=== PATIENT | female | born 1975 | race Caucasian/White ===

== ENCOUNTER 2020-03-03 06:04 | Outpatient (REF) | payer OTHER, SELFPAY ==
[2020-03-03 06:49] LABS: MANUAL DIFF FLAG NO
[2020-03-03 07:00] LABS: Basophils Percent Auto 0.7 % (0-2); Eosinophils Absolute Auto 0.2 X10*3/uL (0.0-0.4); Eosinophils Percent Auto 2.8 % (0-4); Hematocrit 37.9 % (37-47); Hemoglobin 12.3 g/dl (12.0-16.0); Imm Gran Abs Auto 0.01 X10*3/uL (0.00-0.03); Imm Gran Pct Auto 0.2 % (0.0-0.4); Lymphocytes Absolute Auto 2.4 X10*3/uL (1.2-4.9); Lymphocytes Percent Auto 44.4 % (20-40); Mean Corpuscular HGB Conc 32.5 g/dl (31.0-35.0); Mean Corpuscular Hemoglobin 29.9 pg (27.0-33.0); Mean Platelet Volume 11.1 fL (9.4-12.3); Monocytes Absolute Auto 0.3 X10*3/uL (0.1-1.2); Monocytes Percent Auto 5.2 % (2-11); Neutrophils Absolute Auto 2.5 X10*3/uL (2.0-8.3); Neutrophils Percent Auto 46.7 % (45-73); Platelet Count 180 X10*3/uL (160-400); Red Blood Count 4.12 X10*6/uL (4.20-5.50); Red Cell Distribution Width 13.1 % (11.0-16.0); White Blood Count 5.4 X10*3/uL (4.8-10.8)
[2020-03-03 07:14] LABS: Alanine Aminotransferase 23 U/L (0-31); Albumin Level 4.6 g/dL (3.5-5.0); Alkaline Phosphatase 68 U/L (39-117); Anion Gap 10 (12-20); Aspartate Amino Transferase 28 U/L (5-31); Bilirubin Total 0.4 mg/dL (0.0-1.0); Blood Urea Nitrogen 16 mg/dL (9-16); Calcium 9.7 mg/dL (8.4-10.2); Carbon Dioxide 31 mmol/L (22-29); Chloride 103 mmol/L (96-108); Cholesterol 199 mg/dL; Estimated Glomerular Filt Rate > 60; Glucose Fasting 100 mg/dL (60-99); HDL Cholesterol 59 mg/dL; LDL Cholesterol Calculated 124 mg/dl; Potassium 4.3 mmol/l (3.3-5.1); Sodium 140 mmol/L (135-145); Total Protein 7.3 g/dL (6.5-8.0); Triglycerides 84 mg/dL
[2020-03-03 07:49] LABS: Glucose Urine UA NEG (NEG); Leukocyte Esterase Urine NEG (NEG); Nitrite Urine NEG (NEG); Specific Gravity - Urine 1.025 (1.005-1.025); Urine Blood NEG (NEG); Urine Ketones NEG (NEG); Urine Protein NEG (NEG-TRACE)
[2020-03-03 07:52] LABS: Appearance Urine CLEAR; Color Urine YELLOW
[2020-03-03 08:09] LABS: RBC Urine 0 /HPF (0)
[2020-03-03 08:10] LABS: Bacteria Urine TRACE /LPF; Squamous Epithelial Cell Urine 1+ /LPF
== END 2020-03-03 06:05 | disposition home or self-care (01) ==
LOC: HO.LAB 06:04
PROVIDERS: Visit Provider Internal Medicine
DX: E78.00 Pure hypercholesterolemia, unspecified (principal); N39.0 Urinary tract infection, site not specified; F17.200 Nicotine dependence, unspecified, uncomplicated
CPT/HCPCS: 36415; 80053; 80061; 81001; 85025

== ENCOUNTER 2021-01-26 14:40 | Outpatient (REF) | payer OTHER, SELFPAY ==
[2021-01-26 17:57] LABS: Appearance Urine HAZY; Color Urine DK YELLOW; Glucose Urine UA 100 MG/DL (NEG); Leukocyte Esterase Urine TRACE (NEG); Nitrite Urine POS (NEG); UACC Culture Trigger YES; Urine Blood NEG (NEG); Urine Ketones 15 MG/DL (NEG); Urine Protein 2+ MG/DL (NEG-TRACE)
[2021-01-26 18:11] LABS: Bacteria Urine 2+ /LPF; RBC Urine 0-2 /HPF (0); Squamous Epithelial Cell Urine TRACE /LPF
== END 2021-01-26 14:41 | disposition home or self-care (01) ==
LOC: HO.LAB 14:40
PROVIDERS: PCP Internal Medicine; Visit Provider Internal Medicine
DX: R30.0 Dysuria (principal)
CPT/HCPCS: 81001; 87086; 87088; 87186

== ENCOUNTER 2021-03-31 14:15 | Outpatient (REF) | payer OTHER, SELFPAY ==
[2021-03-31 15:02] LABS: Appearance Urine CLEAR; Color Urine YELLOW; Glucose Urine UA NEG (NEG); Leukocyte Esterase Urine NEG (NEG); Nitrite Urine POS (NEG); PH 6.5 (5.0-8.0); Specific Gravity - Urine 1.015 (1.005-1.025); UACC Culture Trigger YES; Urine Blood NEG (NEG); Urine Ketones NEG (NEG); Urine Protein TRACE MG/DL (NEG-TRACE)
[2021-03-31 15:22] LABS: Bacteria Urine 1+ /LPF; RBC Urine 0 /HPF (0); Squamous Epithelial Cell Urine 1+ /LPF; WBC Urine 0 /HPF (0-4)
== END 2021-03-31 14:16 | disposition home or self-care (01) ==
LOC: HO.LAB 14:15
PROVIDERS: PCP Internal Medicine; Visit Provider Internal Medicine
DX: R30.0 Dysuria (principal)
CPT/HCPCS: 81001; 81003; 87086; 87088; 87186

== ENCOUNTER 2021-04-20 05:55 | Outpatient (REF) | payer BC, SELFPAY ==
[2021-04-20 06:08] LABS: MANUAL DIFF FLAG NO
[2021-04-20 07:36] LABS: Basophils Percent Auto 0.8 % (0-2); Eosinophils Absolute Auto 0.2 X10*3/uL (0.0-0.4); Eosinophils Percent Auto 3.1 % (0-4); Hematocrit 38.6 % (37.0-47.0); Hemoglobin 12.5 g/dl (12.0-16.0); Imm Gran Abs Auto 0.01 X10*3/uL (0.00-0.03); Imm Gran Pct Auto 0.2 % (0.0-0.4); Lymphocytes Absolute Auto 2.3 X10*3/uL (1.2-4.9); Lymphocytes Percent Auto 47.2 % (20-40); Mean Corpuscular HGB Conc 32.4 g/dl (31.0-35.0); Mean Corpuscular Hemoglobin 29.7 pg (27.0-33.0); Mean Corpuscular Volume 91.7 fL (80.0-98.0); Mean Platelet Volume 11.4 fL (9.4-12.3); Monocytes Absolute Auto 0.3 X10*3/uL (0.1-1.2); Monocytes Percent Auto 6.2 % (2-11); Neutrophils Percent Auto 42.5 % (45-73); Platelet Count 192 X10*3/uL (160-400); Red Blood Count 4.21 X10*6/uL (4.20-5.50); Red Cell Distribution Width 13.4 % (11.0-16.0); White Blood Count 4.8 X10*3/uL (4.8-10.8)
[2021-04-20 08:12] LABS: Alanine Aminotransferase 20 U/L (0-31); Albumin Level 4.5 g/dL (3.5-5.0); Alkaline Phosphatase 76 U/L (39-117); Anion Gap 12 (12-20); Aspartate Amino Transferase 25 U/L (5-31); Bilirubin Total < 0.2 mg/dL (0.0-1.0); Blood Urea Nitrogen 11 mg/dL (9-16); Carbon Dioxide 29 mmol/L (22-29); Chloride 104 mmol/L (96-108); Cholesterol 184 mg/dL; Estimated Glomerular Filt Rate > 60; Glucose Fasting 89 mg/dL (60-99); HDL Cholesterol 53 mg/dL; LDL Cholesterol Calculated 113 mg/dl; Potassium 4.3 mmol/L (3.3-5.1); Sodium 141 mmol/L (135-145); Total Protein 7.4 g/dL (6.5-8.0); Triglycerides 94 mg/dL
[2021-04-20 09:06] LABS: Appearance Urine CLEAR; Color Urine YELLOW; Glucose Urine UA NEG (NEG); Leukocyte Esterase Urine NEG (NEG); Nitrite Urine NEG (NEG); Specific Gravity - Urine 1.025 (1.005-1.025); Urine Blood NEG (NEG); Urine Ketones NEG (NEG); Urine Protein NEG (NEG-TRACE)
== END 2021-04-20 05:56 | disposition home or self-care (01) ==
LOC: HO.LAB 05:55
PROVIDERS: PCP Internal Medicine; Visit Provider Internal Medicine
DX: E78.00 Pure hypercholesterolemia, unspecified (principal); F11.11 Opioid abuse, in remission; R30.0 Dysuria; F17.200 Nicotine dependence, unspecified, uncomplicated
CPT/HCPCS: 36415; 80053; 80061; 81003; 85025

== ENCOUNTER 2021-08-05 20:58 | Emergency (ER) | payer OTHER, BC, SELFPAY ==
--- NOTE | ~2021-08-05 | XR_ITS ---
EXAMINATION: 1. LEFT SHOULDER. 2. LEFT HUMERUS. 3. LEFT ELBOW. CLINICAL INFORMATION: Fall. Pain. COMPARISON: None TECHNIQUE: 1. Left shoulder. 4 views 2. Left humerus. 2 views 3. Left elbow. 3 views. FINDINGS: 1. Left shoulder. No fracture or dislocation of shoulder. Glenohumeral and acromioclavicular joints are normal. 2. Left humerus. No fracture of the humerus. 2 small soft tissue calcifications in left axilla. 3. Left elbow. Normal left elbow. No fracture or dislocation. 2 small ossification at the medial malleolus of the humerus is chronic finding. There is no joint effusion. XR/XR humerus LT IMPRESSION: 1. Left shoulder. Normal left shoulder. 2. Left humerus. Normal left humerus. 3. Left elbow. Normal left elbow.
--- NOTE | ~2021-08-05 | XR_ITS ---
EXAMINATION: 1. LEFT SHOULDER. 2. LEFT HUMERUS. 3. LEFT ELBOW. CLINICAL INFORMATION: Fall. Pain. COMPARISON: None TECHNIQUE: 1. Left shoulder. 4 views 2. Left humerus. 2 views 3. Left elbow. 3 views. FINDINGS: 1. Left shoulder. No fracture or dislocation of shoulder. Glenohumeral and acromioclavicular joints are normal. 2. Left humerus. No fracture of the humerus. 2 small soft tissue calcifications in left axilla. 3. Left elbow. Normal left elbow. No fracture or dislocation. 2 small ossification at the medial malleolus of the humerus is chronic finding. There is no joint effusion. XR/XR shoulder LT min 2V IMPRESSION: 1. Left shoulder. Normal left shoulder. 2. Left humerus. Normal left humerus. 3. Left elbow. Normal left elbow.
--- NOTE | ~2021-08-05 | XR_ITS ---
EXAMINATION: 1. LEFT SHOULDER. 2. LEFT HUMERUS. 3. LEFT ELBOW. CLINICAL INFORMATION: Fall. Pain. COMPARISON: None TECHNIQUE: 1. Left shoulder. 4 views 2. Left humerus. 2 views 3. Left elbow. 3 views. FINDINGS: 1. Left shoulder. No fracture or dislocation of shoulder. Glenohumeral and acromioclavicular joints are normal. 2. Left humerus. No fracture of the humerus. 2 small soft tissue calcifications in left axilla. 3. Left elbow. Normal left elbow. No fracture or dislocation. 2 small ossification at the medial malleolus of the humerus is chronic finding. There is no joint effusion. XR/XR elbow LT min 3V IMPRESSION: 1. Left shoulder. Normal left shoulder. 2. Left humerus. Normal left humerus. 3. Left elbow. Normal left elbow.
[2021-08-05 21:09] VITALS: BP 152/107; PULSE 78; RESP 18; TEMP 36.3; O2SAT 99; BMI 21.9
--- NOTE | 2021-08-05 21:54 | ED.EXTPRO ---
HPI - Extremity Problem General Chief complaint: Extremity Injury, Upper Stated complaint: Fall at work/arm pain Time Seen by Provider: 08/05/21 21:46 Source: patient Mode of arrival: ambulatory Limitations: no limitations History of Present Illness HPI Narrative: Patient comes to the emergency room complaining of left-sided shoulder, upper arm, elbow pain. Patient states she tripped, fell on the left side of her body. Patient has history of a previous injury leading to an elbow dislocation. Patient states it feels about the same. Related Data Home Medications Medication Instructions Recorded Confirmed buprenorphine 8 mg-naloxone 2 mg 10 mg SUBLINGUAL DAILY 03/06/20 04/20/21 sublingual film ibuprofen 800 mg tablet 800 mg PO Q8H PRN 03/06/20 04/20/21 chlorhexidine gluconate 4 % 1 appl TOPICAL TID ml 06/28/20 04/20/21 topical liquid (Hibiclens) mupirocin 2 % topical ointment 1 appl TOPICAL TID 06/28/20 04/20/21 Previous Rx's Medication Instructions Recorded pravastatin 80 mg tablet 80 mg PO DAILY 90 Days #90 tab 04/20/21 Allergies Allergy/AdvReac Type Severity Reaction Status Date / Time penicillin V AdvReac Unknown Vomiting, Verified 04/20/21 14:43 diarrhea, Vommiting, diarrhea Penicillins [PENICILLINS] AdvReac Unknown VOMITING, Verified 04/20/21 14:43 DIARRHEA, SWEATING Review of Systems Review of Systems: Constitutional : No Weight loss, No Fever, No Chills, No Night Sweats, No Fatigue, No Malaise ENT/Mouth : No Hearing loss, No Ear Pain, No Nasal Congestion, No Sinus Pain, No Hoarseness, No sore throat, No Rhinorrhea, No Swallowing Difficulty Eyes: No Eye Pain, No Swelling, No Redness, No Foreign Body, No Discharge, No Vision Changes Cardiovascular : No Chest Pain, No SOB, No Dyspnea on Exertion, No Orthopnea, No Edema, No Palpitations Respiratory : No Cough, No Sputum, No Wheezing, No Smoke Exposure, No Dyspnea Gastrointestinal : No Nausea, No Vomiting, No Diarrhea, No Constipation, No abdominal Pain, No Hematochezia, No Melena Genitourinary : no irregular bleeding, No Dysuria, No Urinary Frequency, No Hematuria, No Urinary Incontinence, No Urgency, No Flank Pain, No Urinary Flow Changes, No Hesitancy Musculoskeletal : Complaining of left shoulder/upper arm/elbow pain Skin : No Skin Lesions, No rash Neuro : No Weakness, No Numbness, No Paresthesias, No Loss of Consciousness, No Dizziness, No Headache Psych : No Anxiety/Panic, No Depression, No SI/HI/AH/VH, No Social Issues, Heme/Lymph: No Bruising, No Bleeding,No Lymphadenopathy Endocrine : No Polyuria, No Polydipsia, No Temperature Intolerance [facility] Past Medical History Medical History History of opioid abuse Primary insomnia Pure hypercholesterolemia Smoker Surgical History History of cardiac catheterization History of microdiscectomy History of removal of cyst History of shoulder surgery S/P YU-BSO (total abdominal hysterectomy and bilateral salpingo-oophorectomy) Family History Family History Father Vascular disease Myocardial infarction Mother COPD (chronic obstructive pulmonary disease) Lung cancer Brother Myocardial infarction Sister Stroke Paternal Grandmother Stroke Other Substance abuse Social History Social History Housing: Apartment Alcohol intake: former Patient Tobacco Use Status: Current everyday Tobacco user Cigarettes Per Day: 10 Second Hand Smoke Exposure: Yes Advance Directives: No service: No Current occupational status: employed Physical Exam Vital Signs: Vital Signs: Last Vital Signs Temp 97.3 F 08/05/21 21:09 Pulse 73 08/05/21 22:18 Resp 16 08/05/21 22:18 BP 139/82 08/05/21 22:18 Pulse Ox 97 08/05/21 22:18 BMI result Body Mass Index 21.9 Const: Other: Appearance: Alert. Oriented X3. No acute distress. Eyes: Pupils equal, round and reactive to light. ENT: Pharynx normal. Neck: Normal inspection. Neck supple. No lymph nodes noted. No crepitus CVS: Normal heart rate and rhythm. Pulses normal. Normal S1 and S2 Respiratory: No respiratory distress. Breath sounds normal. No Wheezing. No rales Abdomen: Soft and nontender. No rigidity. No distention. Skin: Skin warm and dry. Normal skin color. Normal skin turgor. Extremities: No lower extremity edema. Patient holding her left arm with elbow flexed, towards her abdomen. Patient refusing to move the arm due to pain. No pain to palpation over the clavicle or the shoulder joint, pain to palpation over the upper humeral side lateral, no pain to flexion and extension of the left elbow. Neuro: Oriented X 3. No motor deficit. No sensory deficit. Moving all extremities. No slurred speech. CN 2 through 12 grossly intact Psych: calm, cooperative, normal affect Course Course Course Narrative: Discussed the x-rays with the patient, no acute findings. Likely having a contusion Versus sprain. I discussed with the patient that if the pain does not improve with anti-inflammatories in the next 3 days, she needs to follow-up with the primary care physician, more advanced imaging such as MRI may be needed. Discharge Plan Discharge Clinical Impression: Fall, Contusion Patient Disposition: Home, Self-Care Instructions: Contusion in Adults (ED) Additional Instructions: Please follow-up with your primary care physician tomorrow. If you have any worsening or new symptoms, please return to the emergency room or call 911 Prescriptions: No Action buprenorphine-naloxone 8-2 mg film 10 mg sublingual DAILY 0RF ibuprofen 800 mg tablet 800 mg PO Q8H PRN0RF mupirocin 2 % ointment 1 appl topical TID 0RF chlorhexidine gluconate [Hibiclens] 4 % liquid 1 appl topical TID 0RF pravastatin 80 mg tablet 80 mg PO DAILY 90 Days Qty: 90 3RF Referrals: Saba Stephenson PA-C [Physician Small Business Director] - 3 days
[2021-08-05] MEDS: Acetaminophen 325 MG TABLET 975 MG PO (22:17)
[2021-08-05 22:18] VITALS: BP 139/82; PULSE 73; RESP 16; O2SAT 97
== END 2021-08-05 23:14 | disposition home or self-care (01) ==
PROVIDERS: Emergency Provider Emergency Medicine; PCP Internal Medicine
DX: S40.012A Contusion of left shoulder, initial encounter (principal); M25.522 Pain in left elbow; W01.0XXA Fall on same level from slipping, tripping and stumbling without subsequent striking against object, initial encounter; Y93.9 Activity, unspecified; Y92.9 Unspecified place or not applicable; Y99.9 Unspecified external cause status; Z79.899 Other long term (current) drug therapy; Z87.891 Personal history of nicotine dependence
CPT/HCPCS: 73030; 73060; 73080; 99283; 99284

== ENCOUNTER 2021-08-17 06:16 | Outpatient (REF) | payer BC, SELFPAY ==
[2021-08-17 08:18] LABS: TSH reflex Free T4 3.18 uIU/mL (0.32-4.0); Vitamin D 25-OH Total 50.2 ng/mL (>30)
[2021-08-17 08:28] LABS: Alanine Aminotransferase 31 U/L (0-31); Albumin Level 4.4 g/dL (3.5-5.0); Alkaline Phosphatase 76 U/L (39-117); Anion Gap 12 (12-20); Aspartate Amino Transferase 36 U/L (5-31); Bilirubin Total 0.6 mg/dL (0.0-1.0); Blood Urea Nitrogen 14 mg/dL (9-16); Carbon Dioxide 28 mmol/L (22-29); Chloride 105 mmol/L (96-108); Cholesterol 225 mg/dL; Estimated Glomerular Filt Rate > 60; Glucose Fasting 87 mg/dL (60-99); HDL Cholesterol 54 mg/dL; LDL Cholesterol Calculated 146 mg/dl; Potassium 4.2 mmol/L (3.3-5.1); Sodium 141 mmol/L (135-145); Total Protein 7.5 g/dL (6.5-8.0); Triglycerides 125 mg/dL
== END 2021-08-17 06:17 | disposition home or self-care (01) ==
LOC: HO.LAB 06:16
PROVIDERS: PCP Internal Medicine; Visit Provider Internal Medicine
DX: E78.00 Pure hypercholesterolemia, unspecified (principal); E55.9 Vitamin D deficiency, unspecified
CPT/HCPCS: 36415; 80053; 80061; 82306; 84443

== ENCOUNTER 2021-10-05 08:46 | Outpatient (REF) | payer BC, SELFPAY ==
--- NOTE | ~2021-10-05 | MM_ITS ---
EXAMINATION: MM SCREENING DIGITAL BREAST TOMOSYNTHESIS, BILATERAL CLINICAL INFORMATION: Screening. Asymptomatic. The lifetime risk of breast cancer based on the Tyrer-Cuzick Model is 4%. COMPARISON: Mammography: 11/02/2017 TECHNIQUE: Digital breast tomosynthesis is performed in both the craniocaudal and mediolateral oblique views along with computer-aided detection (CAD). Synthesized 2D images are generated from the tomosynthesis. FINDINGS: There are scattered areas of fibroglandular density (ACR BI-RADS breast composition Category b). There are no significant masses, abnormal calcifications, or other abnormalities. No developing density or architectural abnormality. Low right axillary tail node stable. No significant changes. MM/MM tomosynthesis screening BI IMPRESSION: No mammographic evidence of malignancy. ASSESSMENT: BI-RADS 2: Benign RECOMMENDATION: Routine annual mammography screening. This patient's information was entered into a reminder system with a target due date for their next mammogram.
--- NOTE | ~2021-10-05 | MM_ITS ---
EXAMINATION: BONE DENSITOMETRY CLINICAL INDICATION: Asymptomatic postprocedural ovarian failure. COMPARISON: Baseline BD dated 01/22/2016. TECHNIQUE: Using a Next 1 Interactive DXA System (software version: 13.1) manufactured by [employer], dual-energy x-ray absorptiometry was performed of the lumbar spine and left hip. The images are of good technical quality. Summary results are attached. FINDINGS: AP SPINE L1-L3 (excluding L4): The data of L1-L4 has been changed to exclude the L4 vertebral body, because degenerative changes at this level may cause overestimation of lumbar spine density. Current: BMD 0.917 g/cm2, Z-score -1.8, T-score -2.1, osteopenia, 4.3% decrease from baseline (<5% change is not significant). Baseline: BMD 0.958 g/cm2. LEFT FEMUR, NECK: Current: BMD 0.798 g/cm2, Z-score -1.0, T-score -1.7, osteopenia. Baseline: BMD 0.918 g/cm2. LEFT FEMUR, TOTAL: Current: BMD 0.776 g/cm2, Z-score -1.4, T-score -1.8, osteopenia, 5.5% decrease from baseline (<5% change is not significant). Baseline: BMD 0.821 g/cm2. IDENTIFIED RISK FACTORS: Early menopause, secondary osteoporosis, tobacco use (current smoker), hysterectomy, bilateral oophorectomy. HISTORY OF FRACTURE: None listed. MEDICATIONS: Calcium or multivitamin. MM/XR DEXA axial skeleton IMPRESSION: 1. DIAGNOSIS: Osteopenia based on the lowest T-score value of -2.1 in the lumbar spine applying World Health Organization criteria. 2. 10-YEAR FRACTURE RISK PREDICTION, FRAX: Major osteoporotic fracture (clinical spine, forearm, hip or shoulder) 3.6%. Hip fracture 0.7%. 3. Treatment Recommendations: NOF guidelines recommend consideration for treatment in postmenopausal women and men age 50 and older presenting with the following: -A hip or vertebral (clinical or morphometric) fracture. -T-score less than or equal to -2.5 at the femoral neck or spine after appropriate evaluation to exclude secondary causes. -Low bone mass at the hip or spine and a 10-year fracture probability by FRAX of greater than or equal to 3% for hip fracture or greater than or equal to 20% for major osteoporotic fracture based on the [place] adapted WHO algorithm. 4. Other Recommendations: All treatment decisions require clinical judgment and consideration of individual patient factors, including patient preferences, comorbidities, previous drug use, risk factors not captured in the FRAX model (e.g. frailty, falls, vitamin D deficiency, increased bone turnover, interval significant decline in bone density) and possible under or overestimation of fracture risk by FRAX. Additional medical evaluation for secondary cause of low bone mineral density may be appropriate. FUTURE SCAN RECOMMENDATION: People with diagnosed cases of osteoporosis or at high risk for fracture should have regular bone mineral density tests. For patients eligible for Medicare, routine testing is allowed once every 2 years. The testing frequency can be increased to one year for patients who have rapidly progressing disease, those who are receiving or discontinuing medical therapy to restore bone mass, or have additional risk factors.
== END 2021-10-05 08:47 | disposition home or self-care (01) ==
LOC: HO.MAMMO 08:46
PROVIDERS: Visit Provider Internal Medicine
DX: Z12.31 Encounter for screening mammogram for malignant neoplasm of breast (principal); Z13.820 Encounter for screening for osteoporosis; E89.40 Asymptomatic postprocedural ovarian failure; M85.80 Other specified disorders of bone density and structure, unspecified site; Z78.0 Asymptomatic menopausal state
CPT/HCPCS: 77063; 77067; 77080

== ENCOUNTER 2021-12-22 06:36 | Outpatient (REF) | payer BC, SELFPAY ==
[2021-12-22 06:44] LABS: MANUAL DIFF FLAG NO
[2021-12-22 07:32] LABS: Basophils Absolute Auto 0.1 X10*3/uL (0.0-0.2); Basophils Percent Auto 0.7 % (0-2); Eosinophils Absolute Auto 0.1 X10*3/uL (0.0-0.4); Eosinophils Percent Auto 1.9 % (0-4); Hematocrit 40.2 % (37.0-47.0); Hemoglobin 13.2 g/dl (12.0-16.0); Imm Gran Abs Auto 0.02 X10*3/uL (0.00-0.03); Imm Gran Pct Auto 0.3 % (0.0-0.4); Lymphocytes Absolute Auto 2.7 X10*3/uL (1.2-4.9); Lymphocytes Percent Auto 36.8 % (20-40); Mean Corpuscular HGB Conc 32.8 g/dl (31.0-35.0); Mean Corpuscular Hemoglobin 29.7 pg (27.0-33.0); Mean Corpuscular Volume 90.5 fL (80.0-98.0); Mean Platelet Volume 11.4 fL (9.4-12.3); Monocytes Absolute Auto 0.4 X10*3/uL (0.1-1.2); Neutrophils Percent Auto 54.3 % (45-73); Platelet Count 197 X10*3/uL (160-400); Red Blood Count 4.44 X10*6/uL (4.20-5.50); Red Cell Distribution Width 13.8 % (11.0-16.0); White Blood Count 7.3 X10*3/uL (4.8-10.8)
[2021-12-22 08:03] LABS: Alanine Aminotransferase 14 U/L (0-31); Albumin Level 4.6 g/dL (3.5-5.0); Alkaline Phosphatase 71 U/L (39-117); Anion Gap 15 (12-20); Aspartate Amino Transferase 22 U/L (5-31); Blood Urea Nitrogen 18 mg/dL (9-16); Calcium 9.7 mg/dL (8.4-10.2); Carbon Dioxide 26 mmol/L (22-29); Chloride 104 mmol/L (96-108); Cholesterol 215 mg/dL; Estimated Glomerular Filt Rate > 60; Glucose Fasting 97 mg/dL (60-99); HDL Cholesterol 58 mg/dL; LDL Cholesterol Calculated 142 mg/dl; Potassium 4.5 mmol/L (3.3-5.1); Sodium 140 mmol/L (135-145); Total Protein 7.5 g/dL (6.5-8.0); Triglycerides 79 mg/dL
[2021-12-22 08:04] LABS: Appearance Urine Clear; Color Urine Yellow; Glucose Urine UA Negative (Negative); Leukocyte Esterase Urine Small (1+) (Negative); Nitrite Urine Negative (Negative); PH 5.5 (5.0-9.0); Urine Blood Negative (Negative); Urine Ketones Negative (Negative); Urine Protein Negative (Neg-Trace)
[2021-12-22 08:13] LABS: Bilirubin Total 0.2 mg/dL (0.0-1.0)
[2021-12-22 08:19] LABS: Bacteria Urine None Seen (None Seen); Hyaline Casts Urine 0-2 /LPF (0-2); RBC Urine 0-2 /HPF (0-2); UACC Culture Trigger YES; WBC Urine 0-5 /HPF (0-5)
[2021-12-22 08:21] LABS: TSH reflex Free T4 2.71 uIU/mL (0.32-4.0); Vitamin D 25-OH Total 63.5 ng/mL (>30)
== END 2021-12-22 06:37 | disposition home or self-care (01) ==
LOC: HO.LAB 06:36
PROVIDERS: PCP Internal Medicine; Visit Provider Internal Medicine
DX: I10 Essential (primary) hypertension (principal); E55.9 Vitamin D deficiency, unspecified; E78.00 Pure hypercholesterolemia, unspecified
CPT/HCPCS: 36415; 80053; 80061; 81001; 81003; 82306; 84443; 85025; 87086

== ENCOUNTER 2022-05-07 08:35 | Outpatient (REF) | payer BC, SELFPAY ==
[2022-05-07 09:50] LABS: Alanine Aminotransferase 25 U/L (0-31); Albumin Level 4.3 g/dL (3.5-5.0); Alkaline Phosphatase 85 U/L (39-117); Anion Gap 12 (12-20); Aspartate Amino Transferase 28 U/L (5-31); Bilirubin Total 0.4 mg/dL (0.0-1.0); Blood Urea Nitrogen 12 mg/dL (9-16); Calcium 9.8 mg/dL (8.4-10.2); Carbon Dioxide 29 mmol/L (22-29); Chloride 105 mmol/L (96-108); Cholesterol 149 mg/dL; Estimated Glomerular Filt Rate > 60; Glucose Fasting 79 mg/dL (60-99); HDL Cholesterol 41 mg/dL; LDL Cholesterol Calculated 91 mg/dl; Potassium 4.3 mmol/L (3.3-5.1); Sodium 142 mmol/L (135-145); Total Protein 6.8 g/dL (6.5-8.0); Triglycerides 87 mg/dL
== END 2022-05-07 08:36 | disposition home or self-care (01) ==
LOC: HO.LAB 08:35
PROVIDERS: PCP Internal Medicine; Visit Provider Internal Medicine
DX: E78.00 Pure hypercholesterolemia, unspecified (principal)
CPT/HCPCS: 36415; 80053; 80061

== ENCOUNTER 2022-05-10 09:49 | Outpatient (AMB) | payer BC, SELFPAY ==
--- NOTE | 2022-05-10 09:51 | A.OFFPC_ITS ---
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: No Accompanied by: Self / Same As Patient Allergies penicillin V Adverse Reaction (Unknown, Verified 11/29/22 11:11) Vomiting, diarrhea, Vommiting, diarrhea Penicillins [PENICILLINS] Adverse Reaction (Unknown, Verified 11/29/22 11:11) VOMITING, DIARRHEA, SWEATING Medication List - Last Reconciled 05/10/22 by David Frost MD atorvastatin 80 mg PO BEDTIME 90 days buprenorphine-naloxone 8-2 mg 10 mg sublingual DAILY polyethylene glycol 3350 (Miralax) 17 grams PO DAILY 30 days Tobacco use date assessed: 05/10/22 HPI 4 Month Follow Up HPI Details Patient comes in today for her follow up visit States that she tested positive for COVID a couple of weeks ago on 04/23/22 Recalls that she felt sick for the most part of this month - symptoms were mostly increased sinus/nasal congestion Relates that she also lost her sense of taste and smell recently but these are slowly coming back States that she still sounds nasal , with (+) sinus congestion but she denies SOB Still has some occasional coughing but thinks that these are mostly from her smoking Recalls that she was vaccinated for COVID before but has not yet gotten the latest booster shot States that she has been back to work for about 1 week now but still feels fatigued often and easily She denies any headaches, dizziness or fever Denies any chest pains No nausea/vomiting, no abdominal pain and no change in bowel habits noted Needs her Atorvastatin Rx refilled Has her follow up labs done a few days ago - to discuss her results Would also like to get a flu shot today [facility] Medical History History of opioid abuse Primary insomnia Pure hypercholesterolemia Smoker Surgical History History of cardiac catheterization History of microdiscectomy History of removal of cyst History of shoulder surgery S/P YU-BSO (total abdominal hysterectomy and bilateral salpingo-oophorectomy) (~2002) Family History Father Vascular disease Myocardial infarction Mother COPD (chronic obstructive pulmonary disease) Lung cancer Brother Myocardial infarction Sister Stroke Paternal Grandmother Stroke Other Substance abuse Social History Housing: Apartment Alcohol intake: former Patient Tobacco Use Status: Current everyday Tobacco user Cigarettes Per Day: 10 e-Cigarette/Vaping Use: Never Used Second Hand Smoke Exposure: Yes service: No Current occupational status: employed Cognitive needs: No Hearing needs: Yes (Left ear hearing loss per pt) Vision needs: Yes Questionnaire PHQ-9 Over the last 2 weeks, how often have you been bothered by any of the following problems? 1. Little interest or pleasure in doing things: not at all 2. Feeling down, depressed, or hopeless: not at all 3. Trouble falling or staying asleep, or sleeping too much: not at all 4. Feeling tired or having little energy: not at all 5. Poor appetite or overeating: not at all 6. Feeling bad about yourself - or that you are a failure or have let yourself or your family down: not at all 7. Trouble concentrating on things, such as reading the newspaper or watching television: not at all 8. Moving or speaking so slowly that other people could have noticed. Or the opposite - being so fidgety or restless that you have been moving around a lot more than usual: not at all 9. Thoughts that you would be better off or of hurting yourself in some way: not at all Total score: 0 Depression Screening Interpretation: Negative 27925 - PHQ-9 Billing: Yes Source: Developed by Drs. Jared Lyn, Darby Echeverria, Adam Casiano and colleagues, with an educational tania from [employer]. Thrive Questionnaire Declines Thrive assessment: No Date Thrive assessed: 05/10/22 I am a: Patient What is your living situation today?: I have a steady place to live Within the past 12 months, did the food you bought not last and you didn't have the money to get more?: Never true Within the past 12 months, did you worry whether your food would run out before you got money to buy more?: Never true Do you have trouble paying for medicines?: No Do you have trouble getting transportation to medical appointments?: No Do you have trouble paying your heating and electricity bill?: No Do you have trouble taking care of your child, family member or friend?: No Do you have trouble with day-to-day activities such as bathing, preparing meals, shopping, managing finances, etc.?: No Are you currently unemployed and looking for a job?: No Are you interested in more education?: No Currently or been in a relationship where the following occur: no concerns reported AUDIT C Alcohol Use Questionnaire (AUDIT-C) 1. How often do you have a drink containing alcohol?: Never 3. How often do you have six or more drinks on one occasion?: Never Total Score: 0 Score Reviewed/Action Taken: Yes ALEN-7 AMB Questionnaire ALEN-7 Date ALEN - 7 assessed: 05/10/22 Feeling nervous, anxious, or on edge: 3 = Nearly every day Not being able to stop or control worryin = Not at all Worrying too much about different things: 0 = Not at all Trouble relaxin = More than half the days Being so restless that it is hard to sit still: 3 = Nearly every day Becoming easily annoyed or irritable: 0 = Not at all Feeling afraid as if something awful might happen: 0 = Not at all Total ALEN-7 score (0-4 normal; 5-9 mild; 10-14 moderate; 15-21 severe): 8 Source: Developed by Drs. Jared Lyn, Darby Echeverria, Adam Casiano and colleagues, with an educational tania from [employer]. ALEN-7 Assessment Billing ALEN-7 Assessment Tool: AELN-7 Assessment 96405 Review of Systems Const Denies chills, Reports fatigue, Denies fever(s) and Denies headache(s) ENT Denies dysphagia, Denies dizziness, Denies otalgia, Denies headache(s), Reports nasal congestion (mild, improving), Denies odynophagia, Denies sinus pain and Denies sore throat Card Denies chest pain, Denies palpitations and Denies dyspnea Resp Denies chest congestion, Reports cough (occasional, non-productive) and Denies dyspnea GI Denies abdominal pain, Denies constipation, Denies dysphagia, Denies heartburn, Denies diarrhea, Denies nausea, Denies odynophagia and Denies vomiting Denies difficulty voiding, Denies nocturia and Denies dysuria Neuro Denies dizziness and Denies headache(s) Endo Reports fatigue and Denies palpitations Physical exam (Primary Care) Vital Signs: Last Vital Signs Temp 96.6 F L 05/10/22 09:52 Pulse 70 05/10/22 09:52 BP 96/68 05/10/22 09:52 Pulse Ox 98 05/10/22 09:52 Oxygen Delivery Method Room Air 05/10/22 09:52 BMI result Body Mass Index 21.1 Tobacco/Smoking Status: Tobacco use Status Tobacco use date assessed 05/10/22 05/10/22 09:53 Patient Tobacco Use Status Current everyday Tobacco 05/10/22 09:53 e-Cigarette/Vaping Use Never Used 05/10/22 09:53 PHQ-9: PHQ-9 Score PHQ-9: Total score 0 05/10/22 10:42 Depression Screening Interpretation: Negative Thrive Assessment: Date of Thrive Assessment Date Thrive assessed 05/10/22 05/10/22 10:03 Currently or been in a relationship where the following occur: no concerns reported Const General: no acute distress and alert HENMT Ears: TM's normal bilaterally and EAC's normal Throat: Yes posterior oropharynx normal and Yes tonsils normal (no TP congestion) Neck Neck: Yes no lymphadenopathy and Yes supple Resp Auscultation: no rales, rhonchi (occasional) lower bilaterally and no wheezes Cardio Rate: regular rate Rhythm: regular rhythm Heart sounds: no murmurs GI Palpation (GI): Soft to palpation and nontender Auscultation: normal bowel sounds Extrem General: Yes no clubbing, cyanosis or edema Office Procedures Flu Questionnaire Does the patient have a severe egg allergy?: No Does the patient have severe life threatening allergies?: Yes Does the patient have a fever or illness today?: No Has the patient ever had Guillain-Breckenridge Syndrome?: No Has the patient ever had any past reaction to a flu shot?: No Immunizations flu vacc [id number] 6mos up(PF) Performing Provider: David Frost MD Administered by: HELIO Arana on 05/10/22 10:41 Dose Route Admin Location Lot Number Expiration Date 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 mL IM Left Deltoid [id number] 10/14/22 [id number] [employer] VIS Given Date VIS Provided VIS Publication Date 05/10/22 Single Vaccine 20 Eligibility Eligibility Date Funding Source Not VF Eligible 05/10/22 Private Results Reviewed Results Reviewed: Laboratory Tests 12/22/21 05/07/22 06:43 08:53 Sodium 142 Potassium 4.3 Creatinine 0.74 Estimated GFR > 60 Fasting Glucose 79 Calcium 9.8 AST 28 ALT 25 Triglycerides 87 Cholesterol 215 149 LDL Cholesterol, Calc 142 91 HDL Cholesterol 58 41 25-OH Vitamin D Total 63.5 TSH 2.71 Assessment and Plan Assessment & Plan (1) Pure hypercholesterolemia: Code(s): E78.00 - Pure hypercholesterolemia, unspecified Plan: Results of her labs done a few days ago reviewed and discussed with patient - lipids have improved significantly from previous Reinforced low cholesterol diet Continue Atorvastatin 80 mg QD - Rx refilled Will recheck labs in 4 months for follow up (2) Osteopenia: Comment: S/P YU-BSO at 27 y/o Code(s): M85.80 - Other specified disorders of bone density and structure, unspecified site Qualifiers: Osteopenia location: unspecified Qualified Code(s): M85.80 - Other specified disorders of bone density and structure, unspecified site Plan: BMD done in September 2021 revealed (+) osteopenia Continue daily calcium and Vitamin D supplements and low-impact exercises daily to help slow down the decline of her bone density Will continue to monitor BMD regularly and repeat it in 2 years; if her BMD continues to decline, will need to start on Rx (3) COVID-19: Code(s): U07.1 - COVID-19 Plan: Resolving but still has some residual symptoms; tested positive on 04/23/2022 May continue OTC cough/cold meds PRN for symptomatic relief (4) History of opioid abuse: Code(s): F11.11 - Opioid abuse, in remission Plan: Continue Suboxone 8-2 mg 10 mg? sublingually once a day Follow-up with the Suboxone clinic as scheduled (5) Constipation: Code(s): K59.00 - Constipation, unspecified Qualifiers: Constipation type: drug induced constipation Qualified Code(s): K59.03 - Drug induced constipation Plan: Most likely due to her Suboxone Encouraged to increase her oral fluids and dietary fiber Continue OTC Senna PRN and Miralax 17 gm QD (6) Primary insomnia: Code(s): F51.01 - Primary insomnia Plan: Sleep hygiene reinforced (7) Smoker: Code(s): F17.200 - Nicotine dependence, unspecified, uncomplicated Plan: Counseled again on smoking cessation Plan Flu vaccine given today Follow up in 4 months Orders: Orders Comprehensive [place]. Panel Fast 4 Months E78.00 - Pure hypercholesterolemia, unspecified Lipid Panel 4 Months E78.00 - Pure hypercholesterolemia, unspecified TSH reflex Free T4 4 Months E78.00 - Pure hypercholesterolemia, unspecified Vitamin D 25-OH Total 4 Months E55.9 - Vitamin D deficiency, unspecified Complete Blood Count Auto Diff 4 Months R53.83 - Other fatigue UA CC w/rflx Micro + Cult 4 Months R30.0 - Dysuria Influenza 5434-2021 Immunization 05/10/22 Z23 - Encounter for immunization Medications: Refilled atorvastatin 80 mg PO BEDTIME 90 tabs 1RF 90 days Coding Level of Care Code Est Pt Level 4 (74116) Diagnoses Pure hypercholesterolemia E78.00 Osteopenia M85.80 Osteopenia location: unspecified COVID-19 U07.1 History of opioid abuse F11.11 Constipation K59.03 Constipation type: drug induced constipation Primary insomnia F51.01 Smoker F17.200 Additional Codes ALEN-7 Assessment Billing - ALEN-7 Assessment Tool: ALEN-7 Assessment 16418 ([id number])
[2022-05-10 09:52] VITALS: BP 96/68; PULSE 70; TEMP 35.9; O2SAT 98; BMI 21.1
== END 2022-05-10 10:44 | disposition home or self-care (01) ==
LOC: HO.HMGH 09:49
PROVIDERS: PCP Internal Medicine; Visit Provider Internal Medicine
DX: Z23 Encounter for immunization
CPT/HCPCS: 90471; 90686; 99214

== ENCOUNTER 2022-11-08 09:44 | Outpatient (REF) | payer BC, SELFPAY ==
--- NOTE | ~2022-11-08 | MM_ITS ---
EXAMINATION: MM SCREENING DIGITAL BREAST TOMOSYNTHESIS, BILATERAL CLINICAL INFORMATION: Screening. Asymptomatic. The lifetime risk of breast cancer based on the Tyrer-Cuzick Model is 3.4%. COMPARISON: Mammography: This study is compared with prior exams dating back to 2018. TECHNIQUE: Digital breast tomosynthesis is performed in both the craniocaudal and mediolateral oblique views along with computer-aided detection (CAD). Synthesized 2D images are generated from the tomosynthesis. FINDINGS: There are scattered areas of fibroglandular density (ACR BI-RADS breast composition Category b). There are no significant masses, abnormal calcifications, or other abnormalities. MM/MM tomosynthesis screening BI IMPRESSION: No mammographic evidence of malignancy. ASSESSMENT: BI-RADS BI-RADS 1 - Negative RECOMMENDATION: Routine annual mammography screening. 1 year F/U This examination should not preclude the clinical evaluation of a suspicious palpable abnormality. This patient's information was entered into a reminder system with a target due date for their next mammogram.
== END 2022-11-08 09:45 | disposition home or self-care (01) ==
LOC: HO.MAMMO 09:44
PROVIDERS: PCP Internal Medicine; Visit Provider Internal Medicine
DX: Z12.31 Encounter for screening mammogram for malignant neoplasm of breast (principal)
CPT/HCPCS: 77063; 77067

== ENCOUNTER → 2022-11-08 10:00 | Outpatient (BNV) | payer BC, SELFPAY | PROVIDERS: PCP Internal Medicine; Visit Provider Radiology Diagnostic Radiology | DX: Z12.31 Encounter for screening mammogram for malignant neoplasm of breast (principal) | CPT/HCPCS: 77063; 77067 ==

== ENCOUNTER 2022-11-18 07:07 | Outpatient (REF) | payer BC, SELFPAY ==
[2022-11-18 07:18] LABS: MANUAL DIFF FLAG NO
[2022-11-18 08:06] LABS: Basophils Absolute Auto 0.1 X10*3/uL (0.0-0.2); Basophils Percent Auto 0.9 % (0-2); Eosinophils Absolute Auto 0.1 X10*3/uL (0.0-0.4); Eosinophils Percent Auto 1.9 % (0-4); Hematocrit 38.6 % (37.0-47.0); Hemoglobin 12.8 g/dl (12.0-16.0); Imm Gran Abs Auto 0.01 X10*3/uL (0.00-0.03); Imm Gran Pct Auto 0.1 % (0.0-0.4); Lymphocytes Absolute Auto 3.1 X10*3/uL (1.2-4.9); Lymphocytes Percent Auto 44.3 % (20-40); Mean Corpuscular HGB Conc 33.2 g/dl (31.0-35.0); Mean Corpuscular Hemoglobin 30.6 pg (27.0-33.0); Mean Corpuscular Volume 92.3 fL (80.0-98.0); Mean Platelet Volume 11.9 fL (9.4-12.3); Monocytes Absolute Auto 0.4 X10*3/uL (0.1-1.2); Monocytes Percent Auto 5.5 % (2-11); Neutrophils Absolute Auto 3.3 x10*3/uL (2.0-8.3); Neutrophils Percent Auto 47.3 % (45-73); Platelet Count 191 X10*3/uL (160-400); Red Blood Count 4.18 X10*6/uL (4.20-5.50); Red Cell Distribution Width 14.1 % (11.0-16.0); White Blood Count 6.9 X10*3/uL (4.8-10.8)
[2022-11-18 09:00] LABS: Alanine Aminotransferase 21 U/L (0-31); Albumin Level 4.3 g/dL (3.5-5.0); Alkaline Phosphatase 66 U/L (39-117); Anion Gap 14 (12-20); Aspartate Amino Transferase 25 U/L (5-31); Bilirubin Total 0.3 mg/dL (0.0-1.0); Blood Urea Nitrogen 11 mg/dL (9-16); Calcium 10.1 mg/dL (8.4-10.2); Carbon Dioxide 24 mmol/L (22-29); Chloride 107 mmol/L (96-108); Cholesterol 162 mg/dL; Estimated Glomerular Filt Rate > 60; Glucose Fasting 87 mg/dL (60-99); HDL Cholesterol 57 mg/dL; LDL Cholesterol Calculated 87 mg/dl; Sodium 141 mmol/L (135-145); Total Protein 7.2 g/dL (6.5-8.0); Triglycerides 94 mg/dL
[2022-11-18 09:16] LABS: TSH reflex Free T4 4.02 uIU/mL (0.32-4.0); Vitamin D 25-OH Total 63.3 ng/mL (>30)
[2022-11-18 09:51] LABS: Appearance Urine Clear; Color Urine Yellow; Glucose Urine UA Negative (Negative); Leukocyte Esterase Urine Small (1+) (Negative); Nitrite Urine Negative (Negative); Specific Gravity - Urine 1.015 (1.005-1.025); UMIC TRIGGER UACC YES; Urine Blood Negative (Negative); Urine Ketones Negative (Negative); Urine Protein Negative (Neg-Trace)
[2022-11-18 09:54] LABS: Free T4 (Free Thyroxine) 1.01 ng/dL (0.71-1.85)
[2022-11-18 09:57] LABS: Bacteria Urine 1+ (None Seen); Hyaline Casts Urine 0-2 /LPF (0-2); RBC Urine 0-2 /HPF (0-2); UACC Culture Trigger YES
== END 2022-11-18 07:08 | disposition home or self-care (01) ==
LOC: HO.LAB 07:07
PROVIDERS: PCP Internal Medicine; Visit Provider Internal Medicine
DX: R53.83 Other fatigue (principal); E55.9 Vitamin D deficiency, unspecified; E78.00 Pure hypercholesterolemia, unspecified
CPT/HCPCS: 36415; 80053; 80061; 81001; 82306; 84439; 84443; 85025; 87086

== ENCOUNTER 2022-11-29 10:23 | Outpatient (AMB) | payer BC, SELFPAY ==
--- NOTE | 2022-11-29 10:31 | A.OFFPC_ITS ---
Vital Signs 11/29/22 10:32 Height 5 ft 5 in Weight 116 lb 6 oz BMI 19.4 BP 100/68 Blood Pressure Location Lt brachial Position Sitting Pulse 77 Pulse Source Pulse Oximeter Pulse Oximetry (%) 96 Oxygen Delivery Method Room Air Intake Visit Reasons: PE - due for colonoscopy Lock Plater Required: No Accompanied by: Self / Same As Patient Allergies penicillin V Adverse Reaction (Unknown, Verified 11/29/22 11:11) Vomiting, diarrhea, Vommiting, diarrhea Penicillins [PENICILLINS] Adverse Reaction (Unknown, Verified 11/29/22 11:11) VOMITING, DIARRHEA, SWEATING Medication List - Last Reconciled 11/29/22 by David Frost MD atorvastatin 80 mg PO BEDTIME 90 days buprenorphine-naloxone 8-2 mg 10 mg sublingual DAILY hydroxyzine HCl Take 1 tablet 20 to 30 minutes before boarding flight/plane. Can take 1 additional dose after 15 to 20 minutes if needed; for anxiety with flying 7 days polyethylene glycol 3350 (Miralax) 17 grams PO DAILY 30 days sennosides (senna) 8.6 mg PO BEDTIME Tobacco use date assessed: 11/29/22 Dental Screening Dental Screen Date: 11/29/22 Did you have a dental visit in the last 12 months?: No Did you have a dental problem in the last 6 months where you did not have access to dental care?: No Was dental information given to patient?: No HPI PE - due for colonoscopy HPI Details Patient comes in today for her annual physical examination States that she currently feels okay She denies any headaches or dizziness Denies any SOB but states that she still has occasional brief chest pains similar to the one she's had years ago - states that these tend to occur independent of activity or exertion, are often mild and not associated with any other symptoms and would last for just a few minutes Recalls getting a stress test done a few years ago that came out normal Patient thinks that these are mostly due to her anxiety and are not cardiac in origin No nausea/vomiting, no abdominal pain No change in bowel habits noted - still has chronic constipation due to her Suboxone Rx but states that her current meds help keep her bowel movements regulated fairly well Denies any acute urinary symptoms Needs her Atorvastatin Rx refilled Had her follow up labs done a couple of weeks ago - to discuss her results She has never had a screening colonoscopy done before Had her annual mammogram done at [facility] about 3 weeks ago Has not had a pap smear done in years - states that she had a total/complete hysterectomy done back in 2002 and was advised back then that she does not need to go for yearly pap smears any longer [facility] Medical History History of opioid abuse Primary insomnia Pure hypercholesterolemia Smoker Surgical History History of cardiac catheterization History of microdiscectomy History of removal of cyst History of shoulder surgery S/P YU-BSO (total abdominal hysterectomy and bilateral salpingo-oophorectomy) (~2002) Family History Father Vascular disease Myocardial infarction Mother COPD (chronic obstructive pulmonary disease) Lung cancer Brother Myocardial infarction Sister Stroke Paternal Grandmother Stroke Other Substance abuse Social History Housing: Apartment Alcohol intake: former Patient Tobacco Use Status: Current everyday Tobacco user Cigarettes Per Day: 10 e-Cigarette/Vaping Use: Never Used Second Hand Smoke Exposure: Yes service: No Current occupational status: employed Cognitive needs: No Hearing needs: Yes (Left ear hearing loss per pt) Vision needs: Yes Questionnaire PHQ-9 Over the last 2 weeks, how often have you been bothered by any of the following problems? 1. Little interest or pleasure in doing things: not at all 2. Feeling down, depressed, or hopeless: not at all 3. Trouble falling or staying asleep, or sleeping too much: not at all 4. Feeling tired or having little energy: not at all 5. Poor appetite or overeating: not at all 6. Feeling bad about yourself - or that you are a failure or have let yourself or your family down: not at all 7. Trouble concentrating on things, such as reading the newspaper or watching television: not at all 8. Moving or speaking so slowly that other people could have noticed. Or the opposite - being so fidgety or restless that you have been moving around a lot more than usual: not at all 9. Thoughts that you would be better off or of hurting yourself in some way: not at all Total score: 0 Depression Screening Interpretation: Negative 70806 - PHQ-9 Billing: Yes Source: Developed by Drs. Jared Lyn, Darby Echeverria, Adam Casiano and colleagues, with an educational tania from [employer]. Thrive Questionnaire Date Thrive assessed: 11/29/22 I am a: Patient What is your living situation today?: I have a steady place to live Within the past 12 months, did the food you bought not last and you didn't have the money to get more?: Never true Within the past 12 months, did you worry whether your food would run out before you got money to buy more?: Never true Do you have trouble paying for medicines?: No Do you have trouble getting transportation to medical appointments?: No Do you have trouble paying your heating and electricity bill?: No Do you have trouble taking care of your child, family member or friend?: No Do you have trouble with day-to-day activities such as bathing, preparing meals, shopping, managing finances, etc.?: No Are you currently unemployed and looking for a job?: No Are you interested in more education?: No Please select the resources that you would like help with: None Currently or been in a relationship where the following occur: no concerns reported AUDIT C Alcohol Use Questionnaire (AUDIT-C) 1. How often do you have a drink containing alcohol?: Never 3. How often do you have six or more drinks on one occasion?: Never Total Score: 0 Score Reviewed/Action Taken: Yes ALEN-7 AMB Questionnaire ALEN-7 Date ALEN - 7 assessed: 11/29/22 Feeling nervous, anxious, or on edge: 3 = Nearly every day Not being able to stop or control worryin = Not at all Worrying too much about different things: 0 = Not at all Trouble relaxin = More than half the days Being so restless that it is hard to sit still: 3 = Nearly every day Becoming easily annoyed or irritable: 0 = Not at all Feeling afraid as if something awful might happen: 0 = Not at all Total ALEN-7 score (0-4 normal; 5-9 mild; 10-14 moderate; 15-21 severe): 8 Source: Developed by Darby Bennett Kurt Kroenke and colleagues, with an educational tania from [employer]. ALEN-7 Assessment Billing ALEN-7 Assessment Tool: ALEN-7 Assessment 97063 Review of Systems Const Denies chills, Denies fatigue, Denies fever(s), Denies headache(s) and Denies malaise Eyes Denies blurry vision, Denies change in vision, Denies irritation and Denies itchy eyes ENT Denies dysphagia, Denies dizziness, Denies otalgia, Denies headache(s), Denies nasal congestion, Denies neck pain, Denies odynophagia and Denies sore throat Card Reports chest pain (occasional, mild and brief - see HPI), Denies rapid heart rate, Denies irregular heart rhythm, Denies palpitations and Denies dyspnea Resp Denies chest congestion, Denies cough, Denies dyspnea and Denies wheezing GI Denies abdominal pain, Denies bloating, Denies constipation, Denies dysphagia, Denies heartburn, Denies diarrhea, Denies nausea, Denies odynophagia and Denies vomiting Denies hematuria, Denies urinary frequency, Denies dysuria, Denies urinary incontinence and Denies urinary urgency Musc Denies back pain, Denies arthralgias, Denies joint swelling, Denies muscle weakness and Denies neck pain Skin/Breast Denies breast pain, Denies breast mass, Denies change in pigmentation, Denies lesions, Denies rash and Denies unusual bruising Neuro Denies dizziness, Denies headache(s) and Denies paresthesias Psych Reports anxiety and Denies depression Endo Denies fatigue and Denies palpitations Joseluis/Lymph Denies easy bruising Aller/Immun Denies itchy eyes and Denies wheezing Physical exam (Primary Care) Vital Signs: Last Vital Signs Pulse 77 11/29/22 10:32 BP 100/68 11/29/22 10:32 Pulse Ox 96 11/29/22 10:32 Oxygen Delivery Method Room Air 11/29/22 10:32 BMI result Body Mass Index 19.4 Tobacco/Smoking Status: Tobacco use Status Tobacco use date assessed 11/29/22 11/29/22 10:42 Patient Tobacco Use Status Current everyday Tobacco 11/29/22 10:42 e-Cigarette/Vaping Use Never Used 11/29/22 10:42 PHQ-9: PHQ-9 Score PHQ-9: Total score 0 11/29/22 11:13 Depression Screening Interpretation: Negative Thrive Assessment: Date of Thrive Assessment Date Thrive assessed 11/29/22 11/29/22 10:42 Currently or been in a relationship where the following occur: no concerns reported Const General: no acute distress, alert and awake Orientation/consciousness: patient oriented x3 [facility] Head: Yes normocephalic and Yes atraumatic Ears: external ears normal, TM's normal bilaterally and EAC's normal General nose exam: No nasal discharge present Face and sinus: Yes normal facial exam and Yes sinuses nontender Teeth and gingiva: dentition normal Throat: Yes posterior oropharynx normal and Yes tonsils normal (no TP congestion) Eyes Eyelids: Yes eyelids normal Conjunctivae: conjunctivae normal Pupils: Equal, round and reactive pupils present EOM: EOMs intact bilaterally Neck Neck: Yes no lymphadenopathy and Yes supple Thyroid: Thyroid normal Resp Auscultation: clear to auscultation bilaterally, no rales and no wheezes Cardio Rate: regular rate Rhythm: regular rhythm Heart sounds: no murmurs GI Palpation (GI): Soft to palpation, nontender and No hepatosplenomegaly present Auscultation: normal bowel sounds General: Yes no CVA tenderness Back/Spine/Pelvis Back: no CVA tenderness Thoracic/Lumbar Spine: thoracic and lumbar spine normal to inspection Skin Lesions: no lesions Rashes: no rashes Neuro General: patient oriented x3, moves all extremities, no focal motor deficits and CN's II-XI intact bilaterally Cranial nerves: Yes Equal, round and reactive pupils present Cognition (Neuro): normal cognition Gait exam (Neuro): Normal gait present Extrem General: Yes no clubbing, cyanosis or edema Results Reviewed Results Reviewed: Laboratory Tests 11/18/22 11/18/22 11/18/22 07:12 07:16 07:16 WBC 6.9 Hgb 12.8 Hct 38.6 Plt Count 191 Sodium 141 Potassium 4.0 Creatinine 0.67 Estimated GFR > 60 Fasting Glucose 87 Calcium 10.1 AST 25 ALT 21 Triglycerides 94 Cholesterol 162 LDL Cholesterol, Calc 87 HDL Cholesterol 57 25-OH Vitamin D Total 63.3 TSH 4.02 H Free T4 1.01 Ur Specific [place] 1.015 Urine Protein Negative Urine Glucose (UA) Negative Urine Blood Negative Assessment and Plan Assessment & Plan (1) Annual physical exam: Code(s): Z00.00 - Encounter for general adult medical examination without abnormal findings Plan: Results of her labs done a couple of weeks ago reviewed and discussed with patient She is up-to-date with her annual mammogram; 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 as she is S/P YU-BSO in 2002 (2) Pure hypercholesterolemia: Code(s): E78.00 - Pure hypercholesterolemia, unspecified Plan: Reinforced low cholesterol diet - her fasting lipids are at goal on her recent labs Continue Atorvastatin 80 mg QD Will recheck her labs in 4 months for follow up (3) Osteopenia: Comment: S/P YU-BSO at 27 y/o Code(s): M85.80 - Other specified disorders of bone density and structure, unspecified site Qualifiers: Osteopenia location: unspecified Qualified Code(s): M85.80 - Other specified disorders of bone density and structure, unspecified site Plan: BMD done in September 2021 revealed (+) osteopenia Continue daily calcium and Vitamin D supplements and low-impact exercises daily to help slow down the decline of her bone density Will continue to monitor BMD regularly and repeat it in 2 years; if her BMD continues to decline, will need to consider starting on Rx (4) History of opioid abuse: Code(s): F11.11 - Opioid abuse, in remission Plan: Continue Suboxone 8-2 mg 10 mg? sublingually once a day Follow-up with the Suboxone clinic as scheduled (5) Constipation: Code(s): K59.00 - Constipation, unspecified Qualifiers: Constipation type: drug induced constipation Qualified Code(s): K59.03 - Drug induced constipation Plan: Most likely related to her Suboxone Tx Is again encouraged to increase her oral fluids and dietary fiber Continue OTC Senna PRN and Miralax 17 gm QD (6) Primary insomnia: Code(s): F51.01 - Primary insomnia Plan: Sleep hygiene reinforced (7) Smoker: Code(s): F17.200 - Nicotine dependence, unspecified, uncomplicated Plan: Counseled again on smoking cessation (8) Colon cancer screening: Code(s): Z12.11 - Encounter for screening for malignant neoplasm of colon Plan: Will refer patient to GI for her initial screening colonoscopy Plan Follow up in 4 months Orders: Orders Comprehensive [place]. Panel Fast 4 Months E78.00 - Pure hypercholesterolemia, unspecified Lipid Panel 4 Months E78.00 - Pure hypercholesterolemia, unspecified Complete Blood Count Auto Diff 4 Months I10 - Essential (primary) hypertension UA CC w/rflx Micro + Cult 4 Months R30.0 - Dysuria Referrals Gastroenterology Referral Z12.11 - Encounter for screening for malignant neoplasm of colon Medications: Refilled atorvastatin 80 mg PO BEDTIME 90 days 90 tabs 1RF Coding Level of Care Code Est Pt Prev Care 40-64y(27555) Diagnoses Annual physical exam Z00.00 Pure hypercholesterolemia E78.00 Osteopenia M85.80 Osteopenia location: unspecified History of opioid abuse F11.11 Constipation K59.03 Constipation type: drug induced constipation Primary insomnia F51.01 Smoker F17.200 Colon cancer screening Z12.11 Additional Codes ALEN-7 Assessment Billing - ALEN-7 Assessment Tool: ALEN-7 Assessment [id number] ([id number])
[2022-11-29 10:32] VITALS: BP 100/68; PULSE 77; O2SAT 96; BMI 19.4
== END 2022-11-29 11:17 | disposition home or self-care (01) ==
PROVIDERS: PCP Internal Medicine; Visit Provider Internal Medicine
DX: Z00.00 Encounter for general adult medical examination without abnormal findings (principal); E78.00 Pure hypercholesterolemia, unspecified; F11.11 Opioid abuse, in remission; F17.210 Nicotine dependence, cigarettes, uncomplicated; M85.80 Other specified disorders of bone density and structure, unspecified site; K59.03 Drug induced constipation; F51.01 Primary insomnia
CPT/HCPCS: 99396

== ENCOUNTER 2023-04-01 07:05 | Outpatient (REF) | payer BC, SELFPAY ==
[2023-04-01 07:32] LABS: MANUAL DIFF FLAG NO
[2023-04-01 08:11] LABS: Basophils Absolute Auto 0.1 X10*3/uL (0.0-0.2); Basophils Percent Auto 1.1 % (0-2); Eosinophils Absolute Auto 0.2 X10*3/uL (0.0-0.4); Eosinophils Percent Auto 2.9 % (0-4); Hematocrit 36.5 % (37.0-47.0); Hemoglobin 12.4 g/dl (12.0-16.0); Imm Gran Abs Auto 0.01 X10*3/uL (0.00-0.03); Imm Gran Pct Auto 0.2 % (0.0-0.4); Lymphocytes Absolute Auto 2.5 X10*3/uL (1.2-4.9); Lymphocytes Percent Auto 40.1 % (20-40); Mean Corpuscular Hemoglobin 31.2 pg (27.0-33.0); Mean Corpuscular Volume 91.9 fL (80.0-98.0); Mean Platelet Volume 11.9 fL (9.4-12.3); Monocytes Absolute Auto 0.3 X10*3/uL (0.1-1.2); Monocytes Percent Auto 5.2 % (2-11); Neutrophils Absolute Auto 3.1 x10*3/uL (2.0-8.3); Neutrophils Percent Auto 50.5 % (45-73); Platelet Count 151 X10*3/uL (160-400); Red Blood Count 3.97 X10*6/uL (4.20-5.50); White Blood Count 6.2 X10*3/uL (4.8-10.8)
[2023-04-01 08:27] LABS: Alanine Aminotransferase 27 U/L (0-31); Albumin Level 4.4 g/dL (3.5-5.0); Alkaline Phosphatase 64 U/L (39-117); Anion Gap 13 (12-20); Aspartate Amino Transferase 32 U/L (5-31); Bilirubin Total 0.3 mg/dL (0.0-1.0); Blood Urea Nitrogen 16 mg/dL (9-16); Calcium 9.9 mg/dL (8.4-10.2); Carbon Dioxide 26 mmol/L (22-29); Chloride 106 mmol/L (96-108); Cholesterol 162 mg/dL (<200); Estimated Glomerular Filt Rate > 60; Glucose Fasting 97 mg/dL (60-99); HDL Cholesterol 55 mg/dL (>40); LDL Cholesterol Calculated 94 mg/dL (<100); Potassium 4.4 mmol/L (3.3-5.1); Sodium 141 mmol/L (135-145); Total Protein 7.3 g/dL (6.5-8.0); Triglycerides 66 mg/dL (<150)
[2023-04-01 08:59] LABS: Appearance Urine Clear; Color Urine Yellow; Glucose Urine UA Negative (Negative); Leukocyte Esterase Urine Small (1+) (Negative); Nitrite Urine Negative (Negative); UMIC TRIGGER UACC YES; Urine Blood Negative (Negative); Urine Ketones Negative (Negative); Urine Protein Negative (Neg-Trace)
[2023-04-01 09:04] LABS: Bacteria Urine Trace (None Seen); Hyaline Casts Urine 0-2 /LPF (0-2); RBC Urine 0-2 /HPF (0-2); UACC Culture Trigger YES
== END 2023-04-01 07:06 | disposition home or self-care (01) ==
LOC: HO.LAB 07:05
PROVIDERS: PCP Internal Medicine; Visit Provider Internal Medicine
DX: E78.00 Pure hypercholesterolemia, unspecified (principal); I10 Essential (primary) hypertension; R30.0 Dysuria
CPT/HCPCS: 36415; 80053; 80061; 81001; 81003; 85025; 87086

== ENCOUNTER 2023-04-05 09:46 | Outpatient (AMB) | payer BC, SELFPAY ==
[2023-04-05 09:48] VITALS: BP 102/68; PULSE 78; O2SAT 96; BMI 19.4
--- NOTE | 2023-04-05 09:48 | MHC.PC.OV ---
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 Can take 1 additional dose after 15 to 20 minutes if needed; for anxiety with flying 7 days polyethylene glycol 3350 (Miralax) 17 grams PO DAILY 30 days sennosides (senna) 8.6 mg PO BEDTIME Tobacco use date assessed: 04/05/23 Dental Screening Dental Screen Date: 04/05/23 Did you have a dental visit in the last 12 months?: No Did you have a dental problem in the last 6 months where you did not have access to dental care?: No Was dental information given to patient?: No HPI hyperlipidemia HPI Details Patient comes in today for her follow up visit States that she feels okay She denies any headaches or dizziness Denies any chest pains, no SOB No nausea/vomiting, no abdominal pain No change in bowel habits noted Needs a couple of her Rx refilled Had her follow up labs done a few days ago - to discuss her results [facility] Medical History Smoker Primary insomnia History of opioid abuse Pure hypercholesterolemia Surgical History History of cardiac catheterization History of shoulder surgery History of removal of cyst History of microdiscectomy S/P YU-BSO (total abdominal hysterectomy and bilateral salpingo-oophorectomy) (~2002) Family History Father Vascular disease Myocardial infarction Mother COPD (chronic obstructive pulmonary disease) Lung cancer Brother Myocardial infarction Sister Stroke Paternal Grandmother Stroke Other Substance abuse Social History Housing: Apartment Alcohol intake: former Patient Tobacco Use Status: Current everyday Tobacco user Cigarettes Per Day: 10 e-Cigarette/Vaping Use: Never Used Second Hand Smoke Exposure: Yes service: No Current occupational status: employed Cognitive needs: No Hearing needs: Yes (Left ear hearing loss per pt) Vision needs: Yes Questionnaire PHQ-9 Over the last 2 weeks, how often have you been bothered by any of the following problems? 1. Little interest or pleasure in doing things: not at all 2. Feeling down, depressed, or hopeless: not at all 3. Trouble falling or staying asleep, or sleeping too much: not at all 4. Feeling tired or having little energy: not at all 5. Poor appetite or overeating: not at all 6. Feeling bad about yourself - or that you are a failure or have let yourself or your family down: not at all 7. Trouble concentrating on things, such as reading the newspaper or watching television: not at all 8. Moving or speaking so slowly that other people could have noticed. Or the opposite - being so fidgety or restless that you have been moving around a lot more than usual: not at all 9. Thoughts that you would be better off or of hurting yourself in some way: not at all Total score: 0 Depression Screening Interpretation: Negative Depression Screening Done: Yes 77428 - PHQ-9 Billing: Yes Source: Developed by Drs. Jared Lyn, Darby Echeverria, Adam Casiano and colleagues, with an educational tania from [employer]. Thrive Questionnaire Date Thrive assessed: 04/05/23 I am a: Patient What is your living situation today?: I have a steady place to live Within the past 12 months, did the food you bought not last and you didn't have the money to get more?: Never true Within the past 12 months, did you worry whether your food would run out before you got money to buy more?: Never true Do you have trouble paying for medicines?: No Do you have trouble getting transportation to medical appointments?: No Do you have trouble paying your heating and electricity bill?: No Do you have trouble taking care of your child, family member or friend?: No Do you have trouble with day-to-day activities such as bathing, preparing meals, shopping, managing finances, etc.?: No Are you currently unemployed and looking for a job?: No Are you interested in more education?: No Please select the resources that you would like help with: None Currently or been in a relationship where the following occur: no concerns reported AUDIT C Alcohol Use Questionnaire (AUDIT-C) 1. How often do you have a drink containing alcohol?: Never 3. How often do you have six or more drinks on one occasion?: Never Total Score: 0 Score Reviewed/Action Taken: Yes ALEN-7 AMB Questionnaire ALEN-7 Date ALEN - 7 assessed: 04/05/23 Feeling nervous, anxious, or on edge: 3 = Nearly every day Not being able to stop or control worryin = Not at all Worrying too much about different things: 0 = Not at all Trouble relaxin = More than half the days Being so restless that it is hard to sit still: 3 = Nearly every day Becoming easily annoyed or irritable: 0 = Not at all Feeling afraid as if something awful might happen: 0 = Not at all Total ALEN-7 score (0-4 normal; 5-9 mild; 10-14 moderate; 15-21 severe): 8 Source: Developed by Drs. Jared Lyn, Darby Echeverria, Adam Casiano and colleagues, with an educational tania from [employer]. ALEN-7 Assessment Billing ALEN-7 Assessment Tool: ALEN-7 Assessment 57510 Review of Systems Const Denies chills, Reports fatigue, Denies fever(s) and Denies headache(s) ENT Denies dysphagia, Denies dizziness, Denies otalgia, Denies headache(s), Denies odynophagia, Denies sinus pain and Denies sore throat Card Denies chest pain, Denies palpitations and Denies dyspnea Resp Denies chest congestion, Denies cough and Denies dyspnea GI Denies abdominal pain, Denies constipation, Denies dysphagia, Denies heartburn, Denies diarrhea, Denies nausea, Denies odynophagia and Denies vomiting Denies difficulty voiding, Denies nocturia, Denies dysuria and Denies urinary urgency Musc Denies back pain and Denies arthralgias Skin/Breast Denies rash Neuro Denies dizziness and Denies headache(s) Endo Reports fatigue and Denies palpitations Physical exam (Primary Care) Vital Signs: Last Vital Signs Pulse 78 04/05/23 09:48 BP 102/68 04/05/23 09:48 Pulse Ox 96 04/05/23 09:48 Oxygen Delivery Method Room Air 04/05/23 09:48 BMI result Body Mass Index 19.4 Tobacco/Smoking Status: Tobacco use Status Tobacco use date assessed 04/05/23 04/05/23 09:54 Patient Tobacco Use Status Current everyday Tobacco 04/05/23 09:54 e-Cigarette/Vaping Use Never Used 04/05/23 09:54 PHQ-9: PHQ-9 Score PHQ-9: Total score 0 04/05/23 09:54 Depression Screening Interpretation: Negative Thrive Assessment: Date of Thrive Assessment Date Thrive assessed 04/05/23 04/05/23 09:54 Currently or been in a relationship where the following occur: no concerns reported Const General: no acute distress and alert HENMT Ears: TM's normal bilaterally and EAC's normal Throat: Yes posterior oropharynx normal and Yes tonsils normal (no TP congestion) Neck Neck: Yes no lymphadenopathy and Yes supple Thyroid: Thyroid normal Resp Auscultation: clear to auscultation bilaterally, no rales and no wheezes Cardio Rate: regular rate Rhythm: regular rhythm Heart sounds: no murmurs GI Palpation (GI): Soft to palpation and nontender Auscultation: normal bowel sounds Extrem General: Yes no clubbing, cyanosis or edema Results Reviewed Results Reviewed: Laboratory Tests 04/01/23 04/01/23 07:20 07:32 WBC 6.2 Hgb 12.4 Hct 36.5 L Plt Count 151 L Sodium 141 Potassium 4.4 Creatinine 0.72 Estimated GFR > 60 Fasting Glucose 97 Calcium 9.9 AST 32 H ALT 27 Triglycerides 66 Cholesterol 162 LDL Cholesterol, Calc 94 HDL Cholesterol 55 Ur Specific [place] 1.020 Urine Protein Negative Urine Glucose (UA) Negative Urine Blood Negative Assessment and Plan Assessment & Plan (1) Pure hypercholesterolemia: Code(s): E78.00 - Pure hypercholesterolemia, unspecified Plan: Results of her labs done a few days ago reviewed and discussed with patient - her fasting lipids remain at goal on her labs Reinforced low cholesterol diet Continue Atorvastatin 80 mg QD - Rx refilled Will recheck her labs and fasting lipids in 4 months for follow up (2) Osteopenia: Comment: S/P YU-BSO at 27 y/o Code(s): M85.80 - Other specified disorders of bone density and structure, unspecified site Qualifiers: Osteopenia location: unspecified Qualified Code(s): M85.80 - Other specified disorders of bone density and structure, unspecified site Plan: BMD done in September 2021 revealed (+) osteopenia Continue daily Calcium and Vitamin D supplements (Rx sent) and low-impact exercises daily to help slow down her BMD decline Will continue to monitor BMD regularly and repeat it in 2 years (September 2023) - discussed again that if her BMD continues to decline, will need to consider starting her on Rx - options include oral bisphosphonates (Alendronate) (3) History of opioid abuse: Code(s): F11.11 - Opioid abuse, in remission Plan: Continue Suboxone 8-2 mg 10 mg? sublingually once a day Follow-up with the Suboxone clinic as scheduled (4) Constipation: Code(s): K59.00 - Constipation, unspecified Qualifiers: Constipation type: drug induced constipation Qualified Code(s): K59.03 - Drug induced constipation Plan: Is most likely related to her Suboxone Tx Is again encouraged to increase her oral fluids and dietary fiber Continue OTC Senna PRN and Miralax 17 gm QD (5) Primary insomnia: Code(s): F51.01 - Primary insomnia Plan: Sleep hygiene reinforced (6) Smoker: Code(s): F17.200 - Nicotine dependence, unspecified, uncomplicated Plan: Counseled again on smoking cessation Plan Follow up in 4 months Orders: Orders TSH reflex Free T4 4 Months E78.00 - Pure hypercholesterolemia, unspecified Vitamin D 25-OH Total 4 Months E55.9 - Vitamin D deficiency, unspecified Comprehensive [place]. Panel Fast 4 Months E78.00 - Pure hypercholesterolemia, unspecified Lipid Panel 4 Months E78.00 - Pure hypercholesterolemia, unspecified Complete Blood Count Auto Diff 4 Months K59.00 - Constipation, unspecified Medications: New calcium carbonate-vitamin D3 600 mg-5 mcg (200 unit) (Liquid Calcium with Vitamin D) 2 caps PO .QD 180 caps 3RF 90 days Refilled atorvastatin 80 mg PO BEDTIME 90 tabs 1RF 90 days Coding Level of Care Code Est Pt Level 4 (17117) Diagnoses Pure hypercholesterolemia E78.00 Osteopenia, unspecified location M85.80 Osteopenia location: unspecified History of opioid abuse F11.11 Drug-induced constipation K59.03 Constipation type: drug induced constipation Primary insomnia F51.01 Smoker F17.200 Additional Codes ALEN-7 Assessment Billing - ALEN-7 Assessment Tool: ALEN-7 Assessment 95593 ([id number])
== END 2023-04-05 10:31 | disposition home or self-care (01) ==
PROVIDERS: PCP Internal Medicine; Visit Provider Internal Medicine
DX: E78.00 Pure hypercholesterolemia, unspecified (principal); M85.80 Other specified disorders of bone density and structure, unspecified site; F11.11 Opioid abuse, in remission; K59.03 Drug induced constipation; F51.01 Primary insomnia; F17.200 Nicotine dependence, unspecified, uncomplicated
CPT/HCPCS: 99214

== ENCOUNTER 2023-04-19 08:21 | Outpatient (AMB) | payer BC, SELFPAY ==
[2023-04-19 09:09] VITALS: BP 108/70; PULSE 70; TEMP 36.7; O2SAT 97; BMI 19.3
--- NOTE | 2023-04-19 09:09 | MHC.OFFWIV ---
Intake Vital Signs 04/19/23 09:09 Height 5 ft 5 in Weight 116 lb BMI 19.3 BP 108/70 Blood Pressure Location Rt brachial Position Sitting Pulse 70 Pulse Source Pulse Oximeter Temp 98.1 F Temp Source Oral Pulse Oximetry (%) 97 Oxygen Delivery Method Room Air Intake Visit Reasons: EP RT side face neck pain Intake Note: pt is here today for rt side face and neck started Patient Tobacco Use Status: Current everyday Tobacco user Allergies penicillin V Adverse Reaction (Unknown, Verified 04/19/23 09:10) Vomiting, diarrhea, Vommiting, diarrhea Penicillins [PENICILLINS] Adverse Reaction (Unknown, Verified 04/19/23 09:10) VOMITING, DIARRHEA, SWEATING Do you need a note to return to daycare/school/sports/work: Yes HPI EP RT side face neck pain HPI Details This is a 47 year old female patient who presents today with right sided jaw pain. She states this has been present on and off over the last few months, however has been persistent the last 3 days. She reports pain with chewing and soreness over right lower jaw. Denies any pain inside the mouth. Denies any fever or chills. Has been using Tylenol/Motrin with some minor relief. Reports that right side of jaw was somewhat swollen yesterday, however this has gone down. [facility] Medical History Smoker Primary insomnia History of opioid abuse Pure hypercholesterolemia Surgical History History of cardiac catheterization History of shoulder surgery History of removal of cyst History of microdiscectomy S/P YU-BSO (total abdominal hysterectomy and bilateral salpingo-oophorectomy) (~2002) Family History Father Vascular disease Myocardial infarction Mother COPD (chronic obstructive pulmonary disease) Lung cancer Brother Myocardial infarction Sister Stroke Paternal Grandmother Stroke Other Substance abuse Social History Housing: Apartment Alcohol intake: former Patient Tobacco Use Status: Current everyday Tobacco user Cigarettes Per Day: 10 e-Cigarette/Vaping Use: Never Used Second Hand Smoke Exposure: Yes service: No Current occupational status: employed Cognitive needs: No Hearing needs: Yes (Left ear hearing loss per pt) Vision needs: Yes Review of Systems Const All systems reviewed & are unremarkable except as noted in HPI and below Physical Exam Vital Signs: Last Vital Signs Temp 98.1 F 04/19/23 09:09 Pulse 70 04/19/23 09:09 BP 108/70 04/19/23 09:09 Pulse Ox 97 04/19/23 09:09 Oxygen Delivery Method Room Air 04/19/23 09:09 BMI result Body Mass Index 19.3 Const General: cooperative and no acute distress Nutritional Appearance: average body habitus HEENT Head: Yes normal to inspection Ears: hearing grossly normal bilaterally, external ears normal and TM's normal bilaterally General nose exam: Normal external nose present and Normal nasal mucous membranes and turbinates present Face and sinus: Yes face symmetric and Yes Facial tenderness on exam of face and sinuses (ttp right parotid area) Mouth: Normal oral and palatal mucosa present and moist mucous membranes Throat: Yes posterior oropharynx normal Neck Neck: Yes no lymphadenopathy Resp Effort & Inspection: normal respiratory effort Auscultation: clear to auscultation bilaterally Cardio Palpation: normal PMI Rate: regular rate Rhythm: regular rhythm Skin General skin exam: no rashes or lesions noted Extrem General: Yes capillary refill normal and Yes no clubbing, cyanosis or edema Psych Appearance: grossly normal Mental Status: mental status grossly normal Speech and movement: Normal speech and movement present Assessment & Plan Assessment & Plan (1) Acute parotitis: Code(s): K11.21 - Acute sialoadenitis Plan: Will treat empirically for parotitis. PCN/Amox allergy. No visible or palpable abscess on exam, however patient has tenderness and reported swelling over right parotid area. Advised warm compresses, and may continue to take Tylenol/Motrin prn pain. If she does not improve with treatment she should return to the clinic or dentist for further evaluation. She agrees to plan. Medications: New clindamycin HCl 300 mg PO Q8H 21 caps 0RF 7 days K11.21 - Acute sialoadenitis Coding Level of Care Code Est Pt Level 3 (93832) Diagnoses Acute parotitis K11.21
== END 2023-04-19 09:59 | disposition home or self-care (01) ==
PROVIDERS: PCP Internal Medicine; Visit Provider Nurse Practitioner Family
DX: K11.21 Acute sialoadenitis (principal)
CPT/HCPCS: 99213

== ENCOUNTER 2023-07-28 07:47 | Outpatient (REF) | payer BC, SELFPAY ==
[2023-07-28 07:58] LABS: MANUAL DIFF FLAG NO
[2023-07-28 08:23] LABS: Basophils Absolute Auto 0.1 X10*3/uL (0.0-0.2); Basophils Percent Auto 0.9 % (0-2); Eosinophils Absolute Auto 0.2 X10*3/uL (0.0-0.4); Eosinophils Percent Auto 2.3 % (0-4); Hematocrit 36.6 % (37.0-47.0); Hemoglobin 12.2 g/dl (12.0-16.0); Imm Gran Abs Auto 0.01 X10*3/uL (0.00-0.03); Imm Gran Pct Auto 0.2 % (0.0-0.4); Lymphocytes Absolute Auto 3.3 X10*3/uL (1.2-4.9); Lymphocytes Percent Auto 51.1 % (20-40); Mean Corpuscular HGB Conc 33.3 g/dl (31.0-35.0); Mean Corpuscular Hemoglobin 30.6 pg (27.0-33.0); Mean Corpuscular Volume 91.7 fL (80.0-98.0); Mean Platelet Volume 10.5 fL (9.4-12.3); Monocytes Absolute Auto 0.3 X10*3/uL (0.1-1.2); Monocytes Percent Auto 5.2 % (2-11); Neutrophils Absolute Auto 2.6 x10*3/uL (2.0-8.3); Neutrophils Percent Auto 40.3 % (45-73); Platelet Count 205 X10*3/uL (160-400); Red Blood Count 3.99 X10*6/uL (4.20-5.50); Red Cell Distribution Width 14.2 % (11.0-16.0); White Blood Count 6.5 X10*3/uL (4.8-10.8)
[2023-07-28 09:34] LABS: Alanine Aminotransferase 20 U/L (0-31); Alkaline Phosphatase 55 U/L (39-117); Anion Gap 12 (12-20); Aspartate Amino Transferase 23 U/L (5-31); Bilirubin Total 0.3 mg/dL (0.0-1.0); Blood Urea Nitrogen 14 mg/dL (9-16); Calcium 9.7 mg/dL (8.4-10.2); Carbon Dioxide 26 mmol/L (22-29); Chloride 108 mmol/L (96-108); Cholesterol 158 mg/dL (<200); Estimated Glomerular Filt Rate > 60; Glucose Fasting 84 mg/dL (60-99); HDL Cholesterol 52 mg/dL (>40); LDL Cholesterol Calculated 87 mg/dL (<100); Potassium 4.6 mmol/L (3.3-5.1); Sodium 141 mmol/L (135-145); Total Protein 6.9 g/dL (6.5-8.0); Triglycerides 97 mg/dL (<150)
[2023-07-28 09:45] LABS: Appearance Urine Clear; Color Urine Yellow; Glucose Urine UA Negative (Negative); Leukocyte Esterase Urine Trace (Negative); Nitrite Urine Negative (Negative); Specific Gravity - Urine 1.015 (1.005-1.025); UMIC TRIGGER UACC YES; Urine Blood Negative (Negative); Urine Ketones Negative (Negative); Urine Protein Negative (Neg-Trace)
[2023-07-28 09:47] LABS: Bacteria Urine None Seen (None Seen); Hyaline Casts Urine 0-2 /LPF (0-2); RBC Urine 0-2 /HPF (0-2); Squamous Epithelial Cell Urine 0-2 /HPF (0-2); UACC Culture Trigger YES
[2023-07-28 10:11] LABS: TSH reflex Free T4 3.59 uIU/mL (0.32-4.0); Vitamin D 25-OH Total 50.4 ng/mL (>30)
== END 2023-07-28 07:48 | disposition home or self-care (01) ==
LOC: HO.LAB 07:47
PROVIDERS: PCP Internal Medicine; Visit Provider Internal Medicine
DX: E78.00 Pure hypercholesterolemia, unspecified (principal); E55.9 Vitamin D deficiency, unspecified; K59.00 Constipation, unspecified; R30.0 Dysuria
CPT/HCPCS: 36415; 80053; 80061; 81001; 82306; 84443; 85025; 87086

== ENCOUNTER 2023-08-08 14:50 | Outpatient (AMB) | payer BC, SELFPAY ==
[2023-08-08 14:53] VITALS: BP 98/60; PULSE 77; O2SAT 98; BMI 18.8
--- NOTE | 2023-08-08 14:53 | MHC.PC.OV ---
Vital Signs 08/08/23 14:53 Height 5 ft 5 in Weight 113 lb BMI 18.8 BP 98/60 Blood Pressure Location Lt brachial Position Sitting Pulse 77 Pulse Source Pulse Oximeter Pulse Oximetry (%) 98 Oxygen Delivery Method Room Air Intake Visit Reasons: hyperlipidemia Radio Program Checker Required: No Welt Edge Rounder: Not Required per policy Accompanied by: Self / Same As Patient Allergies Penicillins [PENICILLINS] Adverse Reaction (Intermediate, Verified 05/29/24 11:02) vomiting/diarrhea/diaphoresis Medication List - Last Reconciled 08/08/23 by David Frost MD atorvastatin 80 mg PO BEDTIME 90 days buprenorphine-naloxone 8-2 mg 10 mg sublingual DAILY calcium carbonate-vitamin D3 600 mg-5 mcg (200 unit) (Liquid Calcium with Vitamin D) 2 caps PO .QD 90 days clindamycin HCl 300 mg PO Q8H 7 days hydroxyzine HCl Take 1 tablet 20 to 30 minutes before boarding flight/plane. Can take 1 additional dose after 15 to 20 minutes if needed; for anxiety with flying 7 days lorazepam 1 mg PO ONCE polyethylene glycol 3350 (Miralax) 17 grams PO DAILY 30 days sennosides (senna) 8.6 mg PO BEDTIME Tobacco use date assessed: 08/08/23 Dental Screening Dental Screen Date: 08/08/23 Did you have a dental visit in the last 12 months?: Yes Did you have a dental problem in the last 6 months where you did not have access to dental care?: No Was dental information given to patient?: Patient has dentist HPI hyperlipidemia HPI Details Patient comes in today for her follow up visit States that shee feels okay She denies any headaches or dizziness Denies any chest pains, no increased SOB No nausea/vomiting, no abdominal pain No change in bowel habits noted She would like to get some Rx for Ibuprofen that she can take for pain as needed - she was getting these OTC before She had her follow up labs done a couple of weeks ago - to discuss her results [facility] Medical History (Updated 05/29/24 @ 11:05 by David Frost MD) Hx of nephrolithotomy with removal of calculi Seizure Smoker Primary insomnia History of opioid abuse Pure hypercholesterolemia Surgical History H/O adenoidectomy History of cardiac catheterization History of shoulder surgery History of removal of cyst History of microdiscectomy S/P YU-BSO (total abdominal hysterectomy and bilateral salpingo-oophorectomy) (~2002) Family History Father Vascular disease Myocardial infarction Mother COPD (chronic obstructive pulmonary disease) Lung cancer Brother Myocardial infarction Sister Stroke Paternal Grandmother Stroke Other Substance abuse Social History Housing: Apartment Alcohol intake: former Patient Tobacco Use Status: Current everyday Tobacco user Tobacco use type: Cigarette Cigarette Packs Per Day: 0.5 Cigarettes Per Day: 10.0 e-Cigarette/Vaping Use: Never Used Second Hand Smoke Exposure: Yes service: No Current occupational status: employed Cognitive needs: No Hearing needs: Yes (Left ear hearing loss per pt) Vision needs: Yes Questionnaire PHQ-9 Over the last 2 weeks, how often have you been bothered by any of the following problems? 1. Little interest or pleasure in doing things: not at all 2. Feeling down, depressed, or hopeless: not at all 3. Trouble falling or staying asleep, or sleeping too much: not at all 4. Feeling tired or having little energy: not at all 5. Poor appetite or overeating: not at all 6. Feeling bad about yourself - or that you are a failure or have let yourself or your family down: not at all 7. Trouble concentrating on things, such as reading the newspaper or watching television: not at all 8. Moving or speaking so slowly that other people could have noticed. Or the opposite - being so fidgety or restless that you have been moving around a lot more than usual: not at all 9. Thoughts that you would be better off or of hurting yourself in some way: not at all Total score: 0 Depression Screening Interpretation: Negative Depression Screening Done: Yes 16503 - PHQ-9 Billing: Yes Source: Developed by Drs. Jared Lyn, Darby Echeverria, Adam Casiano and colleagues, with an educational tania from [employer]. Thrive Questionnaire Date Thrive assessed: 08/08/23 I am a: Patient What is your living situation today?: I have a steady place to live Within the past 12 months, did the food you bought not last and you didn't have the money to get more?: Never true Within the past 12 months, did you worry whether your food would run out before you got money to buy more?: Never true Do you have trouble paying for medicines?: No Do you have trouble getting transportation to medical appointments?: No Do you have trouble paying your heating and electricity bill?: No Do you have trouble taking care of your child, family member or friend?: No Do you have trouble with day-to-day activities such as bathing, preparing meals, shopping, managing finances, etc.?: No Are you currently unemployed and looking for a job?: No Are you interested in more education?: No Please select the resources that you would like help with: None Currently or been in a relationship where the following occur: no concerns reported THRIVE Score: 0 AUDIT C Alcohol Use Questionnaire (AUDIT-C) 1. How often do you have a drink containing alcohol?: Never 3. How often do you have six or more drinks on one occasion?: Never Total Score: 0 Score Reviewed/Action Taken: Yes ALEN-7 AMB Questionnaire ALEN-7 Date ALEN - 7 assessed: 08/08/23 Feeling nervous, anxious, or on edge: 0 = Not at all Not being able to stop or control worryin = Not at all Worrying too much about different things: 0 = Not at all Trouble relaxin = Not at all Being so restless that it is hard to sit still: 0 = Not at all Becoming easily annoyed or irritable: 0 = Not at all Feeling afraid as if something awful might happen: 0 = Not at all Total ALEN-7 score (0-4 normal; 5-9 mild; 10-14 moderate; 15-21 severe): 0 Source: Developed by Drs. Jared Lyn, Darby Echeverria, Adam Casiano and colleagues, with an educational tania from [employer]. Review of Systems Const Denies chills, Denies fatigue, Denies fever(s) and Denies headache(s) ENT Denies dysphagia, Denies dizziness, Denies otalgia, Denies headache(s), Denies neck pain, Denies odynophagia and Denies sore throat Card Denies chest pain, Denies irregular heart rhythm, Denies palpitations and Denies dyspnea Resp Denies chest congestion, Denies cough and Denies dyspnea GI Denies abdominal pain, Denies constipation, Denies dysphagia, Denies heartburn, Denies diarrhea, Denies nausea, Denies odynophagia and Denies vomiting Denies urinary frequency, Denies dysuria and Denies urinary urgency Musc Denies back pain, Denies arthralgias and Denies neck pain Skin/Breast Denies rash Neuro Denies dizziness, Denies headache(s) and Denies paresthesias Psych Denies anxiety and Denies depression Endo Denies fatigue and Denies palpitations Joseluis/Lymph Denies easy bruising Physical exam (Primary Care) Vital Signs: Last Vital Signs Pulse 77 08/08/23 14:53 BP 98/60 08/08/23 14:53 Pulse Ox 98 08/08/23 14:53 Oxygen Delivery Method Room Air 08/08/23 14:53 BMI result Body Mass Index 18.8 Tobacco/Smoking Status: Tobacco use Status Tobacco use date assessed 08/08/23 08/08/23 14:54 Patient Tobacco Use Status Current everyday Tobacco 08/08/23 14:54 e-Cigarette/Vaping Use Never Used 08/08/23 14:54 PHQ-9: PHQ-9 Score PHQ-9: Total score 0 08/08/23 15:13 Depression Screening Interpretation: Negative Thrive Assessment: Date of Thrive Assessment Date Thrive assessed 08/08/23 08/08/23 14:54 Currently or been in a relationship where the following occur: no concerns reported Const General: no acute distress and alert HENMT Ears: TM's normal bilaterally and EAC's normal Throat: Yes posterior oropharynx normal and Yes tonsils normal (no TP congestion) Neck Neck: Yes supple and No lymphadenopathy Thyroid: Thyroid normal Resp Auscultation: clear to auscultation bilaterally, no rales and no wheezes Cardio Rate: regular rate Rhythm: regular rhythm Heart sounds: no murmurs GI Palpation (GI): Soft to palpation and nontender Auscultation: normal bowel sounds General: Yes no CVA tenderness Back/Spine/Pelvis Back: no CVA tenderness Thoracic/Lumbar Spine: thoracic and lumbar spine normal to inspection Skin Rashes: no rashes Extrem General: Yes no clubbing, cyanosis or edema Results Reviewed Results Reviewed: Laboratory Tests 07/28/23 07/28/23 07:52 07:55 WBC 6.5 Hgb 12.2 Hct 36.6 L Plt Count 205 D Sodium 141 Potassium 4.6 Creatinine 0.71 Estimated GFR > 60 Fasting Glucose 84 Calcium 9.7 AST 23 ALT 20 Triglycerides 97 Cholesterol 158 LDL Cholesterol, Calc 87 HDL Cholesterol 52 25-OH Vitamin D Total 50.4 TSH 3.59 Ur Specific [place] 1.015 Urine Protein Negative Urine Glucose (UA) Negative Urine Blood Negative Urine Nitrite Negative Ur Leukocyte Esterase Trace H Coding Level of Care Code Est Pt Level 4 (98471) Diagnoses Pure hypercholesterolemia E78.00 Osteopenia, unspecified location M85.80 Osteopenia location: unspecified History of opioid abuse F11.11 Drug-induced constipation K59.03 Constipation type: drug induced constipation Primary insomnia F51.01 Smoker F17.200
== END 2023-08-08 15:26 | disposition home or self-care (01) ==
PROVIDERS: PCP Internal Medicine; Visit Provider Internal Medicine
DX: E78.00 Pure hypercholesterolemia, unspecified (principal); M85.80 Other specified disorders of bone density and structure, unspecified site; F11.11 Opioid abuse, in remission; K59.03 Drug induced constipation; F51.01 Primary insomnia; F17.200 Nicotine dependence, unspecified, uncomplicated
CPT/HCPCS: 99214

== ENCOUNTER 2023-10-09 12:35 | Emergency (ER) | payer BC, SELFPAY ==
[2023-10-09 13:36] VITALS: BP 110/54; PULSE 64; RESP 18; TEMP 36.3; O2SAT 98; BMI 18.2
--- NOTE | 2023-10-09 13:42 | ECG_ITS ---
Test Reason : EPIGASTRIC PAIN Blood Pressure : / mmHG Vent. Rate : 052 BPM Atrial Rate : 052 BPM P-R Int : 164 ms QRS Dur : 086 ms QT Int : 448 ms P-R-T Axes : 071 060 045 degrees QTc Int : 416 ms Sinus bradycardia with sinus arrhythmia Otherwise normal ECG When compared with ECG of 07-AUG-2017 11:35, Nonspecific T wave abnormality now evident in Anterior leads Referred By: Generic ED Physician Electronically Signed By:NIDA GOFF MD
[2023-10-09 14:31] LABS: MANUAL DIFF FLAG NO
[2023-10-09 14:32] LABS: Basophils Absolute Auto 0.1 X10*3/uL (0.0-0.2); Basophils Percent Auto 0.6 % (0-2); Eosinophils Absolute Auto 0.1 X10*3/uL (0.0-0.4); Eosinophils Percent Auto 1.2 % (0-4); Hematocrit 34.2 % (37.0-47.0); Hemoglobin 11.7 g/dl (12.0-16.0); Imm Gran Abs Auto 0.02 X10*3/uL (0.00-0.03); Imm Gran Pct Auto 0.2 % (0.0-0.4); Lymphocytes Percent Auto 22.2 % (20-40); Mean Corpuscular HGB Conc 34.2 g/dl (31.0-35.0); Mean Corpuscular Hemoglobin 30.9 pg (27.0-33.0); Mean Corpuscular Volume 90.2 fL (80.0-98.0); Mean Platelet Volume 10.7 fL (9.4-12.3); Monocytes Absolute Auto 0.4 X10*3/uL (0.1-1.2); Monocytes Percent Auto 4.9 % (2-11); Neutrophils Absolute Auto 6.3 x10*3/uL (2.0-8.3); Neutrophils Percent Auto 70.9 % (45-73); Platelet Count 153 X10*3/uL (160-400); Red Blood Count 3.79 X10*6/uL (4.20-5.50); Red Cell Distribution Width 13.5 % (11.0-16.0); White Blood Count 8.9 X10*3/uL (4.8-10.8)
[2023-10-09 14:37] LABS: Appearance Urine Clear; Color Urine Yellow; Glucose Urine UA Negative (Negative); Leukocyte Esterase Urine Moderate (2+) (Negative); Nitrite Urine Negative (Negative); Specific Gravity - Urine <= 1.005 (1.005-1.025); UMIC TRIGGER UACC YES; Urine Blood Negative (Negative); Urine Ketones Negative (Negative); Urine Protein Negative (Neg-Trace)
[2023-10-09 14:42] LABS: Bacteria Urine None Seen (None Seen); Hyaline Casts Urine 0-2 /LPF (0-2); RBC Urine 0-2 /HPF (0-2); Squamous Epithelial Cell Urine 0-2 /HPF (0-2); UACC Culture Trigger YES
[2023-10-09 14:56] LABS: Troponin-I High Sensitivity < 2.7 ng/L (<3.5-17.0)
[2023-10-09 15:01] LABS: Alanine Aminotransferase 20 U/L (0-31); Albumin Level 4.4 g/dL (3.5-5.0); Alkaline Phosphatase 59 U/L (39-117); Anion Gap 13 (12-20); Aspartate Amino Transferase 29 U/L (5-31); Bilirubin Direct 0.1 mg/dL (0.0-0.5); Blood Urea Nitrogen 10 mg/dL (9-16); Carbon Dioxide 27 mmol/L (22-29); Chloride 104 mmol/L (96-108); Creatinine Clr Calc Pharmacy 84.2; Estimated Glomerular Filt Rate > 60; Glucose Random 90 mg/dL (60-115); Lipase 113 U/L (8-78); Potassium 3.6 mmol/L (3.3-5.1); Sodium 140 mmol/L (135-145); Total Protein 7.1 g/dL (6.5-8.0)
[2023-10-09 15:12] LABS: Bilirubin Total 0.3 mg/dL (0.0-1.0)
[2023-10-09 18:51] VITALS: BP 112/56; PULSE 68; RESP 18; TEMP 36.1; O2SAT 97
--- NOTE | 2023-10-09 18:51 | ED_ITS ---
HPI - Abdominal Pain General Chief Complaint: Abdominal Pain Stated Complaint: Trouble/pain swallowing/Vomiting Time Seen by Provider: 10/09/23 21:10 Source: patient Mode of arrival: ambulatory Limitations: no limitations History of Present Illness ED Provider: Dr. Silva HPI narrative: patient presents with epigastric pain N/V since this morning MD elicited complaint: abdominal pain Onset (ago): hour(s) Pain Consistency: now resolved Location: epigastric Related Data Home Medications ?Medication ?Instructions ?Recorded ?Confirmed buprenorphine 8 mg-naloxone 2 mg 10 mg sublingual DAILY 03/06/20 08/08/23 sublingual film sennosides 8.6 mg capsule (senna) 8.6 mg PO BEDTIME 11/29/22 08/08/23 Previous Rx's ?Medication ?Instructions ?Recorded polyethylene glycol 3350 17 17 g PO DAILY 30 days #510 grams 12/23/21 gram/dose oral powder (Miralax) hydroxyzine HCl 25 mg tablet See Rx Instructions .Route 08/10/22 .COMPLEX anxiety 7 days #10 tabs atorvastatin 80 mg tablet 80 mg PO BEDTIME 90 days #90 tabs 04/05/23 calcium carbonate 600 mg-vitamin 2 cap PO .QD 90 days #180 caps 04/05/23 D3 5 mcg (200 unit) capsule (Liquid Calcium with Vitamin D) clindamycin HCl 300 mg capsule 300 mg PO Q8H 7 days #21 caps 04/19/23 lorazepam 1 mg tablet 1 mg PO ONCE anxiety #1 tab 04/28/23 ibuprofen 800 mg tablet 800 mg PO Q8H PRN pain #90 tabs 08/08/23 cephalexin 500 mg capsule 500 mg PO QID #20 caps 10/09/23 ondansetron 4 mg disintegrating 4 mg PO Q8H 4 days #12 tabs 10/09/23 tablet pantoprazole 40 mg tablet,delayed 40 mg PO DAILY #20 tabs 10/09/23 release (Protonix) Allergies Allergy/AdvReac Type Severity Reaction Status Date / Time penicillin V AdvReac Unknown Vomiting, Verified 10/09/23 13:39 diarrhea, Vommiting, diarrhea Penicillins [PENICILLINS] AdvReac Unknown VOMITING, Verified 10/09/23 13:39 DIARRHEA, SWEATING Review of Systems Review of Systems Yes all other systems are reviewed and are negative Denies Sensory deficit (Neuro) PMFSH Past Medical History Medical History Smoker Primary insomnia History of opioid abuse Pure hypercholesterolemia Surgical History History of cardiac catheterization History of shoulder surgery History of removal of cyst History of microdiscectomy S/P YU-BSO (total abdominal hysterectomy and bilateral salpingo-oophorectomy) (~2002) Family History Family History Father Vascular disease Myocardial infarction Mother COPD (chronic obstructive pulmonary disease) Lung cancer Brother Myocardial infarction Sister Stroke Paternal Grandmother Stroke Other Substance abuse Social History Social History Housing: Apartment Alcohol intake: former Patient Tobacco Use Status: Current everyday Tobacco user Cigarettes Per Day: 10 Smoked in Last 30 Days: Yes e-Cigarette/Vaping Use: Never Used Second Hand Smoke Exposure: Yes Use of substances other than those prescribed or required for medical reasons: No Advance Directives: No Advance Directives Information Provided: No Do you have a plan to hurt others: No Plan service: No Current occupational status: employed Cognitive needs: No Hearing needs: Yes (Left ear hearing loss per pt) Vision needs: Yes Physical Exam ED Vital Signs: Vital Signs - 24 hr 10/09/23 13:36 10/09/23 18:51 10/09/23 21:31 Temperature 97.3 F 97.0 F 97.6 F Pulse Rate 64 68 57 Respiratory Rate 18 18 16 Blood Pressure 110/54 L 112/56 L 105/60 Pulse Oximetry 98 97 97 Oxygen Delivery Method Room Air Room Air Room Air BMI result Body Mass Index 18.2 Const Other: Thin female looking older than stated age General: healthy appearing Nutritional Appearance: thin Orientation/consciousness: oriented to person and patient oriented x3 Limitations: no limitations HENMT Head: Yes normal to inspection Ears: external ears normal General nose exam: Normal external nose present Mouth: Normal oral and palatal mucosa present and oropharynx normal Throat: Yes posterior oropharynx normal Eyes General: appearance normal, both eyes and all related structures Neck Neck: Yes normal visual inspection Chest Chest palpation & inspection: normal inspection of the chest Resp Auscultation: clear to auscultation bilaterally Cardio Jugular venous distension: no JVD Rate: regular rate Rhythm: regular rhythm Heart sounds: S1 normal heart sound present and S2 normal heart sound present GI Other: no epigastric pain on palpation Inspection: Yes normal to inspection Palpation (GI): Soft to palpation, nontender and No hepatosplenomegaly present Auscultation: normal bowel sounds General: Yes no CVA tenderness Back/Spine/Pelvis Back: no CVA tenderness Skin General skin exam: no rashes or lesions noted Neuro General: oriented to person and patient oriented x3 Cranial nerves: Yes CN's II-XII intact bilaterally Motor exam (neuro): 5/5 motor strength present throughout Sensory Exam: No Sensory deficit (Neuro) Extrem General: Yes normal to inspection Psych Appearance: grossly normal Course Course Course Narrative: This is a Rapid Medical Exam performed in triage by Marcelle Phillips PA-C. Full HPI, ROS and PE to be performed by primary ED provider. 48 year-old F w/ PMHx HLD, opiate abuse presenting to the ED c/o epigastric abdominal pain since waking this morning w/nausea & vomiting. Denies ETOH use PE: Abdomen soft with epigastric tenderness, no rebound or guarding Plan: Labs notable for elevated lipase and + UTI. CT AP ordered Reevaluation(s) Reevaluation #1: Patient with likely gastritis and UTI will dc Abd CT as patient essentially nontender and lipase is only barely elevated with normal LFTs Time: 21:22 Medical Decision Making Differential Diagnosis Differential Diagnoses: The differential diagnosis associated with the presentation includes (gastritis, hepatitis, pancreatitis, ulcer disease) Admission/Observation Consideration of admission/observation: Escalation of care including admission/observation considered (upon arrival patient considered for admission) Lab Data MDM Lab Attestation statement: I reviewed the patient's lab results. (lipase barely elevated with normal LFTs) 10/09/23 14:26 10/09/23 14:26 Labs: Lab Results 10/09/23 Range/Units 14:26 WBC 8.9 (4.8-10.8) X10*3/uL RBC 3.79 L (4.20-5.50) X10*6/uL Hgb 11.7 L (12.0-16.0) g/dl Hct 34.2 L (37.0-47.0) % MCV 90.2 (80.0-98.0) fL MCH 30.9 (27.0-33.0) pg MCHC 34.2 (31.0-35.0) g/dl RDW 13.5 (11.0-16.0) % Plt Count 153 L D (160-400) X10*3/uL MPV 10.7 (9.4-12.3) fL Immature Gran % (Auto) 0.2 (0.0-0.4) % Neut % (Auto) 70.9 (45-73) % Lymph % (Auto) 22.2 (20-40) % [place] % (Auto) 4.9 (2-11) % Eos % (Auto) 1.2 (0-4) % Baso % (Auto) 0.6 (0-2) % Lymph # (Auto) 2.0 (1.2-4.9) X10*3/uL [place] # (Auto) 0.4 (0.1-1.2) X10*3/uL Eos # (Auto) 0.1 (0.0-0.4) X10*3/uL Baso # (Auto) 0.1 (0.0-0.2) X10*3/uL Abs Immat Gran (auto) 0.02 (0.00-0.03) X10*3/uL Absolute Neuts (auto) 6.3 (2.0-8.3) x10*3/uL Absolute Nucleated RBC 0.000 (0.0-0.012) X10*3/uL Nucleated RBC % (auto) 0.0 (0.0-0.2) /100WBC Sodium 140 (135-145) mmol/L Potassium 3.6 D (3.3-5.1) mmol/L Chloride 104 (96-108) mmol/L Carbon Dioxide 27 (22-29) mmol/L Anion Gap 13 (12-20) BUN 10 (9-16) mg/dL Creatinine 0.68 (0.5-1.4) mg/dL Estim Creat Clear Calc 84.2 Estimated GFR > 60 Random Glucose 90 (60-115) mg/dL Calcium 10.0 (8.4-10.2) mg/dL Magnesium 1.9 (1.6-2.6) mg/dL Total Bilirubin 0.3 (0.0-1.0) mg/dL Direct Bilirubin 0.1 (0.0-0.5) mg/dL AST 29 (5-31) U/L ALT 20 (0-31) U/L Alkaline Phosphatase 59 (39-117) U/L Troponin I High Sens < 2.7 (<3.5-17.0) ng/L Total Protein 7.1 (6.5-8.0) g/dL Albumin 4.4 (3.5-5.0) g/dL Lipase 113 H (8-78) U/L Urine Color Yellow Urine Appearance Clear Urine pH 6.0 (5.0-9.0) Ur Specific [place] <= 1.005 (1.005-1.025) Urine Protein Negative (Neg-Trace) mg/dL Urine Glucose (UA) Negative (Negative) mg/dL Urine Ketones Negative (Negative) mg/dL Urine Blood Negative (Negative) Urine Nitrite Negative (Negative) Ur Leukocyte Esterase Moderate (2+) H (Negative) Urine RBC 0-2 (0-2) /HPF Urine WBC 6-10 H (0-5) /HPF Ur Squamous Epith Cells 0-2 (0-2) /HPF Urine Bacteria None Seen (None Seen) Hyaline Casts 0-2 (0-2) /LPF Independent Interpretation I performed an independent interpretation of an: EKG (sinus [address] or twave changes) Tests considered The following testing was considered but not selected: CT of abd was ordered but patient with no focal findings and normal LFTS so CT cancelled Prescription Management I considered prescription management with: Pain Medication (nontender abdomen will not give narcotics) Social Determinants Patient?s care significantly limited by Social Determinants of Health including: Alcoholism and drug addiction in family Medications Administered Discontinued Medications Generic Name Dose Route Start Last Admin Trade Name Freq PRN Reason Stop Dose Admin Cephalexin HCl 500 mg 10/09/23 21:18 10/09/23 21:34 Cephalexin 500 Mg Capsule PO 10/09/23 21:19 500 mg ONCE ONE Administration Famotidine 20 mg 10/09/23 21:18 10/09/23 21:34 Famotidine 20 Mg Tablet PO 10/09/23 21:19 20 mg ONCE ONE Administration Discharge Plan Discharge Clinical Impression: Gastritis, UTI (urinary tract infection) Patient Disposition: Home, Self-Care Instructions: Urinary Tract Infection in Women (ED) Prescriptions: New pantoprazole [Protonix] 40 mg tablet,delayed release (DR/EC) 40 mg PO DAILY Qty: 20 0RF cephalexin 500 mg capsule 500 mg PO QID Qty: 20 0RF ondansetron 4 mg tablet,disintegrating 4 mg PO Q8H 4 Days Qty: 12 0RF No Action hydroxyzine HCl 25 mg tablet See Rx Instructions .ROUTE .COMPLEX 7 Days Qty: 10 0RF Rx Instructions: Take 1 tablet 20 to 30 minutes before boarding flight/plane. Can take 1 additional dose after 15 to 20 minutes if needed; for anxiety with flying lorazepam 1 mg tablet 1 mg PO ONCE Qty: 1 0RF Rx Instructions: To be taken 30 minutes before upcoming dental procedure/visit, for anxiety buprenorphine-naloxone 8-2 mg film 10 mg sublingual DAILY polyethylene glycol 3350 [Miralax] 17 gram/dose powder 17 g PO DAILY 30 Days Qty: 510 5RF Liquid Calcium with Vitamin D 600 mg-5 mcg (200 unit) capsule 2 cap PO .QD 90 Days Qty: 180 3RF atorvastatin 80 mg tablet 80 mg PO BEDTIME 90 Days Qty: 90 1RF clindamycin HCl 300 mg capsule 300 mg PO Q8H 7 Days Qty: 21 0RF senna 8.6 mg capsule 8.6 mg PO BEDTIME ibuprofen 800 mg tablet 800 mg PO Q8H PRN (Reason: pain) Qty: 90 3RF Print Language: Grenadian
[2023-10-09 19:38] LABS: Magnesium 1.9 mg/dL (1.6-2.6)
[2023-10-09 21:31] VITALS: BP 105/60; PULSE 57; RESP 16; TEMP 36.4; O2SAT 97
[2023-10-09] MEDS: cephALEXin 500 MG CAPSULE PO (21:34)
[2023-10-09] MEDS: Famotidine 20 MG TABLET PO (21:34)
[2023-10-09 21:39] VITALS: BP 105/60; PULSE 57; RESP 16; TEMP 36.4; O2SAT 97
== END 2023-10-09 21:40 | disposition home or self-care (01) ==
PROVIDERS: Physician Assistant; Emergency Provider Emergency Medicine; PCP Internal Medicine
DX: K29.70 Gastritis, unspecified, without bleeding (principal); N39.0 Urinary tract infection, site not specified; R13.10 Dysphagia, unspecified; R00.1 Bradycardia, unspecified; R11.10 Vomiting, unspecified; R11.2 Nausea with vomiting, unspecified; R10.13 Epigastric pain; F17.210 Nicotine dependence, cigarettes, uncomplicated; Z79.899 Other long term (current) drug therapy
CPT/HCPCS: 36415; 80048; 80076; 81001; 83690; 83735; 84484; 85025; 87086; 93005; 99283; 99284

== ENCOUNTER → 2023-10-09 13:42 | Outpatient (BNV) | payer BC, SELFPAY | PROVIDERS: Emergency Provider Emergency Medicine; PCP Internal Medicine; Visit Provider Internal Medicine Cardiovascular Disease | DX: R00.1 Bradycardia, unspecified (principal) | CPT/HCPCS: 93010 ==

== ENCOUNTER 2023-10-27 14:54 | Outpatient (AMB) | payer BC, SELFPAY ==
--- NOTE | 2023-10-27 14:55 | A.OFFPC_ITS ---
Vital Signs 10/27/23 14:56 Height 5 ft 7 in Weight 115 lb 4 oz BMI 18.0 BP 100/66 Blood Pressure Location Lt brachial Position Sitting Pulse 68 Pulse Source Pulse Oximeter Pulse Oximetry (%) 98 Oxygen Delivery Method Room Air Intake Visit Reasons: ER FOLLOW UP Intake Note: Patient is here to follow-up after [place] [facility] [place] Fork Operator Required: No Ophthalmic Pathologist: Not Required per policy Accompanied by: Self / Same As Patient Allergies penicillin V Adverse Reaction (Unknown, Verified 10/27/23 14:56) Vomiting, diarrhea, Vommiting, diarrhea Penicillins [PENICILLINS] Adverse Reaction (Unknown, Verified 10/27/23 14:56) VOMITING, DIARRHEA, SWEATING Tobacco use date assessed: 10/27/23 Dental Screening Dental Screen Date: 08/08/23 HPI HPI Comments History of Present Illness Details 48 y/o female patient who presents to [facility] today for ED Follow. Pt was admitted @ [facility] [place] - ED for Abdominal Pain and vomiting. DOS: 10/09/23 and DOD: Same. Pt today reports feeling well, denies Abd pain, nausea or vomiting. [facility] Medical History Smoker Primary insomnia History of opioid abuse Pure hypercholesterolemia Surgical History History of cardiac catheterization History of shoulder surgery History of removal of cyst History of microdiscectomy S/P YU-BSO (total abdominal hysterectomy and bilateral salpingo-oophorectomy) (~2002) Family History Father Vascular disease Myocardial infarction Mother COPD (chronic obstructive pulmonary disease) Lung cancer Brother Myocardial infarction Sister Stroke Paternal Grandmother Stroke Other Substance abuse Social History Housing: Apartment Alcohol intake: former Patient Tobacco Use Status: Current everyday Tobacco user Tobacco use type: Cigarette Cigarette Packs Per Day: 1 Cigarettes Per Day: 20 e-Cigarette/Vaping Use: Never Used Second Hand Smoke Exposure: Yes service: No Current occupational status: employed Cognitive needs: No Hearing needs: Yes (Left ear hearing loss per pt) Vision needs: Yes Questionnaire Thrive Questionnaire Date Thrive assessed: 08/08/23 ALEN-7 AMB Questionnaire ALEN-7 Date ALEN - 7 assessed: 08/08/23 Source: Developed by Drs. Jared Lyn, Darby Echeverria, Adam Casiano and colleagues, with an educational tania from [employer]. Review of Systems Const All systems reviewed & are unremarkable except as noted in HPI and below Physical exam (Primary Care) Vital Signs: Last Vital Signs Pulse 68 10/27/23 14:56 BP 100/66 10/27/23 14:56 Pulse Ox 98 10/27/23 14:56 Oxygen Delivery Method Room Air 10/27/23 14:56 BMI result Body Mass Index 18.0 Tobacco/Smoking Status: Tobacco use Status Tobacco use date assessed 10/27/23 10/27/23 15:01 Patient Tobacco Use Status Current everyday Tobacco 10/27/23 15:01 Tobacco use type Cigarette 10/27/23 15:01 e-Cigarette/Vaping Use Never Used 10/27/23 15:01 Thrive Assessment: Date of Thrive Assessment Date Thrive assessed 08/08/23 10/27/23 15:01 Const General: comfortable and no acute distress Nutritional Appearance: underweight Orientation/consciousness: patient oriented x3 Resp Effort & Inspection: normal respiratory effort and able to speak in complete sentences Auscultation: clear to auscultation bilaterally, no crackles, no rales, no rhonchi and no wheezes Cardio Heart sounds: S1 normal heart sound present and S2 normal heart sound present GI Inspection: Yes normal to inspection Palpation (GI): Soft to palpation, not firm, nontender, no guarding, not rigid and No hepatosplenomegaly present Neuro General: patient oriented x3, gait normal and moves all extremities Psych Speech and movement: Normal speech and movement present Vital Signs: Last Vital Signs Pulse 68 10/27/23 14:56 BP 100/66 10/27/23 14:56 Pulse Ox 98 10/27/23 14:56 Oxygen Delivery Method Room Air 10/27/23 14:56 BMI result Body Mass Index 18.0 Const General: comfortable and no acute distress Nutritional Appearance: underweight Orientation/consciousness: patient oriented x3 Resp Effort & Inspection: normal respiratory effort and able to speak in complete sentences Auscultation: clear to auscultation bilaterally, no crackles, no rales, no rhonchi and no wheezes Cardio Heart sounds: S1 normal heart sound present and S2 normal heart sound present GI Inspection: Yes normal to inspection Palpation (GI): Soft to palpation, not firm, nontender, no guarding, not rigid and No hepatosplenomegaly present Neuro General: patient oriented x3, gait normal and moves all extremities Psych Speech and movement: Normal speech and movement present Assessment and Plan Assessment & Plan (1) UTI (urinary tract infection): Code(s): N39.0 - Urinary tract infection, site not specified Qualifiers: Urinary tract infection type: acute cystitis Hematuria presence: without hematuria Plan: Completed Oral Abx Denies any Urinary Symptoms today No concerns (2) Gastritis: Code(s): K29.70 - Gastritis, unspecified, without bleeding Qualifiers: Gastritis type: unspecified gastritis Chronicity: acute Gastritis bleeding: without bleeding Plan: Continue on Protonix as directed Denies Nausea or vomiting. Coding Level of Care Code Est Pt Level 4 (86465) Diagnoses UTI (urinary tract infection) N39.0 Urinary tract infection type: acute cystitis Hematuria presence: without hematuria Gastritis K29.70 Gastritis type: unspecified gastritis Chronicity: acute Gastritis bleeding: without bleeding Comment Spent 20 minutes reviewing Hospital notes and Labs.
[2023-10-27 14:56] VITALS: BP 100/66; PULSE 68; O2SAT 98; BMI 18.0
== END 2023-10-27 15:31 | disposition home or self-care (01) ==
PROVIDERS: PCP Internal Medicine; Visit Provider Nurse Practitioner Family
DX: N39.0 Urinary tract infection, site not specified (principal); K29.70 Gastritis, unspecified, without bleeding
CPT/HCPCS: 99214

== ENCOUNTER 2023-11-21 11:55 | Outpatient (REF) | payer BC, SELFPAY | END 2023-11-21 11:56 | disposition home or self-care (01) | LOC: HO.MAMMO 11:55 | PROVIDERS: PCP Internal Medicine; Visit Provider Internal Medicine | DX: Z12.31 Encounter for screening mammogram for malignant neoplasm of breast (principal) | CPT/HCPCS: 77063; 77067 ==

== ENCOUNTER → 2023-11-21 12:00 | Outpatient (BNV) | payer BC, SELFPAY | PROVIDERS: PCP Internal Medicine; Visit Provider Radiology Diagnostic Radiology | DX: Z12.31 Encounter for screening mammogram for malignant neoplasm of breast (principal) | CPT/HCPCS: 77063; 77067 ==

== ENCOUNTER 2023-12-29 08:48 | Outpatient (REF) | payer BC, SELFPAY ==
--- NOTE | ~2023-12-29 | MM_ITS ---
EXAMINATION: BONE DENSITOMETRY CLINICAL INDICATION: Asymptomatic menopausal state. COMPARISON: Previous BD dated 10/05/2021 and baseline BD dated 01/22/2016. TECHNIQUE: Using a [employer] DXA System (software version: 13.1) manufactured by [employer], dual-energy x-ray absorptiometry was performed of the lumbar spine and left hip. The images are of good technical quality. Summary results are attached. FINDINGS: LEFT FEMUR, NECK: Current: BMD 0.791 g/cm2, Z-score -0.9, T-score -1.8, osteopenia. Prior: BMD 0.798 g/cm2. Baseline: BMD 0.918 g/cm2. LEFT FEMUR, TOTAL: Current: BMD 0.713 g/cm2, Z-score -1.7, T-score -2.3, osteopenia, 8.1% decrease from previous, 13.2% decrease from baseline (<5% change is not significant). Prior: BMD 0.776 g/cm2. Baseline: BMD 0.821 g/cm2. AP SPINE L1-L3 (excluding L4): The data of L1-L4 has been changed to exclude the L4 vertebral body, because degenerative sclerosis at this level may cause overestimation of lumbar spine density. Current: BMD 0.851 g/cm2, Z-score -2.1, T-score -2.7, osteoporosis, 7.2% decrease from previous, 11.2% decrease from baseline (<5% change is not significant). Prior: BMD 0.917 g/cm2. Baseline: BMD 0.958 g/cm2. IDENTIFIED RISK FACTORS: Low calcium intake, current smoker. Early menopause, secondary osteoporosis, hysterectomy, bilateral oophorectomy. HISTORY OF FRACTURE: None listed. MEDICATIONS: Calcium/multivitamin. MM/XR DEXA axial skeleton IMPRESSION: 1. DIAGNOSIS: Osteoporosis based on the lowest T-score value of -2.7 in the lumbar spine applying World Health Organization criteria. 2. 10-YEAR FRACTURE RISK PREDICTION, FRAX: According to the guidelines, FRAX calculation should only be performed on patients in the osteopenia bone density category. Therefore, FRAX was not performed on this patient. 3. Treatment Recommendations: NOF guidelines recommend consideration for treatment in postmenopausal women and men age 50 and older presenting with the following: -A hip or vertebral (clinical or morphometric) fracture. -T-score less than or equal to -2.5 at the femoral neck or spine after appropriate evaluation to exclude secondary causes. -Low bone mass at the hip or spine and a 10-year fracture probability by FRAX of greater than or equal to 3% for hip fracture or greater than or equal to 20% for major osteoporotic fracture based on the [place] adapted WHO algorithm. 4. Other Recommendations: All treatment decisions require clinical judgment and consideration of individual patient factors, including patient preferences, comorbidities, previous drug use, risk factors not captured in the FRAX model (e.g. frailty, falls, vitamin D deficiency, increased bone turnover, interval significant decline in bone density) and possible under or overestimation of fracture risk by FRAX. Additional medical evaluation for secondary cause of low bone mineral density may be appropriate. FUTURE SCAN RECOMMENDATION: People with diagnosed cases of osteoporosis or at high risk for fracture should have regular bone mineral density tests. For patients eligible for Medicare, routine testing is allowed once every 2 years. The testing frequency can be increased to one year for patients who have rapidly progressing disease, those who are receiving or discontinuing medical therapy to restore bone mass, or have additional risk factors. Electronically signed by: Amrit Kelley MD 01/02/2024 04:31 PM EDT RP
== END 2023-12-29 08:49 | disposition home or self-care (01) ==
LOC: HO.MAMMO 08:48
PROVIDERS: PCP Internal Medicine; Visit Provider Internal Medicine
DX: Z13.820 Encounter for screening for osteoporosis (principal); M85.80 Other specified disorders of bone density and structure, unspecified site; Z78.0 Asymptomatic menopausal state
CPT/HCPCS: 77080

== ENCOUNTER 2024-01-02 06:32 | Emergency (ER) | payer BC, SELFPAY ==
--- NOTE | 2024-01-02 | ECG_ITS ---
Test Reason : EPIGASTRIC PAIN Blood Pressure : / mmHG Vent. Rate : 070 BPM Atrial Rate : 070 BPM P-R Int : 164 ms QRS Dur : 078 ms QT Int : 404 ms P-R-T Axes : 081 052 051 degrees QTc Int : 436 ms Normal sinus rhythm Normal ECG When compared with ECG of 09-OCT-2023 14:15, No significant change was found Referred By: Generic ED Physician Electronically Signed By:ANYI PETERSON
--- NOTE | ~2024-01-02 | XR_ITS ---
EXAMINATION: XR CHEST CLINICAL INFORMATION: Chest pain COMPARISON: 09/2019, 07/2017 TECHNIQUE: 2 views of the chest were obtained. FINDINGS: No significant abnormality is noted involving the heart, lungs, mediastinum, bony thorax or soft tissues. Partial visualization of right humeral surgical hardware. XR/XR chest 2V IMPRESSION: No acute cardiopulmonary disease. Electronically signed by: María Valero MD 01/02/2024 08:09 AM EDT
--- NOTE | ~2024-01-02 | CT_ITS ---
EXAMINATION: CT ABDOMEN AND PELVIS WITH CONTRAST CLINICAL INFORMATION: Upper abdominal pain, question pancreatitis COMPARISON: 10/22/2015 CT TECHNIQUE: Multidetector volumetric images were obtained from the superior aspect of the liver through the pubic symphysis following administration 85 mL of Omnipaque 350 intravenous contrast. Sagittal and coronal reformatted images were obtained on the technologist's workstation. Oral contrast: No This CT examination was performed using dose optimization techniques as appropriate, variously including the following: *Automated exposure control *Adjustment of mA and/or kV according to patient size (this includes techniques or standardized protocols for targeted exams where dose is matched to indication/reason for exam; i.e. extremities or head) *Use of iterative reconstruction technique DLP: 338 mGy-cm FINDINGS: TELLER: Left upper quadrant calcification LUNG BASES: Atelectasis.- LIVER, GALLBLADDER, AND BILIARY TREE: The liver is normal in size, shape, and attenuation. No focal hepatic lesion. Mild intrahepatic biliary ductal dilatation. Prominent common bile duct to 7 mm in the noncholecystectomy state. Associated pancreatic ductal dilatation. Findings appear more prominent than on 2016 nonenhanced study. PANCREAS: Pancreatic ductal dilatation to the tail, measuring 4 mm in the head. SPLEEN: Unremarkable. ADRENAL GLANDS: Unremarkable. KIDNEYS AND URETERS: The kidneys are normal in size, shape, and attenuation. No hydronephrosis or hydroureter. No perinephric stranding. 2.4 cm nonobstructing left upper pole staghorn calculus. Tiny nonobstructing right upper and left lower pole renal calculi. BLADDER: Decompressed bladder. GASTROINTESTINAL TRACT: Decompressed stomach, wall thickening not excluded. Evaluation of the bowel limited without all oral contrast. Unremarkable appendix. It is difficult to trace the lower GI tract without IV contrast but there is moderate fecal retention of the descending colon and a segment of dilated air-filled sigmoid colon measuring 5 cm. Concern for region of rectosigmoid narrowing and hyperattenuation in the left hemipelvis, coronal 5:53. ABDOMINAL WALL: No significant hernia is appreciated. LYMPH NODES: Normal. VASCULAR: Atherosclerotic calcifications of the aneurysmal aorta. Normal caliber inferior vena cava. Patent portal system. PELVIC VISCERA: Small amount of free pelvic fluid. OSSEOUS STRUCTURES: Minimal retrolisthesis L4 on L5. Degenerative changes, L4-5 and L5-S1 disc space narrowings. Redemonstration L5-S1 calcified disc bulge resulting in compression of the anterior left sided thecal sac and bilateral neuroforaminal encroachment. CT/CT abdomen pelvis w IV con IMPRESSION: 1. Intrahepatic and extrahepatic biliary ductal dilatation and pancreatic ductal dilatation. Consider MRCP. 2. Bilateral nonobstructing renal calculi, largest 2.4 cm left upper pole staghorn calculus. 3. Question rectosigmoid narrowing and hyperattenuation. Consider colonoscopy. 4. Small amount of free pelvic fluid. Fleischner guidelines were followed. Electronically signed by: María Valero MD 01/02/2024 11:54 AM EDT
[2024-01-02 06:36] VITALS: BP 116/79; PULSE 87; RESP 16; TEMP 36.2; O2SAT 98; BMI 20.4
--- NOTE | 2024-01-02 06:57 | ED.GENADULT ---
HPI - General Adult General Chief complaint: General Medical Stated complaint: Pain when swallowing Time Seen by Provider: 01/02/24 06:51 Source: patient Mode of arrival: ambulatory Limitations: no limitations History of Present Illness HPI narrative: 48 years old female presented to the ED with a chief complaint difficult to swallow, this morning woke up was drinking coffee he had breakfast she was having difficulty with painful swallowing. Denies any vomiting denies any abdominal pain. Patient has history of opioid use disorder she is on Suboxone. Onset (ago): hour(s) (4) Location: abdomen Radiation: non-radiation Severity: moderate Quality: burning Pain Consistency: constant Relieving factors: none Exacerbating factors: none Associated symptoms: denies other symptoms Related Data Home Medications ?Medication ?Instructions ?Recorded ?Confirmed buprenorphine 8 mg-naloxone 2 mg 10 mg sublingual DAILY 03/06/20 08/08/23 sublingual film sennosides 8.6 mg capsule (senna) 8.6 mg PO BEDTIME 11/29/22 08/08/23 Previous Rx's ?Medication ?Instructions ?Recorded polyethylene glycol 3350 17 17 g PO DAILY 30 days #510 grams 12/23/21 gram/dose oral powder (Miralax) hydroxyzine HCl 25 mg tablet See Rx Instructions .Route 08/10/22 .COMPLEX anxiety 7 days #10 tabs calcium carbonate 600 mg-vitamin 2 cap PO .QD 90 days #180 caps 04/05/23 D3 5 mcg (200 unit) capsule (Liquid Calcium with Vitamin D) lorazepam 1 mg tablet 1 mg PO ONCE anxiety #1 tab 04/28/23 ibuprofen 800 mg tablet 800 mg PO Q8H PRN pain #90 tabs 08/08/23 cephalexin 500 mg capsule 500 mg PO QID #20 caps 10/09/23 ondansetron 4 mg disintegrating 4 mg PO Q8H 4 days #12 tabs 10/09/23 tablet pantoprazole 40 mg tablet,delayed 40 mg PO DAILY #20 tabs 10/09/23 release (Protonix) atorvastatin 80 mg tablet 80 mg PO BEDTIME 90 days #90 tabs 12/29/23 omeprazole 20 mg capsule,delayed 20 mg PO BID #30 caps 01/02/24 release Allergies Allergy/AdvReac Type Severity Reaction Status Date / Time penicillin V AdvReac Unknown Vomiting, Verified 01/02/24 06:36 diarrhea, Vommiting, diarrhea Penicillins [PENICILLINS] AdvReac Unknown VOMITING, Verified 01/02/24 06:36 DIARRHEA, SWEATING Review of Systems Constitutional: Constitutional: Reports no additional constitutional complaints ENT: Reports system reviewed and no additional complaints, except as documented Cardiovascular: Cardiovascular: Reports no additional cardiovascular complaints [facility] Past Medical History Attestation statement: The following information was validated with the patient. Medical History Smoker Primary insomnia History of opioid abuse Pure hypercholesterolemia Surgical History History of cardiac catheterization History of shoulder surgery History of removal of cyst History of microdiscectomy S/P YU-BSO (total abdominal hysterectomy and bilateral salpingo-oophorectomy) (~2002) Family History Family History Father Vascular disease Myocardial infarction Mother COPD (chronic obstructive pulmonary disease) Lung cancer Brother Myocardial infarction Sister Stroke Paternal Grandmother Stroke Other Substance abuse Social History Social History Housing: Apartment Alcohol intake: former Patient Tobacco Use Status: Current everyday Tobacco user Tobacco use type: Cigarette Cigarette Packs Per Day: 1 Cigarettes Per Day: 20 e-Cigarette/Vaping Use: Never Used Second Hand Smoke Exposure: Yes service: No Current occupational status: employed Cognitive needs: No Hearing needs: Yes (Left ear hearing loss per pt) Vision needs: Yes Physical Exam ED Vital Signs: Vital Signs - 24 hr 01/02/24 06:36 01/02/24 08:22 01/02/24 08:35 Temperature 97.1 F 98.3 F Pulse Rate 87 52 61 Respiratory Rate 16 14 16 Blood Pressure 116/79 104/47 L Pulse Oximetry 98 99 99 Oxygen Delivery Method Room Air Room Air Room Air 01/02/24 10:20 01/02/24 12:13 01/02/24 13:45 Temperature 97.8 F Pulse Rate 66 48 L 48 L Respiratory Rate 16 12 12 Blood Pressure 110/53 L 95/51 L 95/51 L Pulse Oximetry 98 96 96 Oxygen Delivery Method Room Air Room Air Room Air BMI result Body Mass Index 20.4 On examination she looks well she has no toxic-appearing Const General: well developed, alert, awake and Physically active Nutritional Appearance: average body habitus Orientation/consciousness: patient oriented x3 HENMT Head: Yes normal to inspection General nose exam: Normal external nose present Neck Neck: Yes normal visual inspection Chest Chest palpation & inspection: normal inspection of the chest Resp Effort & Inspection: normal respiratory effort Auscultation: clear to auscultation bilaterally Cardio Jugular venous distension: no JVD Rate: regular rate Rhythm: regular rhythm GI Other: Abdomen is soft nontender no peritoneal signs, flat abdomen Palpation (GI): Soft to palpation, not firm, nontender, no guarding and not rigid Neuro General: patient oriented x3 Cranial nerves: Yes CN's II-XII intact bilaterally Course Reevaluation(s) Reevaluation #1: Clinically the patient is stable, white count is normal LFT are normal, CT scan shows a dilated biliary tree however LFT normal. I discussed the case with health officer Dr Cuevas she has an appointment January 21 and sooner if they have a cancellation. The patient is very comfortable with this plan of care. I think she will need an outpatient upper endoscopy and MRI of the abdomen. During this test can be done as outpatient she has no fever she is clinically stable Time: 13:27 Medications Administered Discontinued Medications Generic Name Dose Route Start Last Admin Trade Name Freq PRN Reason Stop Dose Admin Iohexol 100 ml 01/02/24 08:21 01/02/24 08:22 Iohexol 350 Mg/Ml 100 Ml Infus..Btl IV 01/02/24 08:22 85 ml ONCE ONE Administration Medical Decision Making Medical Decision Making [facility] Narrative: Patient presented with a chief complaint of difficult to swallow we will check labs electrocardiogram chest x-ray Differential Diagnosis Differential Diagnoses: The differential diagnosis associated with the presentation includes Esophagitis/reflux Admission/Observation Consideration of admission/observation: Escalation of care including admission/observation considered Consult Healthcare Provider Management of the patient was discussed with: [employer] Positioner Spoke with Dr Cuevas Arranged follow up Lab Data [facility] Lab Attestation statement: I reviewed the patient's lab results. 01/02/24 07:13 01/02/24 07:13 Labs: Lab Results 01/02/24 01/02/24 Range/Units 07:13 07:24 WBC 9.6 (4.8-10.8) X10*3/uL RBC 3.87 L (4.20-5.50) X10*6/uL Hgb 12.0 (12.0-16.0) g/dl Hct 35.3 L (37.0-47.0) % MCV 91.2 (80.0-98.0) fL MCH 31.0 (27.0-33.0) pg MCHC 34.0 (31.0-35.0) g/dl RDW 13.7 (11.0-16.0) % Plt Count 155 L (160-400) X10*3/uL MPV 10.3 (9.4-12.3) fL Immature Gran % (Auto) 0.2 (0.0-0.4) % Neut % (Auto) 69.7 (45-73) % Lymph % (Auto) 22.4 (20-40) % [place] % (Auto) 5.4 (2-11) % Eos % (Auto) 1.9 (0-4) % Baso % (Auto) 0.4 (0-2) % Lymph # (Auto) 2.1 (1.2-4.9) X10*3/uL [place] # (Auto) 0.5 (0.1-1.2) X10*3/uL Eos # (Auto) 0.2 (0.0-0.4) X10*3/uL Baso # (Auto) 0.0 (0.0-0.2) X10*3/uL Abs Immat Gran (auto) 0.02 (0.00-0.03) X10*3/uL Absolute Neuts (auto) 6.7 (2.0-8.3) x10*3/uL Absolute Nucleated RBC 0.000 (0.0-0.012) X10*3/uL Nucleated RBC % (auto) 0.0 (0.0-0.2) /100WBC Sodium 142 (135-145) mmol/L Potassium 3.9 (3.3-5.1) mmol/L Chloride 110 H (96-108) mmol/L Carbon Dioxide 25 (22-29) mmol/L Anion Gap 11 L (12-20) BUN 14 (9-16) mg/dL Creatinine 0.79 (0.5-1.4) mg/dL Estim Creat Clear Calc 68.9 Estimated GFR > 60 Random Glucose 113 (60-115) mg/dL Calcium 9.6 (8.4-10.2) mg/dL Total Bilirubin 0.2 (0.0-1.0) mg/dL AST 22 (5-31) U/L ALT 18 (0-31) U/L Alkaline Phosphatase 52 (39-117) U/L Troponin I High Sens < 2.7 (<3.5-17.0) ng/L Total Protein 6.4 L (6.5-8.0) g/dL Albumin 3.9 (3.5-5.0) g/dL Lipase 108 H (8-78) U/L Urine Color Yellow Urine Appearance Clear Urine pH 7.0 (5.0-9.0) Ur Specific Blanch 1.020 (1.005-1.025) Urine Protein Negative (Neg-Trace) mg/dL Urine Glucose (UA) Negative (Negative) mg/dL Urine Ketones Trace (Negative) mg/dL Urine Blood Negative (Negative) Urine Nitrite Negative (Negative) Ur Leukocyte Esterase Small (1+) H (Negative) Urine RBC 0-2 (0-2) /HPF Urine WBC 6-10 H (0-5) /HPF Ur Squamous Epith Cells 0-2 (0-2) /HPF Urine Bacteria None Seen (None Seen) Hyaline Casts 0-2 (0-2) /LPF Independent Interpretation I performed an independent interpretation of an: EKG (Normal sinus rhythm rate [address]-T changes normal axis normal electrocardiogram review interpreted by me) Radiology Impression Discussion of test interpretation with radiology: I have reviewed the radiologist's reading. Discharge Plan Discharge Clinical Impression: Dysphagia Qualifiers: Dysphagia type: esophageal phase Qualified Code(s): R13.19 - Other dysphagia Patient Disposition: Home, Self-Care Instructions: Dysphagia (ED) Additional Instructions: Follow-up with Dr. Cuevas as discussed Prescriptions: New omeprazole 20 mg capsule,delayed release(DR/EC) 20 mg PO BID Qty: 30 0RF No Action hydroxyzine HCl 25 mg tablet See Rx Instructions .ROUTE .COMPLEX 7 Days Qty: 10 0RF Rx Instructions: Take 1 tablet 20 to 30 minutes before boarding flight/plane. Can take 1 additional dose after 15 to 20 minutes if needed; for anxiety with flying lorazepam 1 mg tablet 1 mg PO ONCE Qty: 1 0RF Rx Instructions: To be taken 30 minutes before upcoming dental procedure/visit, for anxiety atorvastatin 80 mg tablet 80 mg PO BEDTIME 90 Days Qty: 90 1RF pantoprazole [Protonix] 40 mg tablet,delayed release (DR/EC) 40 mg PO DAILY Qty: 20 0RF cephalexin 500 mg capsule 500 mg PO QID Qty: 20 0RF ondansetron 4 mg tablet,disintegrating 4 mg PO Q8H 4 Days Qty: 12 0RF buprenorphine-naloxone 8-2 mg film 10 mg sublingual DAILY polyethylene glycol 3350 [Miralax] 17 gram/dose powder 17 g PO DAILY 30 Days Qty: 510 5RF Liquid Calcium with Vitamin D 600 mg-5 mcg (200 unit) capsule 2 cap PO .QD 90 Days Qty: 180 3RF senna 8.6 mg capsule 8.6 mg PO BEDTIME ibuprofen 800 mg tablet 800 mg PO Q8H PRN (Reason: pain) Qty: 90 3RF Referrals: Priya Cuevas MD [Physician] - 01/18/24 Interventions: ED Discharge Assessment Last Done: 01/02/24 13:45 Discharge Date/Time: 01/02/24 13:45 Print Language: Telugu
--- NOTE | 2024-01-02 07:13 | PC.NURSE ---
a&ox4. vss and up to date. nsr on the patient monitor. pt presents to the ED after she reports drinking coffee and eating breakfast this morning where she was having difficulty and painful swallowing with associated epigastric pain radiating to right lower back. took unknown dose of pantoprazole w/o relief. no sob/wob noted. denies fever/chills. pt concerned for pancreatitis d/t previous w/ her PCP. abd tender w/ palpation. 20gIV placed in the left AC - labs obtained/sent to lab. urine also obtained/sent to lab. ekg performed by tech. pt displaying no signs of respiratory distress. no sob/wob noted. respirations even/unlabored. lung sounds CTA. plan of care ongoing. call garsia placed within reach.
[2024-01-02 07:17] LABS: MANUAL DIFF FLAG NO
[2024-01-02 07:19] LABS: Basophils Percent Auto 0.4 % (0-2); Eosinophils Absolute Auto 0.2 X10*3/uL (0.0-0.4); Eosinophils Percent Auto 1.9 % (0-4); Hematocrit 35.3 % (37.0-47.0); Imm Gran Abs Auto 0.02 X10*3/uL (0.00-0.03); Imm Gran Pct Auto 0.2 % (0.0-0.4); Lymphocytes Absolute Auto 2.1 X10*3/uL (1.2-4.9); Lymphocytes Percent Auto 22.4 % (20-40); Mean Corpuscular Volume 91.2 fL (80.0-98.0); Mean Platelet Volume 10.3 fL (9.4-12.3); Monocytes Absolute Auto 0.5 X10*3/uL (0.1-1.2); Monocytes Percent Auto 5.4 % (2-11); Neutrophils Absolute Auto 6.7 x10*3/uL (2.0-8.3); Neutrophils Percent Auto 69.7 % (45-73); Platelet Count 155 X10*3/uL (160-400); Red Blood Count 3.87 X10*6/uL (4.20-5.50); Red Cell Distribution Width 13.7 % (11.0-16.0); White Blood Count 9.6 X10*3/uL (4.8-10.8)
[2024-01-02 07:29] LABS: Appearance Urine Clear; Color Urine Yellow; Glucose Urine UA Negative (Negative); Leukocyte Esterase Urine Small (1+) (Negative); Nitrite Urine Negative (Negative); UMIC TRIGGER UACC YES; Urine Blood Negative (Negative); Urine Ketones Trace mg/dL (Negative); Urine Protein Negative (Neg-Trace)
[2024-01-02 07:35] LABS: Lipase 108 U/L (8-78)
[2024-01-02 07:37] LABS: Bacteria Urine None Seen (None Seen); Hyaline Casts Urine 0-2 /LPF (0-2); RBC Urine 0-2 /HPF (0-2); Squamous Epithelial Cell Urine 0-2 /HPF (0-2); UACC Culture Trigger YES
[2024-01-02 07:38] LABS: Alanine Aminotransferase 18 U/L (0-31); Albumin Level 3.9 g/dL (3.5-5.0); Alkaline Phosphatase 52 U/L (39-117); Anion Gap 11 (12-20); Aspartate Amino Transferase 22 U/L (5-31); Bilirubin Total 0.2 mg/dL (0.0-1.0); Blood Urea Nitrogen 14 mg/dL (9-16); Calcium 9.6 mg/dL (8.4-10.2); Carbon Dioxide 25 mmol/L (22-29); Chloride 110 mmol/L (96-108); Creatinine Clr Calc Pharmacy 68.9; Estimated Glomerular Filt Rate > 60; Glucose Random 113 mg/dL (60-115); Potassium 3.9 mmol/L (3.3-5.1); Sodium 142 mmol/L (135-145); Total Protein 6.4 g/dL (6.5-8.0)
--- NOTE | 2024-01-02 07:40 | PC.NURSE ---
pt to xray at this time.
[2024-01-02 07:47] LABS: Troponin-I High Sensitivity < 2.7 ng/L (<3.5-17.0)
[2024-01-02 08:22] VITALS: BP 104/47; PULSE 52; RESP 14; O2SAT 99
[2024-01-02] MEDS: iohexoL 350 MG/ML 100 ML INFUS..BTL IV (08:22)
[2024-01-02 08:35] VITALS: PULSE 61; RESP 16; TEMP 36.8; O2SAT 99
[2024-01-02 10:20] VITALS: BP 110/53; PULSE 66; RESP 16; O2SAT 98
[2024-01-02 12:13] VITALS: BP 95/51; PULSE 48; RESP 12; O2SAT 96
[2024-01-02 13:45] VITALS: BP 95/51; PULSE 48; RESP 12; TEMP 36.6; O2SAT 96
== END 2024-01-02 13:45 | disposition home or self-care (01) ==
PROVIDERS: Emergency Provider Emergency Medicine; PCP Internal Medicine
DX: R13.19 Other dysphagia (principal); R10.13 Epigastric pain; Z79.891 Long term (current) use of opiate analgesic; Z79.899 Other long term (current) drug therapy; F17.210 Nicotine dependence, cigarettes, uncomplicated
CPT/HCPCS: 36415; 71046; 74177; 80053; 81001; 83690; 84484; 85025; 87086; 93005; 99284; 99285; Q9967

== ENCOUNTER 2024-01-22 12:22 | Outpatient (AMB) | payer BC, SELFPAY ==
--- NOTE | 2024-01-22 12:24 | A.OFFVIS_ITS ---
Vital Signs 01/22/24 12:27 Height 5 ft 7 in Weight 114 lb 10.246 oz BMI 18.0 BP 124/64 Blood Pressure Location Lt brachial Position Sitting Pulse 71 Intake Visit Reasons: Gastritis, Dysphagia Intake Note: Korin presents in the office as a new patient for Gastritis and Dysphagia. CC: She had to episodes where she ended in the ER. She has pains in the epigastric region and feels like it was an attack. She was unable to keep food down - she had someone telling her about her pancreas and the other about her liver and was sent home with GERD papers. States that she has not drank alcohol in years. She gets a little constipation from suboxone but takes Senna occasionally if need be. Dilated bile duct was seen so she was sent here! Facility Manager Histology Required: No Allergies penicillin V Adverse Reaction (Unknown, Verified 01/22/24 12:29) Vomiting, diarrhea, Vommiting, diarrhea Penicillins [PENICILLINS] Adverse Reaction (Unknown, Verified 01/22/24 12:29) VOMITING, DIARRHEA, SWEATING HPI HPI Gastritis, Dysphagia: Details: HPI 48 yr old f YU and smoking hx here for assessment of abdominal pain She had epigastric pain 01/08 which was 7-8/10 in severity, was there for a prolonged time, no radiaiton-- no exacerbating factors, no nausea or vomiting, she does have constipation, chronic, sx worse with food, and relived by itself after 3 hours or so appetite is good, weight is a little lower than nml deneis dysphagia, no night sweats she had an initial attack which was few months before this she is on suboxone chronically CT in ED with dilated cbd and PD with atherosclerosis and some narrowing of colrectal area ROS: Constitutional : No Fever, No Chills ENT/Mouth : No sore throat, No Rhinorrhea Eyes: No Swelling, No Redness Cardiovascular : No Chest Pain, No SOB, No Edema Respiratory : No Cough, No Sputum, No Wheezing Gastrointestinal : see HPI Genitourinary : NO Dysuria, No Urinary Frequency, No Hematuria, No Urgency Musculoskeletal : + joint pain, No Myalgias, No Joint Swelling Skin : No Skin Lesions, No rash Neuro : No Weakness, No Numbness, No Dizziness, No Headache Psych : No Anxiety/Panic, No Depression Heme/Lymph: No Bruising, No Lymphadenopathy Endocrine : No Polyuria, No Polydipsia All other systems reviewed and are negative. Medical History Smoker Primary insomnia History of opioid abuse Pure hypercholesterolemia Surgical History History of cardiac catheterization History of shoulder surgery History of removal of cyst History of microdiscectomy S/P YU-BSO (total abdominal hysterectomy and bilateral salpingo-oophorectomy) (~2002) Family History Father Vascular disease Myocardial infarction Mother COPD (chronic obstructive pulmonary disease) Lung cancer Brother Myocardial infarction Sister Stroke Paternal Grandmother StrokeOther Substance abuse Social History Housing: Apartment Alcohol intake: former Patient Tobacco Use Status: Current everyday Tobacco user Tobacco use type: Cigarette Cigarette Packs Per Day: 1 Cigarettes Per Day: 20 no alcohol EXAM: GENERAL: The patient is thin VITAL SIGNS:see workflow HEENT: Nonicteric sclerae, PERRLA, EOMI. Oropharynx clear. Moist mucous membranes. Conjunctivae appear well perfused. No thyroid mass. CHEST: Chest wall is nontender. HEART: Regular rate and rhythm without murmurs. LUNGS: Clear to auscultation bilaterally. ABDOMEN: Soft, positive bowel sounds, nontender, no organomegaly.no flank tenderness SKIN: No rash, no excessive bruising, petechiae, or purpura. NEUROLOGIC: Cranial nerves II-XII intact without motor/sensory deficit. Psych: normal affect A/P: 1/ Dilated PD, and CBD but LFN nml--could be due to SOD from suboxone use, less likely obstructive lesion given nml LFT 2/narrowing rectal area, ddx: stricture, neoplasia, 3/ constipation-from suboxone and 2/ above 4/ staghorn calculus on imaging PLAN: 1/ MRI abdo to eval PD and CBD further, might need ercp or EUS depending on res ults 2/ check hep serologies 3/ refer urology for staghorn 4/ trial of linaclotide 5/ egd and colo with suprep [facility] Medical History Smoker Primary insomnia History of opioid abuse Pure hypercholesterolemia Surgical History History of cardiac catheterization History of shoulder surgery History of removal of cyst History of microdiscectomy S/P YU-BSO (total abdominal hysterectomy and bilateral salpingo-oophorectomy) (~2002) Family History Father Vascular disease Myocardial infarction Mother COPD (chronic obstructive pulmonary disease) Lung cancer Brother Myocardial infarction Sister Stroke Paternal Grandmother Stroke Other Substance abuse Social History Housing: Apartment Alcohol intake: former Patient Tobacco Use Status: Current everyday Tobacco user Tobacco use type: Cigarette Cigarette Packs Per Day: 1 Cigarettes Per Day: 20 e-Cigarette/Vaping Use: Never Used Second Hand Smoke Exposure: Yes service: No Current occupational status: employed Cognitive needs: No Hearing needs: Yes (Left ear hearing loss per pt) Vision needs: Yes Physical Exam Vital Signs: Last Vital Signs Pulse 71 01/22/24 12:27 BP 124/64 01/22/24 12:27 BMI result Body Mass Index 18.0 Assessment & Plan Assessment & Plan (1) Staghorn calculus: Code(s): N20.0 - Calculus of kidney Category: Medical Plan: see above (2) Common bile duct dilation: Code(s): K83.8 - Other specified diseases of biliary tract Category: Medical Plan: see above Orders: Orders MR abdomen wo/w con Today K83.8 - Other specified diseases of biliary tract Hepatitis A,B,C Profile Today K83.8 - Other specified diseases of biliary tract, N20.0 - Calculus of kidney Referrals Urology Referral K83.8 - Other specified diseases of biliary tract, N20.0 - Calculus of kidney Medications: New linaclotide 145 mcg PO DAILY 30 caps 3RF sodium,potassium,mag sulfates 17.5-3.13-1.6 gram (Suprep Bowel Prep Kit) DILUTE; drink 1/2 at 6-8 pm and half at 11 PM- 1AM 354 mL 0RF Coding Level of Care Code New Pt Level 4 (51064) Diagnoses Staghorn calculus N20.0 Common bile duct dilation K83.8
[2024-01-22 12:27] VITALS: BP 124/64; PULSE 71; BMI 18.0
== END 2024-01-22 12:55 | disposition home or self-care (01) ==
PROVIDERS: PCP Internal Medicine; Visit Provider Internal Medicine Gastroenterology
DX: N20.0 Calculus of kidney (principal); K83.8 Other specified diseases of biliary tract
CPT/HCPCS: 99204

== ENCOUNTER → 2024-01-22 12:22 | Outpatient (BNVA) | payer BC, SELFPAY | PROVIDERS: PCP Internal Medicine; Visit Provider Internal Medicine Gastroenterology ==

== ENCOUNTER 2024-02-08 08:14 | Outpatient (REF) | payer BC, SELFPAY ==
[2024-02-08 12:27] LABS: Influenza A PCR NEGATIVE (Negative); Influenza B PCR NEGATIVE (Negative); Resp Syncy Virus RNA Qual PCR NEGATIVE (Negative); SARS COV2 PCR INHOUSE NEGATIVE (Negative)
== END 2024-02-08 08:15 | disposition home or self-care (01) ==
LOC: HO.LNP 08:14
PROVIDERS: PCP Internal Medicine; Visit Provider Registered Nurse
DX: J06.9 Acute upper respiratory infection, unspecified (principal)
CPT/HCPCS: 0241U; 87880

== ENCOUNTER 2024-02-08 08:14 | Outpatient (AMB) | payer BC, SELFPAY ==
--- NOTE | 2024-02-08 08:39 | MHC.OFFWIV ---
Intake Vital Signs 02/08/24 08:42 Weight 120 lb BP 110/70 Blood Pressure Location Lt brachial Position Sitting Pulse 70 Pulse Source Pulse Oximeter Temp 98.2 F Temp Source Oral Pulse Oximetry (%) 98 Intake Visit Reasons: EP-sore throat, skin pain Intake Note: Patient here for sore throat that started yesterday and skin hurts. Patient Tobacco Use Status: Current everyday Tobacco user Allergies penicillin V Adverse Reaction (Unknown, Verified 02/08/24 08:40) Vomiting, diarrhea, Vommiting, diarrhea Penicillins [PENICILLINS] Adverse Reaction (Unknown, Verified 02/08/24 08:40) VOMITING, DIARRHEA, SWEATING Do you need a note to return to daycare/school/sports/work: No HPI EP-sore throat, skin pain HPI Details This note is constructed using voice recognition software. While every effort has been made to ensure accuracy, data processing equipment repairer errors may have been included. The patient is a 48 year old female who presents to the clinic today with pharyngitis with skin pain. She reports that she is going through several medical conditions currently, and wants to make sure that she is not currently sick. She reports that she developed a sore throat yesterday, and then noticed that her skin generally feels uncomfortable. She reports that she had similar skin discomfort when she had COVID in the past. She denies fever, chills, cough, shortness of breath, body aches. She does note that she was recently started on Linzess and was advised that she needs to hydrate better as this may cause dry skin. She has no rash, no itch. [facility] Medical History Smoker Primary insomnia History of opioid abuse Pure hypercholesterolemia Surgical History History of cardiac catheterization History of shoulder surgery History of removal of cyst History of microdiscectomy S/P YU-BSO (total abdominal hysterectomy and bilateral salpingo-oophorectomy) (~2002) Family History Father Vascular disease Myocardial infarction Mother COPD (chronic obstructive pulmonary disease) Lung cancer Brother Myocardial infarction Sister Stroke Paternal Grandmother Stroke Other Substance abuse Social History Housing: Apartment Alcohol intake: former Patient Tobacco Use Status: Current everyday Tobacco user Tobacco use type: Cigarette Cigarette Packs Per Day: 1 Cigarettes Per Day: 20 e-Cigarette/Vaping Use: Never Used Second Hand Smoke Exposure: Yes service: No Current occupational status: employed Cognitive needs: No Hearing needs: Yes (Left ear hearing loss per pt) Vision needs: Yes Review of Systems Const All systems reviewed & are unremarkable except as noted in HPI and below Physical Exam Vital Signs: Last Vital Signs Temp 98.2 F 02/08/24 08:42 Pulse 70 02/08/24 08:42 BP 110/70 02/08/24 08:42 Pulse Ox 98 02/08/24 08:42 Const General: cooperative, healthy appearing, comfortable and no acute distress Orientation/consciousness: patient oriented x3 Limitations: no limitations HEENT Head: Yes normal to inspection Ears: hearing grossly normal bilaterally, external ears normal and TM abnormal retracted General nose exam: Normal external nose present, No nasal discharge present and Abnormal mucous membranes and turbinates present boggy and pale Face and sinus: Yes normal facial exam and Yes sinuses nontender Mouth: Normal oral and palatal mucosa present and moist mucous membranes Throat: Yes tonsils normal, Yes uvula midline, Yes posterior oropharynx abnormal (Erythema) and Yes postnasal drainage Eyes General: appearance normal, both eyes and all related structures Neck Neck: Yes normal visual inspection Resp Effort & Inspection: normal respiratory effort, able to speak in complete sentences, Actively coughing, no respiratory distress, not tachypneic, no tripod positioning and no use of accessory muscles Auscultation: clear to auscultation bilaterally Cardio Rate: regular rate Rhythm: regular rhythm Heart sounds: normal S1 and S2 Skin Other: Widespread dry skin, no rash present General skin exam: no rashes or lesions noted Neuro General: patient oriented x3 Extrem General: Yes normal to inspection and Yes no clubbing, cyanosis or edema Results AMB Rapid Strep AMB Rapid Strep Negative Last Edit by HELIO Herring on 02/08/24 08:54 Assessment & Plan Assessment & Plan (1) Pharyngitis: Code(s): J02.9 - Acute pharyngitis, unspecified Qualifiers: Pharyngitis/tonsillitis etiology: unspecified etiology Qualified Code(s): J02.9 - Acute pharyngitis, unspecified Plan: In office rapid strep negative. Viral swab obtained to rule out Covid based on symptoms. Advised mask wearing while symptomatic and quarantine per current CDC guidelines. Reviewed at home support methods including hydration, humidification, vix vapor rub, sinus rinse. Symptoms likely related to allergic rhinitis. Supportive measures encouraged and reviewed. Advised patient to try a Flonase nasal spray and second-generation antihistamine such as Zyrtec, Claritin, Ann or similar. Advised consideration of sinus rinse if needed. Advised follow up with worsening symptoms such as dyspnea at rest, which would require emergent evaluation. Plan See above for full details and plan. Orders: Orders SARS-CoV2/FLU/RSV Today J06.9 - Acute upper respiratory infection, unspecified AMB Rapid Strep Screen Today Z13.9 - Encounter for screening, unspecified Coding Level of Care Code Est Pt Level 3 (36593) Diagnoses Pharyngitis, unspecified etiology J02.9 Pharyngitis/tonsillitis etiology: unspecified etiology
[2024-02-08 08:42] VITALS: BP 110/70; PULSE 70; TEMP 36.8; O2SAT 98
== END 2024-02-08 09:07 | disposition home or self-care (01) ==
PROVIDERS: PCP Internal Medicine; Visit Provider Registered Nurse
DX: Z13.9 Encounter for screening, unspecified (principal); J02.9 Acute pharyngitis, unspecified

== ENCOUNTER 2024-02-10 07:01 | Outpatient (REF) | payer BC, SELFPAY ==
[2024-02-10 08:39] LABS: HBS Num1 1.25 mIU/mL (0-7.99); HBc Num1 0.33 S/CO (0.00-0.79); HBsAGNum1 0.29 S/CO (0.00-0.99); Hepatitis A Antibody IgM 0.16 Index (0-0.79); Hepatitis B Core Antibody Nonreactive (Nonreactive); Hepatitis B Surface Antigen Negative (Negative); ~Hepatitis A Antibody IgM Nonreactive (Nonreactive); ~Hepatitis B Surface Antibody NONREACTIVE (Nonreactive); ~Hepatitis C Antibody Nonreactive (Nonreactive)
== END 2024-02-10 07:02 | disposition home or self-care (01) ==
LOC: HO.LAB 07:01
PROVIDERS: PCP Internal Medicine; Referring Provider Internal Medicine; Visit Provider Internal Medicine Gastroenterology
DX: K83.8 Other specified diseases of biliary tract (principal); N20.0 Calculus of kidney
CPT/HCPCS: 36415; 86704; 86706; 86709; 86803; 87340

== ENCOUNTER 2024-02-27 08:51 | Outpatient (REF) | payer BC, SELFPAY ==
[2024-02-27] MEDS: gadobutroL 7.5 ML VIAL IVPUSH (09:47)
== END 2024-02-27 08:52 | disposition home or self-care (01) ==
LOC: HO.MRI 08:51
PROVIDERS: PCP Internal Medicine; Visit Provider Internal Medicine Gastroenterology
DX: K83.8 Other specified diseases of biliary tract (principal)
CPT/HCPCS: 74183; A9585

== ENCOUNTER 2024-03-01 12:37 | Outpatient (AMB) | payer BC, SELFPAY ==
[2024-03-01 12:50] VITALS: BP 100/70; PULSE 83; O2SAT 95; BMI 18.5
--- NOTE | 2024-03-01 12:50 | A.OFFPC_ITS ---
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 Accompanied by: Self / Same As Patient Allergies penicillin V Adverse Reaction (Unknown, Verified 03/01/24 13:33) Vomiting, diarrhea, Vommiting, diarrhea Penicillins [PENICILLINS] Adverse Reaction (Unknown, Verified 03/01/24 13:33) VOMITING, DIARRHEA, SWEATING Medication List - Last Reconciled 03/01/24 by David Frost MD atorvastatin 80 mg PO BEDTIME 90 days buprenorphine-naloxone 8-2 mg 10 mg sublingual DAILY calcium carbonate-vitamin D3 600 mg-5 mcg (200 unit) 2 tabs PO DAILY linaclotide 145 mcg PO DAILY sodium,potassium,mag sulfates 17.5-3.13-1.6 gram (Suprep Bowel Prep Kit) DILUTE; drink 1/2 at 6-8 pm and half at 11 PM- 1AM Tobacco use date assessed: 03/01/24 Dental Screening Dental Screen Date: 03/01/24 Did you have a dental visit in the last 12 months?: Yes Did you have a dental problem in the last 6 months where you did not have access to dental care?: No Was dental information given to patient?: Patient has dentist HPI hyperlipidemia, anxiety HPI Details Patient comes in today for her follow up visit States that she currently feels okay She recently went to the ER a couple of months ago for difficulty swallowing/dysphagia - states that she was concerned at the time that she may have pancreatitis as her symptoms felt similar to when she had a bout of pancreatitis many years ago Labs done at the ER came back okay but her abdominal CT revealed (+) intrahepatic and extrahepatic biliary ductal dilatation and pancreatic ductal dilatation - consider MRCP; bilateral nonobstructing renal calculi, largest 2.4 cm left upper pole staghorn calculus; questionable rectosigmoid narrowing and hyperattenuation - consider colonoscopy and a small amount of free pelvic fluid GI was consulted and recommended abdominal MRI that can be done on an outpatient basis States that she just had her MRI done a couple of days ago and she has a follow up appointment scheduled with Dr. Cuevas in a couple of months She was also referred to urology for her staghorn calculus and has appt with urology next month on 03/29/2024 Patient states that her issues with swallowing has gradually subsided and she currently feels okay She denies any increased headaches or dizziness Denies any chest pains, no increased SOB No nausea/vomiting, no abdominal pain No change in bowel habits noted She thought she had her follow up labs done as she asked the lab when she was there a few weeks ago and they supposedly reassured her that all of her pending labs are there but it turns out they only did her hepatitis profile She also recalls getting a phone call from the office recently informing her that she has osteoporosis based on her recent BMD report She would also like to get her flu shot today PFSH Medical History Smoker Primary insomnia History of opioid abuse Pure hypercholesterolemia Surgical History History of cardiac catheterization History of shoulder surgery History of removal of cyst History of microdiscectomy S/P YU-BSO (total abdominal hysterectomy and bilateral salpingo-oophorectomy) (~2002) Family History Father Vascular disease Myocardial infarction Mother COPD (chronic obstructive pulmonary disease) Lung cancer Brother Myocardial infarction Sister Stroke Paternal Grandmother Stroke Other Substance abuse Social History Housing: Apartment Alcohol intake: former Patient Tobacco Use Status: Current everyday Tobacco user Tobacco use type: Cigarette Cigarette Packs Per Day: 1 Cigarettes Per Day: 20 e-Cigarette/Vaping Use: Never Used Second Hand Smoke Exposure: Yes service: No Current occupational status: employed Cognitive needs: No Hearing needs: Yes (Left ear hearing loss per pt) Vision needs: Yes Questionnaire PHQ-9 Over the last 2 weeks, how often have you been bothered by any of the following problems? 1. Little interest or pleasure in doing things: not at all 2. Feeling down, depressed, or hopeless: not at all 3. Trouble falling or staying asleep, or sleeping too much: not at all 4. Feeling tired or having little energy: not at all 5. Poor appetite or overeating: not at all 6. Feeling bad about yourself - or that you are a failure or have let yourself or your family down: not at all 7. Trouble concentrating on things, such as reading the newspaper or watching television: not at all 8. Moving or speaking so slowly that other people could have noticed. Or the opposite - being so fidgety or restless that you have been moving around a lot more than usual: not at all 9. Thoughts that you would be better off or of hurting yourself in some way: not at all Total score: 0 Depression Screening Interpretation: Negative Depression Screening Done: Yes 36446 - PHQ-9 Billing: Yes Source: Developed by Drs. Jared Lyn, Darby Echeverria, Adam Casiano and colleagues, with an educational tania from [employer]. Thrive Questionnaire Date Thrive assessed: 03/01/24 I am a: Patient What is your living situation today?: I have a steady place to live Within the past 12 months, did the food you bought not last and you didn't have the money to get more?: Never true Within the past 12 months, did you worry whether your food would run out before you got money to buy more?: Never true Do you have trouble paying for medicines?: No Do you have trouble getting transportation to medical appointments?: No Do you have trouble paying your heating and electricity bill?: No Do you have trouble taking care of your child, family member or friend?: No Do you have trouble with day-to-day activities such as bathing, preparing meals, shopping, managing finances, etc.?: No Are you currently unemployed and looking for a job?: No Are you interested in more education?: No Please select the resources that you would like help with: None Currently or been in a relationship where the following occur: No concerns reported THRIVE Score: 0 AUDIT C Alcohol Use Questionnaire (AUDIT-C) 1. How often do you have a drink containing alcohol?: Never 3. How often do you have six or more drinks on one occasion?: Never Total Score: 0 Score Reviewed/Action Taken: Yes ALEN-7 AMB Questionnaire ALEN-7 Date ALEN - 7 assessed: 03/01/24 Feeling nervous, anxious, or on edge: 0 = Not at all Not being able to stop or control worryin = Not at all Worrying too much about different things: 0 = Not at all Trouble relaxin = Not at all Being so restless that it is hard to sit still: 0 = Not at all Becoming easily annoyed or irritable: 0 = Not at all Feeling afraid as if something awful might happen: 0 = Not at all Total ALEN-7 score (0-4 normal; 5-9 mild; 10-14 moderate; 15-21 severe): 0 Source: Developed by Drs. Jared Lyn, Darby Echeverria, Adam Casiano and colleagues, with an educational tania from [employer]. Review of Systems Const Denies chills, Reports fatigue, Denies fever(s) and Denies headache(s) ENT Denies dysphagia, Denies dizziness, Denies otalgia, Denies headache(s), Denies odynophagia, Denies sinus pain and Denies sore throat Card Denies chest pain, Denies palpitations and Denies dyspnea Resp Denies chest congestion, Denies cough and Denies dyspnea GI Denies abdominal pain, Denies constipation, Denies dysphagia, Denies heartburn, Denies diarrhea, Denies nausea, Denies odynophagia and Denies vomiting Denies difficulty voiding, Denies nocturia, Denies dysuria and Denies urinary urgency Musc Denies back pain and Denies arthralgias Skin/Breast Denies rash Neuro Denies dizziness and Denies headache(s) Endo Reports fatigue and Denies palpitations Physical exam (Primary Care) Vital Signs: Last Vital Signs Pulse 83 03/01/24 12:50 BP 100/70 03/01/24 12:50 Pulse Ox 95 03/01/24 12:50 Oxygen Delivery Method Room Air 03/01/24 12:50 BMI result Body Mass Index 18.5 Tobacco/Smoking Status: Tobacco use Status Tobacco use date assessed 03/01/24 03/01/24 12:56 Patient Tobacco Use Status Current everyday Tobacco 03/01/24 12:56 Tobacco use type Cigarette 03/01/24 12:56 e-Cigarette/Vaping Use Never Used 03/01/24 12:56 PHQ-9: PHQ-9 Score PHQ-9: Total score 0 03/01/24 12:56 Depression Screening Interpretation: Negative Thrive Assessment: Date of Thrive Assessment Date Thrive assessed 03/01/24 03/01/24 12:56 Currently or been in a relationship where the following occur: No concerns reported Const General: no acute distress and alert HENMT Ears: TM's normal bilaterally and EAC's normal Throat: Yes posterior oropharynx normal and Yes tonsils normal (no TP congestion) Neck Neck: Yes no lymphadenopathy and Yes supple Thyroid: Thyroid normal Resp Auscultation: clear to auscultation bilaterally, no rales and no wheezes Cardio Rate: regular rate Rhythm: regular rhythm Heart sounds: no murmurs GI Palpation (GI): Soft to palpation and nontender Auscultation: normal bowel sounds Extrem General: Yes no clubbing, cyanosis or edema Office Procedures Flu Questionnaire Does the patient have a severe egg allergy?: No Does the patient have severe life threatening allergies?: No Does the patient have a fever or illness today?: No Has the patient ever had Guillain-[place] Syndrome?: No Has the patient ever had any past reaction to a flu shot?: No Immunizations Fluarix Triv 9307-3523 (PF) 45 mcg (15 mcg x 3)/0.5 mL IM syringe Performing Provider: David Frost MD [facility] Administered by: SHANELL Munoz on 03/01/24 13:01 Dose Route Admin Location Dispensed Lot Number Expiration Date [place] Meter Reader 0.5 mL IM Left Deltoid 0.5 mL [id number] 10/14/24 [id number] Credit Coach VIS Given Date VIS Provided VIS Publication Date 03/01/24 Single Vaccine 20 Eligibility Eligibility Date Funding Source Not [facility] Eligible 03/01/24 Private Results Reviewed Results Reviewed: Laboratory Tests 01/02/24 02/10/24 07:13 07:15 Lipase 108 H Hepatitis A IgM Ab Nonreactive Hep Bs Antigen Negative Hep Bs Antibody NONREACTIVE Hep B Core Total Ab Nonreactive Hepatitis C Ab (EIA) Nonreactive Coding Level of Care Code Est Pt Level 4 (62772) Complex EM visit Add On G2211 Diagnoses Osteoporosis without current pathological fracture, unspecified osteoporosis type M81.0 Osteoporosis type: unspecified Presence of current pathological fracture: without current pathological fracture Common bile duct dilation K83.8 Staghorn calculus N20.0 Pure hypercholesterolemia E78.00 History of opioid abuse F11.11 Drug-induced constipation K59.03 Constipation type: drug induced constipation Primary insomnia F51.01 Smoker F17.200 Additional Codes PHQ-9 - 24318 - PHQ-9 Billing: Yes ([id number]) Assessment & Plan Assessment & Plan (1) Osteoporosis: Code(s): M81.0 - Age-related osteoporosis without current pathological fracture Category: Medical Qualifiers: Osteoporosis type: unspecified Presence of current pathological fracture: without current pathological fracture Qualified Code(s): M81.0 - Age- related osteoporosis without current pathological fracture Plan: Her most recent BMD done a couple of months ago on 12/29/2023 revealed (+) osteoporosis based on the lowest T-score value of -2.7 in the lumbar spine This represents about an 8% decline in her BMD from a couple of years ago in 2021, when her T-score was -2.1 Patient relates that she had a complete hysterectomy done years ago when she was young and this may be the main reason for her advanced osteoporosis Will send her for some additional labs to check for urinary NTx to assess for increased or abnormal bone resorption and turnover Due to her advanced osteoporosis (considering her age), will refer her to endocrinology for further evaluation and management (2) Common bile duct dilation: Code(s): K83.8 - Other specified diseases of biliary tract Category: Medical Plan: Abdominal and pelvic CT done at the ER a couple of months ago revealed (+) intrahepatic and extrahepatic biliary ductal dilatation and pancreatic ductal dilatation She underwent an abdominal MRI a few days ago for further evaluation - report is still pending at this time She has a follow up appt scheduled with GI (Dr. Cuevas) in a couple of months for this issues (3) Staghorn calculus: Code(s): N20.0 - Calculus of kidney Category: Medical Plan: She also had bilateral nonobstructing renal calculi, the largest at 2.4 cm at the left upper pole - staghorn calculus She has been referred to urology to help address this and she is now scheduled to see urology for consultation next month (4) Pure hypercholesterolemia: Code(s): E78.00 - Pure hypercholesterolemia, unspecified Category: Medical Plan: She did not have her fasting lipids done recently; states that she will try to get these done [facility] (labs are updated for her) Reinforced low cholesterol diet Continue Atorvastatin 80 mg QD Will recheck her labs and fasting lipids in 4 months for follow up (5) History of opioid abuse: Code(s): F11.11 - Opioid abuse, in remission Category: Medical Plan: Continue Suboxone 8-2 mg 10 mg? sublingually once a day Follow-up with the Suboxone clinic as scheduled (6) Constipation: Code(s): K59.00 - Constipation, unspecified Category: Medical Qualifiers: Constipation type: drug induced constipation Qualified Code(s): K59.03 - Drug induced constipation Plan: This is most likely related to her Suboxone Tx She is again encouraged to increase her oral fluids and dietary fiber Continue OTC Senna PRN and Miralax 17 gm QD (7) Primary insomnia: Code(s): F51.01 - Primary insomnia Category: Medical Plan: Sleep hygiene reinforced (8) Smoker: Code(s): F17.200 - Nicotine dependence, unspecified, uncomplicated Category: Social Hx Plan: Patient is counseled again on smoking cessation Plan As requested, flu vaccine given today Follow up in 4 months Orders: Orders Comprehensive [place]. Panel Fast 4 Months E78.00 - Pure hypercholesterolemia, unspecified Lipid Panel 4 Months E78.00 - Pure hypercholesterolemia, unspecified Influenza 7194-1000 Immunization Today Z23 - Encounter for immunization Collagen Crosslinks NTX Today M81.0 - Age-related osteoporosis without current pathological fracture Referrals Endocrinology Referral M81.0 - Age-related osteoporosis without current pathological fracture
== END 2024-03-01 13:32 | disposition home or self-care (01) ==
PROVIDERS: PCP Internal Medicine; Visit Provider Internal Medicine
DX: N20.0 Calculus of kidney (principal); M81.0 Age-related osteoporosis without current pathological fracture; K83.8 Other specified diseases of biliary tract; F11.11 Opioid abuse, in remission; E78.00 Pure hypercholesterolemia, unspecified; K59.03 Drug induced constipation; F51.01 Primary insomnia; F17.200 Nicotine dependence, unspecified, uncomplicated

== ENCOUNTER → 2024-03-01 12:37 | Outpatient (BNVA) | payer BC, SELFPAY | PROVIDERS: PCP Internal Medicine; Visit Provider Internal Medicine | DX: M81.0 Age-related osteoporosis without current pathological fracture (principal); K83.8 Other specified diseases of biliary tract; N20.0 Calculus of kidney; E78.00 Pure hypercholesterolemia, unspecified; Z23 Encounter for immunization; K59.03 Drug induced constipation; F51.01 Primary insomnia; F11.20 Opioid dependence, uncomplicated; F17.210 Nicotine dependence, cigarettes, uncomplicated; Z79.899 Other long term (current) drug therapy | CPT/HCPCS: 90471; 90656; 96127 ==

== ENCOUNTER 2024-03-06 14:58 | Outpatient (AMB) | payer BC, SELFPAY ==
[2024-03-06 15:01] VITALS: BP 114/60; PULSE 62; BMI 18.2
--- NOTE | 2024-03-06 15:01 | A.OFFVIS_ITS ---
Vital Signs 03/06/24 15:01 Height 5 ft 7 in Weight 116 lb 2.938 oz BMI 18.2 BP 114/60 Blood Pressure Location Lt brachial Position Sitting Pulse 62 Pulse Source Pulse Oximeter Intake Visit Reasons: Age-related osteoporosis-confirmed Intake Note: Patient present today for Age-related osteoporosis office visit. See Wheeler Required: No Accompanied by: Self / Same As Patient Allergies penicillin V Adverse Reaction (Unknown, Verified 03/06/24 15:05) Vomiting, diarrhea, Vommiting, diarrhea Penicillins [PENICILLINS] Adverse Reaction (Unknown, Verified 03/06/24 15:05) VOMITING, DIARRHEA, SWEATING Medication List - Last Reconciled 03/06/24 by Jared Roe MD atorvastatin 80 mg PO BEDTIME 90 days buprenorphine-naloxone 8-2 mg 10 mg sublingual DAILY calcium carbonate-vitamin D3 600 mg-5 mcg (200 unit) 2 tabs PO DAILY linaclotide 145 mcg PO DAILY sodium,potassium,mag sulfates 17.5-3.13-1.6 gram (Suprep Bowel Prep Kit) DILUTE; drink 1/2 at 6-8 pm and half at 11 PM- 1AM HPI Comments Details: 48 YO Female is seen in consultation at the request of PCP for Osteoporosis. First diagnosed in osteopenia 2 yrs ag0 then progressed to osteoporosis. No history of pathologic fracture or ONJ. Has several servings of dietary calcium per day in the form of milk, cheese . Takes Calcium supplement ? mg daily in divided doses. Takes ? IU of Vitamin D daily. Denies ever using PPI, anticoagulant, antiepileptic or glucocorticoid medication. 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 UTD on dental cleanings and sees dentist every 6 months. No planned upcoming dental work or extractions. DXA dated 12/29/23:FINDINGS: INDINGS: LEFT FEMUR, NECK: Current: BMD 0.791 g/cm2, Z-score -0.9, T-score -1.8, osteopenia. Prior: BMD 0.798 g/cm2. Baseline: BMD 0.918 g/cm2. LEFT FEMUR, TOTAL: Current: BMD 0.713 g/cm2, Z-score -1.7, T-score -2.3, osteopenia, 8.1% decrease from previous, 13.2% decrease from baseline (<5% change is not significant). Prior: BMD 0.776 g/cm2. Baseline: BMD 0.821 g/cm2. AP SPINE L1-L3 (excluding L4): The data of L1-L4 has been changed to exclude the L4 vertebral body, because degenerative sclerosis at this level may cause overestimation of lumbar spine density. Current: BMD 0.851 g/cm2, Z-score -2.1, T-score -2.7, osteoporosis, 7.2% decrease from previous, 11.2% decrease from baseline (<5% change is not significant). Prior: BMD 0.917 g/cm2. Baseline: BMD 0.958 g/cm2. IDENTIFIED RISK FACTORS: Low calcium intake, current smoker. Early menopause, secondary osteoporosis, hysterectomy, bilateral oophorectomy. HISTORY OF FRACTURE: None listed. MEDICATIONS: Calcium/multivitamin. MM/XR DEXA axial skeleton IMPRESSION: 1. DIAGNOSIS: Osteoporosis based on the lowest T-score value of -2.7 in the lumbar spine applying World Health Organization criteria. Labs: [facility] Medical History Smoker Primary insomnia History of opioid abuse Pure hypercholesterolemia Surgical History History of cardiac catheterization History of shoulder surgery History of removal of cyst History of microdiscectomy S/P YU-BSO (total abdominal hysterectomy and bilateral salpingo-oophorectomy) (~2002) Family History Father Vascular disease Myocardial infarction Mother COPD (chronic obstructive pulmonary disease) Lung cancer Brother Myocardial infarction Sister Stroke Paternal Grandmother Stroke Other Substance abuse Social History Housing: Apartment Alcohol intake: former Patient Tobacco Use Status: Current everyday Tobacco user Tobacco use type: Cigarette Cigarette Packs Per Day: 1 Cigarettes Per Day: 20 e-Cigarette/Vaping Use: Never Used Second Hand Smoke Exposure: Yes service: No Current occupational status: employed Cognitive needs: No Hearing needs: Yes (Left ear hearing loss per pt) Vision needs: Yes Physical Exam There are no Cushingoid features. Absence of blue sclera. Absence of kyphosis. Thyroid gland is of nl size and weighs 15 gms. There are no thyroid nodules palpated. Lungs CTA. Heart S1 S2 Reg R/R Abdominal exam benign. Muscle strength 5/5 . Examination of spine reveals absence of tenderness on palpation Assessment & Plan Assessment & Plan (1) Osteoporosis: Code(s): M81.0 - Age-related osteoporosis without current pathological fracture Category: Medical Qualifiers: Osteoporosis type: unspecified Presence of current pathological fracture: without current pathological fracture Qualified Code(s): M81.0 - Age- related osteoporosis without current pathological fracture Plan: Is a 48-year-old white female with a history of low bone mass and recent diagnosis of osteoporosis. Partial secondary workup was negative. Patient is currently on calcium and vitamin-D supplementation Plan is to complete the secondary workup by checking a phosphorus and 24 hour urine for calcium and creatinine. Assuming above is normal could consider starting an anti resorptive like transdermal estrogen or Evista. Would avoid the use of bisphosphonate in this patient at age 48. We also talked about smoking cessation and weight-bearing exercise. I will see her back to after she makes an appointment with career guidance technician to discuss the use of transdermal estrogen Orders: Orders Phosphorus Today M81.0 - Age-related osteoporosis without current pathological fracture Creatinine, 24 Hr Group Today M81.0 - Age-related osteoporosis without current pathological fracture Calcium, 24 Hr Ur Today M81.0 - Age-related osteoporosis without current pathological fracture Coding Level of Care Code New Pt Level 4 (10504) Diagnoses Osteoporosis without current pathological fracture, unspecified osteoporosis type M81.0 Osteoporosis type: unspecified Presence of current pathological fracture: without current pathological fracture
== END 2024-03-06 15:51 | disposition home or self-care (01) ==
PROVIDERS: PCP Internal Medicine; Visit Provider Internal Medicine Endocrinology, Diabetes & Metabolism
DX: M81.0 Age-related osteoporosis without current pathological fracture (principal)
CPT/HCPCS: 99204

== ENCOUNTER → 2024-03-06 14:58 | Outpatient (BNVA) | payer BC, SELFPAY | PROVIDERS: PCP Internal Medicine; Visit Provider Internal Medicine Endocrinology, Diabetes & Metabolism ==

== ENCOUNTER 2024-03-19 06:15 | Outpatient (REF) | payer BC, SELFPAY ==
[2024-03-19 06:39] LABS: MANUAL DIFF FLAG NO
[2024-03-19 07:33] LABS: Basophils Absolute Auto 0.1 X10*3/uL (0.0-0.2); Basophils Percent Auto 0.8 % (0-2); Eosinophils Absolute Auto 0.2 X10*3/uL (0.0-0.4); Eosinophils Percent Auto 3.1 % (0-4); Hemoglobin 12.3 g/dl (12.0-16.0); Imm Gran Abs Auto 0.01 X10*3/uL (0.00-0.03); Imm Gran Pct Auto 0.2 % (0.0-0.4); Lymphocytes Absolute Auto 2.7 X10*3/uL (1.2-4.9); Lymphocytes Percent Auto 44.6 % (20-40); Mean Corpuscular HGB Conc 33.2 g/dl (31.0-35.0); Mean Corpuscular Hemoglobin 30.5 pg (27.0-33.0); Mean Corpuscular Volume 91.8 fL (80.0-98.0); Mean Platelet Volume 11.2 fL (9.4-12.3); Monocytes Absolute Auto 0.4 X10*3/uL (0.1-1.2); Monocytes Percent Auto 5.8 % (2-11); Neutrophils Absolute Auto 2.8 x10*3/uL (2.0-8.3); Neutrophils Percent Auto 45.5 % (45-73); Platelet Count 171 X10*3/uL (160-400); Red Blood Count 4.03 X10*6/uL (4.20-5.50); Red Cell Distribution Width 13.8 % (11.0-16.0); White Blood Count 6.1 X10*3/uL (4.8-10.8)
[2024-03-19 07:59] LABS: Alanine Aminotransferase 29 U/L (0-31); Albumin Level 4.3 g/dL (3.5-5.0); Alkaline Phosphatase 68 U/L (39-117); Anion Gap 10 (12-20); Aspartate Amino Transferase 39 U/L (5-31); Bilirubin Total 0.3 mg/dL (0.0-1.0); Blood Urea Nitrogen 16 mg/dL (9-16); Calcium 10.1 mg/dL (8.4-10.2); Carbon Dioxide 25 mmol/L (22-29); Chloride 106 mmol/L (96-108); Cholesterol 168 mg/dL (<200); Estimated Glomerular Filt Rate > 60; Glucose Fasting 98 mg/dL (60-99); HDL Cholesterol 61 mg/dL (>40); LDL Cholesterol Calculated 91 mg/dL (<100); Phosphorus 3.6 mg/dL (2.7-4.5); Potassium 4.2 mmol/L (3.3-5.1); Sodium 137 mmol/L (135-145); Total Protein 7.1 g/dL (6.5-8.0); Triglycerides 84 mg/dL (<150)
[2024-03-19 08:16] LABS: TSH reflex Free T4 3.81 uIU/mL (0.32-4.0)
== END 2024-03-19 06:16 | disposition home or self-care (01) ==
LOC: HO.LAB 06:15
PROVIDERS: Absent Provider Internal Medicine Endocrinology, Diabetes & Metabolism; PCP Internal Medicine; Visit Provider Internal Medicine
DX: D64.9 Anemia, unspecified (principal); E78.00 Pure hypercholesterolemia, unspecified; M81.0 Age-related osteoporosis without current pathological fracture
CPT/HCPCS: 36415; 80053; 80061; 84100; 84443; 85025

== ENCOUNTER 2024-03-20 10:49 | Outpatient (REF) | payer BC, SELFPAY ==
[2024-03-20 11:27] LABS: Creatinine, mg/dL 54.08
[2024-03-20 12:07] LABS: Creatinine, 24Hr Urine 0.8 G/Day (1.0-2.0); Total Volume 24 Hour Urine 1450 mL
[2024-03-21 20:22] LABS: Calcium, 24 Hr Urine 213 mg/24 h; Calcium/Creatinine Ratio 263 mg/g creat (30-275); Creatinine 24Hr Urine 0.81 g/24 h (0.50-2.15)
[2024-03-28 16:14] LABS: N-Telopeptide 43 (see note); NTXCreaRU 65 mg/dL (20-275)
== END 2024-03-20 10:50 | disposition home or self-care (01) ==
LOC: HO.LNP 10:49
PROVIDERS: Internal Medicine; Visit Provider Internal Medicine Endocrinology, Diabetes & Metabolism
DX: M81.0 Age-related osteoporosis without current pathological fracture (principal)
CPT/HCPCS: 82340; 82523; 82570

== ENCOUNTER 2024-03-29 09:27 | Outpatient (AMB) | payer BC, SELFPAY ==
--- NOTE | 2024-03-29 00:14 | MHC.OFFVIS ---
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 No Prostate Cancer? No Patient Symptoms: Patient states she is having lower back pain, but she does have a history of back pain. Patch Setter Required: No Accompanied by: Self / Same As Patient Allergies penicillin V Adverse Reaction (Unknown, Verified 03/29/24 09:28) Vomiting, diarrhea, Vommiting, diarrhea Penicillins [PENICILLINS] Adverse Reaction (Unknown, Verified 03/29/24 09:28) VOMITING, DIARRHEA, SWEATING Medication List - Last Reconciled 03/29/24 by Maile Cr MD atorvastatin 80 mg PO BEDTIME 90 days buprenorphine-naloxone 8-2 mg 10 mg sublingual DAILY calcium carbonate-vitamin D3 600 mg-5 mcg (200 unit) 2 tabs PO DAILY linaclotide 145 mcg PO DAILY sodium,potassium,mag sulfates 17.5-3.13-1.6 gram (Suprep Bowel Prep Kit) DILUTE; drink 1/2 at 6-8 pm and half at 11 PM- 1AM HPI Comments Details: 03/29/24-Korin is a 48-year-old female who is for evaluation due to left kidney stone 2.4 cm. The patient complains of abdominal pain and is being followed by GI. Korin is on Suboxone history of opioid and alcohol disorder. Comorbidity nicotine use. Pt complains of Discussed ESWL. 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 [facility] Medical History Smoker Primary insomnia History of opioid abuse Pure hypercholesterolemia Surgical History History of cardiac catheterization History of shoulder surgery History of removal of cyst History of microdiscectomy S/P YU-BSO (total abdominal hysterectomy and bilateral salpingo-oophorectomy) (~2002) Family History Father Vascular disease Myocardial infarction Mother COPD (chronic obstructive pulmonary disease) Lung cancer Brother Myocardial infarction Sister Stroke Paternal Grandmother Stroke Other Substance abuse Social History Housing: Apartment Alcohol intake: former Patient Tobacco Use Status: Current everyday Tobacco user Tobacco use type: Cigarette Cigarette Packs Per Day: 1 Cigarettes Per Day: 20 e-Cigarette/Vaping Use: Never Used Second Hand Smoke Exposure: Yes service: No Current occupational status: employed Cognitive needs: No Hearing needs: Yes (Left ear hearing loss per pt) Vision needs: Yes Review of Systems Const All systems reviewed & are unremarkable except as noted in HPI and below Reports no additional complaints Eyes Reports no additional complaints ENT Reports no additional complaints Card Reports no additional complaints Resp Reports no additional complaints GI Reports no additional complaints Reports as per HPI Musc Reports no additional complaints Skin/Breast Reports system reviewed and no additional complaints, except as documented Neuro Reports no additional complaints Psych Reports no additional complaints Endo Reports no additional complaints Joseluis/Lymph Reports no additional complaints Aller/Immun Reports no additional complaints Physical Exam Const General: cooperative, healthy appearing and no acute distress Orientation/consciousness: patient oriented x3 HEENT Head: Yes normal to inspection, Yes normocephalic and Yes atraumatic Eyes Conjunctivae: conjunctivae normal Neck Neck: Yes normal visual inspection and Yes trachea midline Chest Chest palpation & inspection: normal inspection of the chest Resp Effort & Inspection: normal respiratory effort Cardio Rate: regular rate GI Inspection: Yes normal to inspection Neuro General: patient oriented x3 Extrem General: No edema Psych Appearance: grossly normal Results AMB Urinalysis, Automated UA Leukoctes 0 Nela/uL Last Edit by Aaliyah Wright CMA on 03/29/24 09:49 UA Nitrite Last Edit by Aaliyah Wright CMA on 03/29/24 09:49 UA Urobilinogen 0.2 mg/dL Last Edit by Aaliyah Wright CMA on 03/29/24 09:49 UA Protein 0 mg/dL Last Edit by Aaliyah Wright CMA on 03/29/24 09:49 UA pH 6.0 Last Edit by Aaliyah Wright, DAVE on 03/29/24 09:49 UA Blood 0 Maxi/uL Last Edit by Aaliyah Wright, DAVE on 03/29/24 09:49 UA Specific [place] 1.020 Last Edit by Aaliyah Wright, DAVE on 03/29/24 09:49 UA Ketone Negative Last Edit by Aaliyah Wright CMA on 03/29/24 09:49 UA Bilirubin 0 mg/dL Last Edit by Aaliyah Wright, DAVE on 03/29/24 09:49 UA Glucose 0 mg/dL Last Edit by Aaliyah Wright CMA on 03/29/24 09:49 Results Reviewed Results Reviewed: Laboratory Last Values Urine pH (Auto) 6.0 03/29/24 09:29 Specific [place] (Auto) 1.020 03/29/24 09:29 Urine Protein (Auto) 0 mg/dL 03/29/24 09:29 Glucose (UA)(Auto) 0 mg/dL 03/29/24 09:29 Urine Ketones (Auto) Negative 03/29/24 09:29 Urine Blood (Auto) 0 Maxi/uL 03/29/24 09:29 Urine Bilirubin (Auto) 0 mg/dL 03/29/24 09:29 Urine Urobilinogen (Auto) 0.2 mg/dL 03/29/24 09:29 Leukocyte Esterase (Auto) 0 Nela/uL 03/29/24 09:29 Date of Service: 01/02/24 CT ABDOMEN AND PELVIS WITH CONTRAST CLINICAL INFORMATION: Upper abdominal pain, question pancreatitis COMPARISON: 10/22/2015 CT TECHNIQUE: Multidetector volumetric images were obtained from the superior aspect of the liver through the pubic symphysis following administration 85 mL of Omnipaque 350 intravenous contrast. Sagittal and coronal reformatted images were obtained on the technologist's workstation. Oral contrast: No This CT examination was performed using dose optimization techniques as appropriate, variously including the following: *Automated exposure control *Adjustment of mA and/or kV according to patient size (this includes techniques or standardized protocols for targeted exams where dose is matched to indication/reason for exam; i.e. extremities or head) *Use of iterative reconstruction technique DLP: 338 mGy-cm FINDINGS: CRIMINAL LEGAL ASSISTANT: Left upper quadrant calcification LUNG BASES: Atelectasis.- LIVER, GALLBLADDER, AND BILIARY TREE: The liver is normal in size, shape, and attenuation. No focal hepatic lesion. Mild intrahepatic biliary ductal dilatation. Prominent common bile duct to 7 mm in the noncholecystectomy state. Associated pancreatic ductal dilatation. Findings appear more prominent than on 2016 nonenhanced study. PANCREAS: Pancreatic ductal dilatation to the tail, measuring 4 mm in the head. SPLEEN: Unremarkable. ADRENAL GLANDS: Unremarkable. KIDNEYS AND URETERS: The kidneys are normal in size, shape, and attenuation. No hydronephrosis or hydroureter. No perinephric stranding. 2.4 cm nonobstructing left upper pole staghorn calculus. Tiny nonobstructing right upper and left lower pole renal calculi. BLADDER: Decompressed bladder. GASTROINTESTINAL TRACT: Decompressed stomach, wall thickening not excluded. Evaluation of the bowel limited without all oral contrast. Unremarkable appendix. It is difficult to trace the lower GI tract without IV contrast but there is moderate fecal retention of the descending colon and a segment of dilated air-filled sigmoid colon measuring 5 cm. Concern for region of rectosigmoid narrowing and hyperattenuation in the left hemipelvis, coronal 5:53. ABDOMINAL WALL: No significant hernia is appreciated. LYMPH NODES: Normal. VASCULAR: Atherosclerotic calcifications of the aneurysmal aorta. Normal caliber inferior vena cava. Patent portal system. PELVIC VISCERA: Small amount of free pelvic fluid. OSSEOUS STRUCTURES: Minimal retrolisthesis L4 on L5. Degenerative changes, L4-5 and L5-S1 disc space narrowings. Redemonstration L5-S1 calcified disc bulge resulting in compression of the anterior left sided thecal sac and bilateral neuroforaminal encroachment. IMPRESSION: 1. Intrahepatic and extrahepatic biliary ductal dilatation and pancreatic ductal dilatation. Consider MRCP. 2. Bilateral nonobstructing renal calculi, largest 2.4 cm left upper pole staghorn calculus. 3. Question rectosigmoid narrowing and hyperattenuation. Consider colonoscopy. 4. Small amount of free pelvic fluid. Assessment & Plan Assessment & Plan (1) Kidney stone: Code(s): N20.0 - Calculus of kidney Category: Medical (2) Staghorn calculus: Code(s): N20.0 - Calculus of kidney Category: Medical (3) Bilateral kidney stones: Code(s): N20.0 - Calculus of kidney Category: Medical Plan Left ESWL Orders: Orders AMB Urinalysis Automated 03/29/24 Z13.9 - Encounter for screening, unspecified Patient Instructions: The patient had an opportunity to ask questions regarding treatment plan. The patient expressed understanding and agreement with the above treatment plan. The patient is aware they should contact our office by phone for worsening of their current condition or the appearance of new symptoms. Compliance is encouraged with any medications and followup testing that is ordered. It is a privilege to be allowed the opportunity to participate in the urologic care of your patient. If you have any questions or concerns regarding treatment for the above conditions please do not hesitate to contact me. The office telephone contact is [phone]. This note is constructed in part using voice recognition software. While every effort has been made to ensure accuracy flake miller helper errors may have been included. Yours sincerely, Maile Cr MD Coding Level of Care Code New Pt Level 4 (68770) Diagnoses Kidney stone N20.0 Staghorn calculus N20.0 Bilateral kidney stones N20.0
== END 2024-03-29 10:26 | disposition home or self-care (01) ==
PROVIDERS: PCP Internal Medicine; Visit Provider Urology
DX: Z13.9 Encounter for screening, unspecified (principal)
CPT/HCPCS: 99204

== ENCOUNTER 2024-05-07 17:21 | Outpatient (AMB) | payer BC, SELFPAY ==
--- NOTE | 2024-05-07 17:21 | MHC.PC.OV ---
Vital Signs 05/07/24 17:22 Height 5 ft 7 in Weight 117 lb 4 oz BMI 18.4 BP 110/80 Blood Pressure Location Lt brachial Position Sitting Pulse 78 Pulse Source Pulse Oximeter Pulse Oximetry (%) 97 Oxygen Delivery Method Room Air Intake Visit Reasons: Annual PE shailesh 01/29 Director It Project Required: No Accompanied by: Self / Same As Patient Allergies penicillin V Adverse Reaction (Unknown, Verified 05/07/24 17:48) Vomiting, diarrhea, Vommiting, diarrhea Penicillins [PENICILLINS] Adverse Reaction (Unknown, Verified 05/07/24 17:48) VOMITING, DIARRHEA, SWEATING Medication List - Last Reconciled 05/07/24 by David Frost MD atorvastatin 80 mg PO BEDTIME 90 days buprenorphine-naloxone 8-2 mg 10 mg sublingual DAILY calcium carbonate-vitamin D3 600 mg-5 mcg (200 unit) 2 tabs PO DAILY linaclotide (Linzess) 145 mcg PO DAILY sodium,potassium,mag sulfates 17.5-3.13-1.6 gram (Suprep Bowel Prep Kit) DILUTE; drink 1/2 at 6-8 pm and half at 11 PM- 1AM varenicline 0.5 mg PO BID 3 days varenicline 1 mg PO BID 28 days varenicline 0.5 mg PO DAILY 3 days Tobacco use date assessed: 05/07/24 Dental Screening Dental Screen Date: 05/07/24 Did you have a dental visit in the last 12 months?: Yes Did you have a dental problem in the last 6 months where you did not have access to dental care?: No Was dental information given to patient?: Patient has dentist HPI Annual PE shailesh 01/29 HPI Details Patient comes in today for her annual physical examination States that she feels okay She denies any headaches or dizziness Denies any chest pains, no increased shortness of breath No nausea/vomiting, no abdominal pain No change in bowel habits noted She denies any acute urinary symptoms She had her follow-up labs done last month - to discuss her results She is up-to-date with her annual mammography and bone density screening - both were done in November 2023 She had a complete hysterectomy years ago so she no longer needs to have routine gynecology exams and Pap smears done She is scheduled for screening colonoscopy EGD in June [address] Cuevas Patient is also requesting to be started back on generic Chantix to help her quit smoking [facility] Medical History Smoker Primary insomnia History of opioid abuse Pure hypercholesterolemia Surgical History History of cardiac catheterization History of shoulder surgery History of removal of cyst History of microdiscectomy S/P YU-BSO (total abdominal hysterectomy and bilateral salpingo-oophorectomy) (~2002) Family History Father Vascular disease Myocardial infarction Mother COPD (chronic obstructive pulmonary disease) Lung cancer Brother Myocardial infarction Sister Stroke Paternal Grandmother Stroke Other Substance abuse Social History Housing: Apartment Alcohol intake: former Patient Tobacco Use Status: Current everyday Tobacco user Tobacco use type: Cigarette Cigarette Packs Per Day: 1 Cigarettes Per Day: 20 e-Cigarette/Vaping Use: Never Used Second Hand Smoke Exposure: Yes service: No Current occupational status: employed Cognitive needs: No Hearing needs: Yes (Left ear hearing loss per pt) Vision needs: Yes Questionnaire PHQ-9 Over the last 2 weeks, how often have you been bothered by any of the following problems? 1. Little interest or pleasure in doing things: not at all 2. Feeling down, depressed, or hopeless: not at all 3. Trouble falling or staying asleep, or sleeping too much: not at all 4. Feeling tired or having little energy: not at all 5. Poor appetite or overeating: not at all 6. Feeling bad about yourself - or that you are a failure or have let yourself or your family down: not at all 7. Trouble concentrating on things, such as reading the newspaper or watching television: not at all 8. Moving or speaking so slowly that other people could have noticed. Or the opposite - being so fidgety or restless that you have been moving around a lot more than usual: not at all 9. Thoughts that you would be better off or of hurting yourself in some way: not at all Total score: 0 Depression Screening Interpretation: Negative Depression Screening Done: Yes [id number] - PHQ-9 Billing: Yes Source: Developed by Drs. Jared Lyn, Darby Echeverria, Adam Casiano and colleagues, with an educational tania from [employer]. Thrive Questionnaire Date Thrive assessed: 05/07/24 I am a: Patient What is your living situation today?: I have a steady place to live Within the past 12 months, did the food you bought not last and you didn't have the money to get more?: I choose not to answer this question Within the past 12 months, did you worry whether your food would run out before you got money to buy more?: I choose not to answer this question Do you have trouble paying for medicines?: Yes Do you have trouble getting transportation to medical appointments?: No Do you have trouble paying your heating and electricity bill?: No Do you have trouble taking care of your child, family member or friend?: No Do you have trouble with day-to-day activities such as bathing, preparing meals, shopping, managing finances, etc.?: No Are you currently unemployed and looking for a job?: No Are you interested in more education?: No Please select the resources that you would like help with: None Currently or been in a relationship where the following occur: No concerns reported THRIVE Score: 0 AUDIT C Alcohol Use Questionnaire (AUDIT-C) 1. How often do you have a drink containing alcohol?: Never 3. How often do you have six or more drinks on one occasion?: Never Total Score: 0 Score Reviewed/Action Taken: Yes ALEN-7 AMB Questionnaire ALEN-7 Date ALEN - 7 assessed: 05/07/24 Feeling nervous, anxious, or on edge: 0 = Not at all Not being able to stop or control worryin = Not at all Worrying too much about different things: 0 = Not at all Trouble relaxin = Not at all Being so restless that it is hard to sit still: 1 = Several days Becoming easily annoyed or irritable: 0 = Not at all Feeling afraid as if something awful might happen: 0 = Not at all Total ALEN-7 score (0-4 normal; 5-9 mild; 10-14 moderate; 15-21 severe): 1 Source: Developed by Darby Bennett Kurt Kroenke and colleagues, with an educational tania from [employer]. Review of Systems Const Denies chills, Denies fatigue, Denies fever(s), Denies headache(s) and Denies malaise Eyes Denies blurry vision, Denies change in vision, Denies irritation and Denies itchy eyes ENT Denies dysphagia, Denies dizziness, Denies otalgia, Denies headache(s), Denies nasal congestion, Denies neck pain, Denies odynophagia, Denies sinus pain and Denies sore throat Card Denies chest pain, Denies rapid heart rate, Denies irregular heart rhythm, Denies palpitations and Denies dyspnea Resp Denies chest congestion, Denies cough, Denies dyspnea and Denies wheezing GI Denies abdominal pain, Denies bloating, Denies constipation, Denies dysphagia, Denies heartburn, Denies diarrhea, Denies nausea, Denies odynophagia and Denies vomiting Denies hematuria, Denies urinary frequency, Denies dysuria, Denies urinary incontinence and Denies urinary urgency Musc Denies back pain, Denies arthralgias, Denies joint swelling, Denies muscle weakness and Denies neck pain Skin/Breast Denies breast pain, Denies breast mass, Denies change in pigmentation, Denies lesions, Denies rash and Denies unusual bruising Neuro Denies dizziness, Denies headache(s) and Denies paresthesias Psych Denies anxiety and Denies depression Endo Denies fatigue and Denies palpitations Joseluis/Lymph Denies easy bruising Aller/Immun Denies itchy eyes and Denies wheezing Physical exam (Primary Care) Vital Signs: Last Vital Signs Pulse 78 05/07/24 17:22 BP 110/80 05/07/24 17:22 Pulse Ox 97 05/07/24 17:22 Oxygen Delivery Method Room Air 05/07/24 17:22 BMI result Body Mass Index 18.4 Tobacco/Smoking Status: Tobacco use Status Tobacco use date assessed 05/07/24 05/07/24 17:25 Patient Tobacco Use Status Current everyday Tobacco 05/07/24 17:25 Tobacco use type Cigarette 05/07/24 17:25 e-Cigarette/Vaping Use Never Used 05/07/24 17:25 PHQ-9: PHQ-9 Score PHQ-9: Total score 0 05/07/24 17:48 Depression Screening Interpretation: Negative Thrive Assessment: Date of Thrive Assessment Date Thrive assessed 05/07/24 05/07/24 17:25 Currently or been in a relationship where the following occur: No concerns reported Const General: no acute distress, alert and awake Orientation/consciousness: patient oriented x3 [facility] Head: Yes normocephalic and Yes atraumatic Ears: external ears normal, TM's normal bilaterally and EAC's normal General nose exam: No nasal discharge present Face and sinus: Yes normal facial exam and Yes sinuses nontender Teeth and gingiva: dentition normal Throat: Yes posterior oropharynx normal and Yes tonsils normal (no TP congestion) Eyes Eyelids: Yes eyelids normal Conjunctivae: conjunctivae normal Pupils: Equal, round and reactive pupils present EOM: EOMs intact bilaterally Neck Neck: Yes supple and No lymphadenopathy Thyroid: Thyroid normal Resp Auscultation: clear to auscultation bilaterally, no rales and no wheezes Cardio Rate: regular rate Rhythm: regular rhythm Heart sounds: no murmurs GI Palpation (GI): Soft to palpation, nontender and No hepatosplenomegaly present Auscultation: normal bowel sounds General: Yes no CVA tenderness Back/Spine/Pelvis Back: no CVA tenderness Thoracic/Lumbar Spine: thoracic and lumbar spine normal to inspection Skin Lesions: no lesions Rashes: no rashes Neuro General: patient oriented x3, moves all extremities, no focal motor deficits and CN's II-XI intact bilaterally Cranial nerves: Yes Equal, round and reactive pupils present Cognition (Neuro): normal cognition Gait exam (Neuro): Normal gait present Extrem General: Yes no clubbing, cyanosis or edema Results Reviewed Results Reviewed: Laboratory Tests 03/19/24 03/20/24 03/29/24 06:38 08:10 09:29 WBC 6.1 Hgb 12.3 Hct 37.0 Plt Count 171 Sodium 137 Potassium 4.2 Creatinine 0.72 Estimated GFR > 60 Fasting Glucose 98 Calcium 10.1 Phosphorus 3.6 AST 39 H ALT 29 Triglycerides 84 Cholesterol 168 LDL Cholesterol, Calc 91 HDL Cholesterol 61 N-Telopeptide X-linked 43 TSH 3.81 Specific [place] (Auto) 1.020 Urine Protein (Auto) 0 Glucose (UA)(Auto) 0 Urine Ketones (Auto) Negative Urine Blood (Auto) 0 Urine Bilirubin (Auto) 0 Urine Urobilinogen (Auto) 0.2 Leukocyte Esterase (Auto) 0 Coding Level of Care Code Est Pt Prev Care 40-64y(27446) Diagnoses Annual physical exam Z00.00 Osteoporosis without current pathological fracture, unspecified osteoporosis type M81.0 Osteoporosis type: unspecified Presence of current pathological fracture: without current pathological fracture Staghorn calculus N20.0 Common bile duct dilation K83.8 Pure hypercholesterolemia E78.00 History of opioid abuse F11.11 Drug-induced constipation K59.03 Constipation type: drug induced constipation Primary insomnia F51.01 Smoker F17.200 Additional Codes PHQ-9 - 29650 - PHQ-9 Billing: Yes ([id number]) Assessment & Plan Assessment & Plan (1) Annual physical exam: Code(s): Z00.00 - Encounter for general adult medical examination without abnormal findings Category: Medical Plan: Results of her labs done last month reviewed and discussed with patient She is up-to-date with her annual mammography and bone density screening - both were done in November 2023 She had a complete hysterectomy years ago so she no longer needs to have routine gynecology exams and Pap smears done She is scheduled for screening colonoscopy EGD in June [address] Cuevas (2) Osteoporosis: Code(s): M81.0 - Age-related osteoporosis without current pathological fracture Category: Medical Qualifiers: Osteoporosis type: unspecified Presence of current pathological fracture: without current pathological fracture Qualified Code(s): M81.0 - Age-related osteoporosis without current pathological fracture Plan: Her most recent BMD done a couple of months ago on 12/29/2023 revealed (+) osteoporosis based on the lowest T-score value of -2.7 in the lumbar spine This represents about an 8% decline in her BMD from a couple of years ago in 2021, when her T-score was -2.1 Patient relates that she had a complete hysterectomy done years ago when she was young and this may be the main reason for her advanced osteoporosis Her urine NTx came back normal She was referred to and seen by endocrinology back in February 2024 - was advised to speak to and see her outside residential sales professional to discuss option of transdermal estrogen She was sent for additional workups by Endocrinology and recommedation is to consider starting her on an anti-resorptive Tx like transdermal estrogen or Evista. Would avoid the use of bisphosphonate in this patient at age 48. Follow up with endocrinology as scheduled (3) Staghorn calculus: Code(s): N20.0 - Calculus of kidney Category: Medical Plan: She also had bilateral nonobstructing renal calculi, the largest at 2.4 cm at the left upper pole - staghorn calculus Follow up with urology as scheduled (4) Common bile duct dilation: Code(s): K83.8 - Other specified diseases of biliary tract Category: Medical Plan: Abdominal and pelvic CT done at the ER a few months ago revealed (+) intrahepatic and extrahepatic biliary ductal dilatation and pancreatic ductal dilatation She underwent an abdominal MRI done in February 2024, which revealed diffuse abnormal dilatation of the common bile duct measuring up to 8.0 mm in diameter without filling defects and mild dilatation of the pancreatic duct. These findings could be due to duodenal papillary stenosis or sphincter of Giles dyskinesia. Also noted mild hepatomegaly and marked diffuse fecal distention of the ascending and transverse colon She has been seen by Dr. Cuevas and is now scheduled for EGD and colonoscopy in June 2024 (5) Pure hypercholesterolemia: Code(s): E78.00 - Pure hypercholesterolemia, unspecified Category: Medical Plan: Reinforced low cholesterol diet Continue Atorvastatin 80 mg QD Will recheck her labs and fasting lipids in 4 months for follow up (6) History of opioid abuse: Code(s): F11.11 - Opioid abuse, in remission Category: Medical Plan: Continue Suboxone 8-2 mg 10 mg? sublingually once a day Follow-up with the Suboxone clinic as scheduled (7) Constipation: Code(s): K59.00 - Constipation, unspecified Category: Medical Qualifiers: Constipation type: drug induced constipation Qualified Code(s): K59.03 - Drug induced constipation Plan: This is most likely related to her Suboxone Tx She is again encouraged to increase her oral fluids and dietary fiber Continue OTC Senna PRN and Miralax 17 gm QD (8) Primary insomnia: Code(s): F51.01 - Primary insomnia Category: Medical Plan: Sleep hygiene reinforced (9) Smoker: Code(s): F17.200 - Nicotine dependence, unspecified, uncomplicated Category: Social Hx Plan: Patient is counseled again on smoking cessation Per request, will start her again on Varenicline to help her quit smoking completely Plan Follow up in 4 months Orders: Orders Comprehensive [place]. Panel Fast 4 Months E78.00 - Pure hypercholesterolemia, unspecified Lipid Panel 4 Months E78.00 - Pure hypercholesterolemia, unspecified Medications: New varenicline administer on days 4, 5, and 6 of therapy 0.5 mg PO BID 3 days 6 tabs 0RF varenicline 1 mg PO BID 28 days 56 tabs 3RF varenicline administer on days 1, 2, and 3 of therapy 0.5 mg PO DAILY 3 days 3 tabs 0RF
[2024-05-07 17:22] VITALS: BP 110/80; PULSE 78; O2SAT 97; BMI 18.4
== END 2024-05-07 17:53 | disposition home or self-care (01) ==
PROVIDERS: PCP Internal Medicine; Visit Provider Internal Medicine
DX: Z00.00 Encounter for general adult medical examination without abnormal findings (principal); M81.0 Age-related osteoporosis without current pathological fracture; F11.11 Opioid abuse, in remission; N20.0 Calculus of kidney; K83.8 Other specified diseases of biliary tract; E78.00 Pure hypercholesterolemia, unspecified; K59.03 Drug induced constipation; F51.01 Primary insomnia; F17.200 Nicotine dependence, unspecified, uncomplicated

== ENCOUNTER → 2024-05-07 17:21 | Outpatient (BNVA) | payer BC, SELFPAY | PROVIDERS: PCP Internal Medicine; Visit Provider Internal Medicine | DX: Z00.00 Encounter for general adult medical examination without abnormal findings (principal); M81.0 Age-related osteoporosis without current pathological fracture; N20.0 Calculus of kidney; K83.8 Other specified diseases of biliary tract; E78.00 Pure hypercholesterolemia, unspecified; K59.03 Drug induced constipation; T50.905D Adverse effect of unspecified drugs, medicaments and biological substances, subsequent encounter; F51.01 Primary insomnia; F11.20 Opioid dependence, uncomplicated; F17.210 Nicotine dependence, cigarettes, uncomplicated; Z79.899 Other long term (current) drug therapy | CPT/HCPCS: 96127 ==

== ENCOUNTER 2024-05-22 07:18 | Day surgery (SDC) | payer BC, SELFPAY ==
[2024-05-20 11:03] VITALS: BMI 18.3
--- NOTE | 2024-05-21 12:00 | P.CONAN_ITS ---
Documented by User: Rosalinda Carpenter NP 05/21/24 12:01 HPI - Anesthesia Eval Consult details Narrative: 49yo F for Left Lithotripsy ESW Suboxone 10mg daily PMFSH Active Problems Active Problems: All Active Problems Bilateral kidney stones (Acute) Kidney stone (Acute) Osteoporosis (Acute) Staghorn calculus (Acute) Common bile duct dilation (Acute) COVID-19 (Acute) Colon cancer screening (Acute) Annual physical exam (Acute) Pain in lateral portion of right knee (Acute) Constipation (Acute) Skin tags, multiple acquired (Acute) Osteopenia (Acute) Breast cancer screening (Acute) Ingrown nail of great toe of right foot (Acute) Premature surgical menopause (Acute ~2002) Otitis externa (Acute) Smoker (Acute) Primary insomnia (Acute) History of opioid abuse (Acute) Pure hypercholesterolemia (Acute) Past Medical History Medical History (Updated 05/22/24 @ 08:22 by Tegan Hua RN) Seizure Smoker Primary insomnia History of opioid abuse Pure hypercholesterolemia Family History Family History Father Vascular disease Myocardial infarction Mother COPD (chronic obstructive pulmonary disease) Lung cancer Brother Myocardial infarction Sister Stroke Paternal Grandmother Stroke Other Substance abuse Surgical History Surgical History (Updated 05/22/24 @ 08:23 by Tegan Hua RN) H/O adenoidectomy History of cardiac catheterization History of shoulder surgery History of removal of cyst History of microdiscectomy S/P YU-BSO (total abdominal hysterectomy and bilateral salpingo-oophorectomy) (~2002) Social History Social History Housing: Apartment Alcohol intake: former Patient Tobacco Use Status: Current everyday Tobacco user Tobacco use type: Cigarette Cigarette Packs Per Day: 0.5 Cigarettes Per Day: 10.0 e-Cigarette/Vaping Use: Never Used Second Hand Smoke Exposure: Yes Use of substances other than those prescribed or required for medical reasons: No Are you DNR?: No Advance Directives: No Advance Directives Information Provided: Yes Recently lost weight without trying: No Nutrition Risks: No Nutritional Risk Patient : No service: No Current occupational status: employed Cognitive needs: No Hearing needs: Yes (Left ear hearing loss per pt) Vision needs: Yes Meds Allergies Allergy/AdvReac Type Severity Reaction Status Date / Time Penicillins [PENICILLINS] AdvReac Intermediate vomiting/di Verified 05/20/24 11:00 arrhea/diap horesis Home Medications ?Medication ?Instructions ?Recorded ?Confirmed ?Last Taken ?Type buprenorphine 8 mg-naloxone 2 mg 8 mg sublingual DAILY 03/06/20 05/22/24 05/22/24 06:00 History sublingual film calcium 600 mg (as 2 tab PO DAILY 01/22/24 05/20/24 Unknown History carbonate)-vitamin D3 5 mcg (200 unit) tablet Exam Height,Weight and Vital Signs: Height 5 ft 7 in Weight 53.07 kg Pertinent Lab Results Pertinent Lab Results: Laboratory Tests 03/19/24 06:38 WBC 6.1 Hgb 12.3 Hct 37.0 Plt Count 171 Sodium 137 Potassium 4.2 Chloride 106 Carbon Dioxide 25 BUN 16 Creatinine 0.72 Narrative Narrative: EKG 12/2023 Vent. Rate : 070 BPM Atrial Rate : 070 BPM P-R Int : 164 ms QRS Dur : 078 ms QT Int : 404 ms P-R-T Axes : 081 052 051 degrees QTc Int : 436 ms Normal sinus rhythm Normal ECG When compared with ECG of 09-OCT-2023 14:15, No significant change was found Assessment and Plan Assessment Anesthesia Assessment: Chart Reviewed Documented by User: Jj Johnson MD 05/22/24 10:55 [facility] Past Medical History Medical History (Updated 05/22/24 @ 08:22 by Tegan Hua RN) Seizure Smoker Primary insomnia History of opioid abuse Pure hypercholesterolemia Patient : No Family History Family History Father Vascular disease Myocardial infarction Mother COPD (chronic obstructive pulmonary disease) Lung cancer Brother Myocardial infarction Sister Stroke Paternal Grandmother Stroke Other Substance abuse Family history of problems with anesthesia: No Surgical History Surgical History (Updated 05/22/24 @ 08:23 by Tegan Hua RN) H/O adenoidectomy History of cardiac catheterization History of shoulder surgery History of removal of cyst History of microdiscectomy S/P YU-BSO (total abdominal hysterectomy and bilateral salpingo-oophorectomy) (~2002) History of Problems with Anesthesia: No Social History Social History Housing: Apartment Alcohol intake: former Patient Tobacco Use Status: Current everyday Tobacco user Tobacco use type: Cigarette Cigarette Packs Per Day: 0.5 Cigarettes Per Day: 10.0 e-Cigarette/Vaping Use: Never Used Second Hand Smoke Exposure: Yes Use of substances other than those prescribed or required for medical reasons: No Are you DNR?: No Advance Directives: No Advance Directives Information Provided: Yes Recently lost weight without trying: No Nutrition Risks: No Nutritional Risk Patient : No service: No Current occupational status: employed Cognitive needs: No Hearing needs: Yes (Left ear hearing loss per pt) Vision needs: Yes Meds Allergies Allergy/AdvReac Type Severity Reaction Status Date / Time Penicillins [PENICILLINS] AdvReac Intermediate vomiting/di Verified 05/20/24 11:00 arrhea/diap horesis Home Medications ?Medication ?Instructions ?Recorded ?Confirmed ?Last Taken ?Type buprenorphine 8 mg-naloxone 2 mg 8 mg sublingual DAILY 03/06/20 05/22/24 05/22/24 06:00 History sublingual film calcium 600 mg (as 2 tab PO DAILY 01/22/24 05/20/24 Unknown History carbonate)-vitamin D3 5 mcg (200 unit) tablet Exam Airway Mallampati Class: I TM Dist: >3cm Neck ROM: Full Partial: Lower Loose/Missing/Broken Teeth: Yes and Lower Heart: ok Lungs: ok Assessment and Plan Assessment Anesthesia Assessment: Anesthesia Plan Discussed Final Anesthetic Review Family History of Problems with Anesthesia: No History of Problems with Anesthesia: No NPO: Yes ASA Class: III Final Preanesthetic Review: No Changes in Pt Med Stat, Meds/Allgs Chart Reviewed, Consent Obtained/Reviewed and Anes Risks/Benef Reviewed Patient Risk: Intermediate Procedure Risk: Low Anesthetic Plan Anesthetic Plan: GA and Agree w/ Assess. and Plan Disposition: Standard PACU
--- NOTE | ~2024-05-22 | XR_ITS ---
EXAMINATION: XR ABDOMEN KUB CLINICAL INDICATION: pre left ESWL COMPARISON: Abdomen 02/27/2024 TECHNIQUE: AP view of the abdomen. FINDINGS: A 1.6 cm large calcified calculi upper pole calyx left kidney. Moderate stool is seen in the colon without distention. The small bowel loops are normal. There is no organomegaly. There is moderate degenerative disc changes L4-5 disc level. XR/XR KUB IMPRESSION: Moderate constipation. Large radiopaque calculi upper pole calyx left kidney. Electronically signed by: Salazar Camarena MD 05/22/2024 08:02 AM EST
[2024-05-22 08:26] VITALS: BMI 18.4
[2024-05-22 08:40] VITALS: BP 116/53; PULSE 66; RESP 16; TEMP 36.3; O2SAT 98
[2024-05-22] MEDS: Lactated Ringers 1,000 ML 100 ML IVCONT (08:58)
[2024-05-22] MEDS: Ciprofloxacin Lactate/D5W 400 MG/200 ML PIGGYBACK 200 MG IV (09:04)
--- NOTE | 2024-05-22 10:21 | PC.NURSE ---
site of iv insertion redness noted after antibiotics given. no other symptoms per patient. no sob or resp distress. no rash noted. cont to monitor.no swelling noted to right lower arm.
--- NOTE | 2024-05-22 10:50 | MHC.SHP ---
Pre-Procedural Eval Section A - 24 Hr Update-Section A only Date of Service: 05/22/24 The patient is an INPATIENT: No The patient has been examined within 24 hours of the surgical procedure. The History & Physical has been completed within 30 days and I have reviewed it.: Yes Section B - Complete if H&P > 30 days Chief Complaint: Calculus of kidney Allergies: Allergies Allergy/AdvReac Type Severity Reaction Status Date / Time Penicillins [PENICILLINS] AdvReac Intermediate vomiting/di Verified 05/20/24 11:00 arrhea/diap horesis Plan Diagnosis/Plan: Unchanged I have reviewed the history and physical and performed a pertinent physical examination on my patient. No changes have occurred unless specified. Left ESWL. Discussed risks to include but not limited to, blood in the urine, bruising to the skin, kidney hematoma, possible need for another procedure if a stone fragment obstructs the ureter while passing, possible need to repeat procedure if stone is not completely fragmented. Time Spent With Patient Time: Total time managing care of this patient today ____ minutes.
[2024-05-22 11:56] VITALS: BP 117/50; PULSE 64; RESP 16; TEMP 36.1; O2SAT 98
--- NOTE | 2024-05-22 11:56 | W.PM.OPN ---
Operative Note Operative Note Date of Service: 05/22/24 Narrative: PreOperative Diagnosis:? ? Left Renal stone Post Operative Diagnosis:?Left? Renal stone Procedure:?Left? ESWL Surgeon:?Dr Maile Cr Anesthesia:? General Indications for procedure: The patient understands there is a risk of bruising or hematoma to the kidney, infection, and stone migration following the procedure and subsequent intervention may be required.? - Imaging 14mm x 20mm stone Procedure: After informed consent was verified the patient was brought to the operating room and placed in a supine position.? Anesthesia was performed per protocol. Safety pause time-out was performed. Imaging was displayed in the room and laterality confirmed. ESWL was performed.?The stone was visualized on both fluoroscopy and ultrasound.? Shockwave lithotripsy was performed, with a maximum rate of 120 hertz. The first 300 shocks at a rate of 60, then a pause for 3 minutes was completed.? A total of 2500 shocks to a maximum of power of 20 with a rate of 60 to 1900 shocks increased to maximum rate of 120 hertz.? Minimal fragmentation of the stone was appreciated. The patient tolerated the procedure well and was transferred to the recovery area upon completion. Complications: None
[2024-05-22 12:00] VITALS: BP 123/66; PULSE 58; RESP 16; O2SAT 99
[2024-05-22 12:05] VITALS: BP 121/57; PULSE 61; RESP 16; O2SAT 99
[2024-05-22 12:10] VITALS: BP 118/54; PULSE 64; RESP 16; O2SAT 99
[2024-05-22 12:12] VITALS: BP 111/58; PULSE 68; RESP 16; TEMP 36.1; O2SAT 99
== END 2024-05-22 12:27 | disposition home or self-care (01) ==
PROVIDERS: PCP Internal Medicine; Visit Provider Urology
PROC: (CPT 50590; principal; 2024-05-22 10:30)
DX: N20.0 Calculus of kidney (principal); M54.9 Dorsalgia, unspecified; E78.00 Pure hypercholesterolemia, unspecified; F51.01 Primary insomnia; Z79.899 Other long term (current) drug therapy; Z79.891 Long term (current) use of opiate analgesic; F11.11 Opioid abuse, in remission; F10.91 Alcohol use, unspecified, in remission; F17.210 Nicotine dependence, cigarettes, uncomplicated; Z88.0 Allergy status to penicillin; Z98.890 Other specified postprocedural states
CPT/HCPCS: 50590; 74018; J0131; J0744; J2003; J2704; J3010

== ENCOUNTER → 2024-05-22 07:18 | Outpatient (BNV) | payer BC, SELFPAY | PROVIDERS: PCP Internal Medicine; Visit Provider Urology | DX: N20.0 Calculus of kidney (principal) | CPT/HCPCS: 50590 ==

== ENCOUNTER → 2024-05-22 09:00 | Outpatient (BNV) | payer BC, SELFPAY | PROVIDERS: PCP Internal Medicine; Visit Provider Radiology Diagnostic Radiology | DX: N20.0 Calculus of kidney (principal) | CPT/HCPCS: 74018 ==

== ENCOUNTER 2024-05-27 12:18 | Outpatient (AMB) | payer BC, SELFPAY ==
--- NOTE | 2024-05-27 12:44 | MHC.OFFVIS ---
Vital Signs 05/27/24 12:50 Height 5 ft 6 in Weight 114 lb 10.246 oz BMI 18.5 BP 112/72 Blood Pressure Location Lt brachial Position Sitting Pulse 78 Intake Visit Reasons: 4 month f/u gastritis Intake Note: Korin presents in the office as a 4 month follow up. CC: She states she is having constipation - linzess not covered by insurance. Cramping in the stomach but she is not sure exactly where. She just had a kidney stone removed so she is not sure if this is connected. She is scheduled for EGD and COLO next week. Account Supervisor Required: No Allergies Penicillins [PENICILLINS] Adverse Reaction (Intermediate, Verified 05/27/24 12:53) vomiting/diarrhea/diaphoresis HPI HPI 4 month f/u gastritis: Details: 49 yr old f YU and smoking hx here for f/u Recap: She had epigastric pain 01/08 which was 7-8/10 in severity, was there for a prolonged time, no radiaiton-- no exacerbating factors, no nausea or vomiting, she does have constipation, chronic, sx worse with food, and relived by itself after 3 hours or so appetite is good, weight is a little lower than nml deneis dysphagia, no night sweats she had an initial attack which was few months before this she is on suboxone chronically CT in ED with dilated cbd and PD with atherosclerosis and some narrowing of colrectal area INTERIM: She is feeling well v occasional RUQ pain on and off depending on diet constipation, trying to get linaclotide but expensive, reviewed MRI with CBD dilation and PD dilation but no masses, ?papillary stenosis seeing urology for staghorn calculus EXAM: GENERAL: The patient is thin VITAL SIGNS:see workflow HEENT: Nonicteric sclerae, PERRLA, EOMI. Oropharynx clear. Moist mucous membranes. Conjunctivae appear well perfused. No thyroid mass. CHEST: Chest wall is nontender. HEART: Regular rate and rhythm without murmurs. LUNGS: Clear to auscultation bilaterally. ABDOMEN: Soft, positive bowel sounds, nontender, no organomegaly.no flank tenderness SKIN: No rash, no excessive bruising, petechiae, or purpura. NEUROLOGIC: Cranial nerves II-XII intact without motor/sensory deficit. Psych: normal affect A/P: 1/ Dilated PD, and CBD but LFN nml--could be due to SOD from suboxone use, less likely obstructive lesion MRI as above 2/narrowing rectal area, ddx: stricture, neoplasia, 3/ constipation-from suboxone and 2/ above 4/ staghorn calculus on imaging--seeing urology PLAN: 1/ Repeat MRI to make sure CBD remains stable 2/ egd and colo with suprep 3/ try trulance to see if cheaper 4/ trial of levsin and see if helps ruq pain attacks--if higher LFT and ongoing pains then ERCP PFSH Medical History (Updated 05/27/24 @ 12:53 by SHANELL Waite) Hx of nephrolithotomy with removal of calculi Seizure Smoker Primary insomnia History of opioid abuse Pure hypercholesterolemia Surgical History H/O adenoidectomy History of cardiac catheterization History of shoulder surgery History of removal of cyst History of microdiscectomy S/P YU-BSO (total abdominal hysterectomy and bilateral salpingo-oophorectomy) (~2002) Family History Father Vascular disease Myocardial infarction Mother COPD (chronic obstructive pulmonary disease) Lung cancer Brother Myocardial infarction Sister Stroke Paternal Grandmother Stroke Other Substance abuse Social History Housing: Apartment Alcohol intake: former Patient Tobacco Use Status: Current everyday Tobacco user Tobacco use type: Cigarette Cigarette Packs Per Day: 0.5 Cigarettes Per Day: 10.0 e-Cigarette/Vaping Use: Never Used Second Hand Smoke Exposure: Yes service: No Current occupational status: employed Cognitive needs: No Hearing needs: Yes (Left ear hearing loss per pt) Vision needs: Yes Physical Exam Vital Signs: Last Vital Signs Pulse 78 05/27/24 12:50 BP 112/72 05/27/24 12:50 BMI result Body Mass Index 18.5 Assessment & Plan Assessment & Plan (1) Common bile duct dilation: Code(s): K83.8 - Other specified diseases of biliary tract Category: Medical Plan: as above Orders: Orders MR abdomen wo/w con Today K83.8 - Other specified diseases of biliary tract Medications: New hyoscyamine sulfate 0.125 mg PO QID 30 tabs 0RF plecanatide (Trulance) 3 mg PO DAILY 30 tabs 3RF Coding Level of Care Code Est Pt Level 4 (76566) Diagnoses Common bile duct dilation K83.8
[2024-05-27 12:50] VITALS: BP 112/72; PULSE 78; BMI 18.5
== END 2024-05-27 13:39 | disposition home or self-care (01) ==
LOC: HO.HGI 12:18
PROVIDERS: PCP Internal Medicine; Visit Provider Internal Medicine Gastroenterology
DX: K83.8 Other specified diseases of biliary tract (principal)
CPT/HCPCS: 99214

== ENCOUNTER 2024-05-29 10:29 | Outpatient (AMB) | payer BC, SELFPAY ==
[2024-05-29 10:47] VITALS: BP 102/78; PULSE 67; O2SAT 97; BMI 19.1
--- NOTE | 2024-05-29 10:47 | MHC.PC.OV ---
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: No Accompanied by: Self / Same As Patient Allergies Penicillins [PENICILLINS] Adverse Reaction (Intermediate, Verified 05/29/24 11:02) vomiting/diarrhea/diaphoresis Medication List - Last Reconciled 05/29/24 by David Frost MD atorvastatin 80 mg PO BEDTIME 90 days buprenorphine-naloxone 8-2 mg 8 mg sublingual DAILY calcium carbonate-vitamin D3 600 mg-5 mcg (200 unit) 2 tabs PO DAILY hyoscyamine sulfate 0.125 mg PO QID linaclotide (Linzess) 145 mcg PO DAILY multivit with min-folic acid 120 mcg (Adult Multivitamin Gummies) tabs PO plecanatide (Trulance) 3 mg PO DAILY sennosides (senna) 8.6 mg PO DAILY varenicline tartrate 0.5 mg PO BID 3 days varenicline tartrate 1 mg PO BID 28 days varenicline tartrate 0.5 mg PO DAILY 3 days Tobacco use date assessed: 05/29/24 Dental Screening Dental Screen Date: 05/29/24 Did you have a dental visit in the last 12 months?: Yes Did you have a dental problem in the last 6 months where you did not have access to dental care?: No Was dental information given to patient?: Patient has dentist HPI lump on RT breast HPI Details Patient comes in today for evaluation of a lump on her right breast that she first noticed 4 days ago (last Monday) She recalls that her last mammogram in November 2023 was normal but she was advised that she has dense breast tissues States that the cyst/lump does not hurt and she has no increased family or personal risks for breast cancer No other acute complaints or symptoms are noted [facility] Medical History (Updated 05/29/24 @ 11:05 by David Frost MD) Hx of nephrolithotomy with removal of calculi Seizure Smoker Primary insomnia History of opioid abuse Pure hypercholesterolemia Surgical History H/O adenoidectomy History of cardiac catheterization History of shoulder surgery History of removal of cyst History of microdiscectomy S/P YU-BSO (total abdominal hysterectomy and bilateral salpingo-oophorectomy) (~2002) Family History Father Vascular disease Myocardial infarction Mother COPD (chronic obstructive pulmonary disease) Lung cancer Brother Myocardial infarction Sister Stroke Paternal Grandmother Stroke Other Substance abuse Social History Housing: Apartment Alcohol intake: former Patient Tobacco Use Status: Current everyday Tobacco user Tobacco use type: Cigarette Cigarette Packs Per Day: 0.5 Cigarettes Per Day: 10.0 e-Cigarette/Vaping Use: Never Used Second Hand Smoke Exposure: Yes service: No Current occupational status: employed Cognitive needs: No Hearing needs: Yes (Left ear hearing loss per pt) Vision needs: Yes Questionnaire PHQ-9 Over the last 2 weeks, how often have you been bothered by any of the following problems? 1. Little interest or pleasure in doing things: not at all 2. Feeling down, depressed, or hopeless: not at all 3. Trouble falling or staying asleep, or sleeping too much: not at all 4. Feeling tired or having little energy: not at all 5. Poor appetite or overeating: not at all 6. Feeling bad about yourself - or that you are a failure or have let yourself or your family down: not at all 7. Trouble concentrating on things, such as reading the newspaper or watching television: not at all 8. Moving or speaking so slowly that other people could have noticed. Or the opposite - being so fidgety or restless that you have been moving around a lot more than usual: not at all 9. Thoughts that you would be better off or of hurting yourself in some way: not at all Total score: 0 Depression Screening Interpretation: Negative Depression Screening Done: Yes 65831 - PHQ-9 Billing: Yes Source: Developed by Drs. Jared Lyn, Darby Echeverria, Adam Casiano and colleagues, with an educational tania from [employer]. Thrive Questionnaire Date Thrive assessed: 05/29/24 I am a: Patient What is your living situation today?: I have a steady place to live Within the past 12 months, did the food you bought not last and you didn't have the money to get more?: I choose not to answer this question Within the past 12 months, did you worry whether your food would run out before you got money to buy more?: I choose not to answer this question Do you have trouble paying for medicines?: Yes Do you have trouble getting transportation to medical appointments?: No Do you have trouble paying your heating and electricity bill?: No Do you have trouble taking care of your child, family member or friend?: No Do you have trouble with day-to-day activities such as bathing, preparing meals, shopping, managing finances, etc.?: No Are you currently unemployed and looking for a job?: No Are you interested in more education?: No Please select the resources that you would like help with: None Currently or been in a relationship where the following occur: I choose not to answer THRIVE Score: 0 AUDIT C Alcohol Use Questionnaire (AUDIT-C) 1. How often do you have a drink containing alcohol?: Never 3. How often do you have six or more drinks on one occasion?: Never Total Score: 0 Score Reviewed/Action Taken: Yes ALEN-7 AMB Questionnaire ALEN-7 Date ALEN - 7 assessed: 05/29/24 Feeling nervous, anxious, or on edge: 0 = Not at all Not being able to stop or control worryin = Not at all Worrying too much about different things: 0 = Not at all Trouble relaxin = Not at all Being so restless that it is hard to sit still: 1 = Several days Becoming easily annoyed or irritable: 0 = Not at all Feeling afraid as if something awful might happen: 0 = Not at all Total ALEN-7 score (0-4 normal; 5-9 mild; 10-14 moderate; 15-21 severe): 1 Source: Developed by Drs. Jared Lyn, Darby Echeverria, Adam Casiano and colleagues, with an educational tania from [employer]. Review of Systems Skin/Breast Reports breast mass (right breast) Physical exam (Primary Care) Vital Signs: Last Vital Signs Pulse 67 05/29/24 10:47 BP 102/78 05/29/24 10:47 Pulse Ox 97 05/29/24 10:47 Oxygen Delivery Method Room Air 05/29/24 10:47 BMI result Body Mass Index 19.1 Tobacco/Smoking Status: Tobacco use Status Tobacco use date assessed 05/29/24 05/29/24 10:55 Patient Tobacco Use Status Current everyday Tobacco 05/29/24 10:55 Tobacco use type Cigarette 05/29/24 10:55 e-Cigarette/Vaping Use Never Used 05/29/24 10:55 PHQ-9: PHQ-9 Score PHQ-9: Total score 0 05/29/24 11:05 Depression Screening Interpretation: Negative Thrive Assessment: Date of Thrive Assessment Date Thrive assessed 05/29/24 05/29/24 10:55 Currently or been in a relationship where the following occur: I choose not to answer Const General: no acute distress and alert Chest Other: (+) small, palpable, non-tender lump/nodule on the lateral aspect of the right breast at the 9:30 position, just proximal to the tail of the right breast Coding Level of Care Code Est Pt Level 3 (30204) Diagnoses Breast nodule N63.0 Additional Codes PHQ-9 - 15569 - PHQ-9 Billing: Yes ([id number]) Assessment & Plan Assessment & Plan (1) Breast nodule: Code(s): N63.0 - Unspecified lump in unspecified breast Category: Medical Plan: Will send patient for a diagnostic mammogram as well as an ultrasound of the right breast for further evaluation Plan Follow up as scheduled in August 2024 Orders: Orders MM tomosynthesis diagnostic RT Today N63.0 - Unspecified lump in unspecified breast US breast RT limited Today N63.0 - Unspecified lump in unspecified breast
--- OUTSIDE RECORDS SUMMARY | 2024-05-29 12:17 | XMS_ITS | Clinical Summary ---
Author Organization [facility] Address [address] [place] [address] Care Team Providers Care Glaze Sprayer Name Role Phone Beto Condon BROOKS Primary Care Provider Source Comments PLEASE NOTE, if this patient is a minor, it may be UNLAWFUL to discuss sensitive information that is contained in these records (such as FAMILY PLANNING, MENTAL HEALTH or SUBSTANCE ABUSE) with the minor patient's parent or other person without the patient's specific authorization.[facility] Allergies Active Allergy Reactions Criticality Noted Date Comments Penicillins 05/14/2013 Medications folic acid (FOLVITE) 1 mg tabletIndicatio ns:History of ETOH abuse Take 1 Tab by mouth once daily. 30 Tab 3 06/10/2013 Active vitamin B-1 100 mg tabletIndicatio ns:History of ETOH abuse Take 1 Tab by mouth once daily. 30 Tab 3 06/10/2013 Active multivitamin tabletIndicatio ns:History of ETOH abuse Take 1 Tab by mouth once daily. 30 Tab 3 06/10/2013 Active ciprofloxacin (CIPRO) 500 mg tabletIndicatio ns:Otitis externa of right ear Take 1 Tab by mouth 2 (two) times daily. 14 Tab 0 06/24/2013 Active ibuprofen (ADVIL,MOTRIN) 800 mg tabletIndicatio ns:Otitis externa of right ear Take 1 Tab by mouth 3 (three) times daily as needed for pain. 90 Tab 1 06/24/2013 Active oxyCODONE-aceta minophen (PERCOCET) 5-325 mg per tabletIndicatio ns:Otitis media,Lumbar back pain Take 1 Tab by mouth every 6 (six) hours as needed for pain. 20 Tab 0 07/09/2013 Active traMADol (ULTRAM) 50 mg tablet Take 1 Tab by mouth 4 (four) times daily as needed for pain. 60 Tab 0 10/03/2013 Active traZODone (DESYREL) 50 mg tabletIndicatio ns:Insomnia Take 1 tablet by mouth nightly at bedtime. 30 tablet 1 11/13/2013 Active Active Problems Problem Noted Date Diagnosed Date Hearing loss, conductive, 50% Left ear 4 History of ETOH abuse 06/10/2013 Insomnia 06/10/2013 Ganglion 05/14/2013 History of back surgery 05/14/2013 Overview (05/14/2013): Lumbar Done by [facility] Family History Medical History Relation Name Comments Alcohol/Drug Abuse Brother Diabetes Brother Kidney disease Brother Alcohol/Drug Abuse Father Heart Problems Father Hypertension Father Arthritis Maternal Grandmother Alcohol/Drug Abuse Mother Arthritis Mother Asthma Mother Cancer Mother lungs Stroke Sister Relation Name Status Comments Brother Father Maternal Grandmother Mother Sister Social History Tobacco Use Types Packs/Day Years Used Date Smoking Tobacco: Every Day Cigarettes 1 25 Smokeless Tobacco: Never Tobacco Cessation:Ready to Q uit: No; Counseling Given: Yes Comments:think about it, not yet Alcohol Use Standard Drinks/Week Comments No 0 (1 standard drink = 0.6 oz pure alcohol) last drink a few months ago, vodca, at [employer] now Social Connections Answer Date Recorded Social Connections and Isolation 0 12/08/2018 Financial Resource Strain Answer Date R ecorded Financial Resource Strain 0 2018 Stress Answer Date Recorded Stress 0 12/08/2018 Physical Activity Answer Date Recorded Physical Activity 0 12/08/2018 Food Insecurity Answer Date Recorded Food 0 12/08/2018 Transportation Needs Answer Date Record ed Transportation 0 12/08/2018 Housing Stability Answer Date Recorded Housing 0 12/08/2018 Safety and Environment Answer Date Noé rded Safety 0 12/08/2018 Utilities Answer Date Recorded Utilities 0 12/08/2018 Employment Answer Date Recorded Employment 0 12/08/2018 Comments No Sex and Gender Information Value Date Recorded Sex Assigned at Not on file Legal Sex Female 12:26 PM PDT Gender Identity Not on file Sexual Orientation Not on file Last Filed Vital Signs Vital Sign Reading Time Taken Comments Blood Pressure 126/86 08/12/2013 11:15 AM EDT Pulse 105 08/12/2013 11:15 AM EDT Temperature 36.7 ??C (98.1 ??F) 08/12/2013 11:15 AM E DT Respiratory Rate 14 08/12/2013 11:15 AM EDT Oxygen Saturation - - Inhaled Oxygen Concentration - - Weight 70.3 kg (155 lb) 08/12/2013 11:15 AM EDT Height 170.2 cm (5' 7 ) 06/10/2013 1:14 PM EST Body Mass Index 24.28 06/10/2013 1:14 PM EST Plan of Treatment Not on file Insurance [employer] Care Teams Glaze Sprayer Relationship Specialty Start Date End Date Beto Condon FNP [address] [place] [id number] PCP - General Family Medicine, INTELLIGENCE CHIEF 11/19/14
== END 2024-05-29 11:07 | disposition home or self-care (01) ==
PROVIDERS: PCP Internal Medicine; Visit Provider Internal Medicine
DX: N63.0 Unspecified lump in unspecified breast (principal)

== ENCOUNTER → 2024-05-29 10:29 | Outpatient (BNVA) | payer BC, SELFPAY | PROVIDERS: PCP Internal Medicine; Visit Provider Internal Medicine | DX: N63.10 Unspecified lump in the right breast, unspecified quadrant (principal) | CPT/HCPCS: 96127 ==

== ENCOUNTER 2024-06-05 07:44 | Day surgery (SDC) | payer BC, SELFPAY ==
[2024-05-31 13:36] VITALS: BMI 18.6
--- NOTE | 2024-06-05 08:42 | MHC.SHP ---
Pre-Procedural Eval Section A - 24 Hr Update-Section A only Date of Service: 06/05/24 Section B - Complete if H&P > 30 days Chief Complaint: Other specified diseases of biliary tract Relevant Family History (Specify if Yes): No Relevant Social History: Tobacco Use Present Medications: see Short Stay Collaborative assessment Medical History: Significant History (Seizure Smoker Primary insomnia History of opioid abuse Pure hypercholesterolemia) History of Previous Operations: Relevant previous surgery/procedure and date(s) (H/O adenoidectomy History of cardiac catheterization History of shoulder surgery History of removal of cyst History of microdiscectomy S/P YU-BSO (total abdominal hysterectomy and bilateral salpingo-oophorectomy) (~2002)) Allergies: Allergies Allergy/AdvReac Type Severity Reaction Status Date / Time Penicillins [PENICILLINS] AdvReac Intermediate vomiting/di Verified 06/05/24 08:38 arrhea/diap horesis Review of Systems Sugical H&P ROS: Negative: Constitution, Cardiovascular, Respiratory, Neurological, Psychiatric, Hem-Onc, Allergic/Immunologic, Gastrointestinal, Genitourinary, Musculoskeletal, Integumentary, Endocrine and Eyes/Ears/Nose/Throat Exam Surgical H&P Exam: Normal: HEENT, Normal: Heart, Normal: Lungs, Normal: Extremities, Normal: Abdomen, Normal: Skin and Normal: Neurological Plan Diagnosis/Plan: Unchanged I have reviewed the history and physical and performed a pertinent physical examination on my patient. No changes have occurred unless specified. Time Spent With Patient Time: Total time managing care of this patient today ____ minutes.
[2024-06-05 08:52] VITALS: BMI 18.5
[2024-06-05 08:53] VITALS: BP 114/50; PULSE 58; RESP 14; TEMP 36.6; O2SAT 98
--- NOTE | 2024-06-05 09:00 | HO.ANESPROP2 ---
HPI - Anesthesia Eval Consult details Narrative: for upper and colon, on suboxone, took 8 mg PMFSH Active Problems Active Problems: All Active Problems Breast nodule (Acute) Bilateral kidney stones (Acute) Kidney stone (Acute) Osteoporosis (Acute) Staghorn calculus (Acute) Common bile duct dilation (Acute) COVID-19 (Acute) Colon cancer screening (Acute) Annual physical exam (Acute) Pain in lateral portion of right knee (Acute) Constipation (Acute) Skin tags, multiple acquired (Acute) Osteopenia (Acute) Breast cancer screening (Acute) Ingrown nail of great toe of right foot (Acute) Premature surgical menopause (Acute ~2002) Otitis externa (Acute) Smoker (Acute) Primary insomnia (Acute) History of opioid abuse (Acute) Pure hypercholesterolemia (Acute) Past Medical History Medical History Hx of nephrolithotomy with removal of calculi Seizure Smoker Primary insomnia History of opioid abuse Pure hypercholesterolemia Family History Family History Father Vascular disease Myocardial infarction Mother COPD (chronic obstructive pulmonary disease) Lung cancer Brother Myocardial infarction Sister Stroke Paternal Grandmother Stroke Other Substance abuse Family history of problems with anesthesia: No Surgical History Surgical History Hx of lithotripsy H/O adenoidectomy History of cardiac catheterization History of shoulder surgery History of removal of cyst History of microdiscectomy S/P YU-BSO (total abdominal hysterectomy and bilateral salpingo-oophorectomy) (~2002) History of Problems with Anesthesia: No Social History Social History Housing: Apartment Alcohol intake: former Patient Tobacco Use Status: Current everyday Tobacco user Tobacco use type: Cigarette Cigarette Packs Per Day: 0.5 Cigarettes Per Day: 10.0 e-Cigarette/Vaping Use: Never Used Second Hand Smoke Exposure: Yes Are you DNR?: No Advance Directives: No Advance Directives Information Provided: Yes service: No Current occupational status: employed Cognitive needs: No Hearing needs: Yes (Left ear hearing loss per pt) Vision needs: Yes Meds Allergies Allergy/AdvReac Type Severity Reaction Status Date / Time Penicillins [PENICILLINS] AdvReac Intermediate vomiting/di Verified 06/05/24 08:38 arrhea/diap horesis Home Medications ?Medication ?Instructions ?Recorded ?Confirmed ?Last Taken ?Type buprenorphine 8 mg-naloxone 2 mg 8 mg sublingual DAILY 03/06/20 06/05/24 06/05/24 History sublingual film calcium 600 mg (as 2 tab PO DAILY 01/22/24 06/05/24 Unknown History carbonate)-vitamin D3 5 mcg (200 unit) tablet multivitamin with minerals-folic 1 tab PO DAILY 05/27/24 06/05/24 Unknown History acid 120 mcg chewable tablet (Adult Multivitamin Gummies) Exam Height,Weight and Vital Signs: Height 5 ft 6 in Weight 52 kg Last Vital Signs Temp 97.9 F 06/05/24 08:53 Pulse 58 06/05/24 08:53 Resp 14 06/05/24 08:53 BP 114/50 L 06/05/24 08:53 Pulse Ox 98 06/05/24 08:53 O2 Del Method Room Air 06/05/24 08:53 Airway Mallampati Class: II TM Dist: >3cm Neck ROM: Full Heart: rrr Lungs: cta Assessment and Plan Assessment Anesthesia Assessment: Anesthesia Plan Discussed Final Anesthetic Review Family History of Problems with Anesthesia: No History of Problems with Anesthesia: No NPO: Yes ASA Class: III Final Preanesthetic Review: No Changes in Pt Med Stat, Meds/Allgs Chart Reviewed, Consent Obtained/Reviewed and Anes Risks/Benef Reviewed Patient Risk: Intermediate Procedure Risk: Low Anesthetic Plan Anesthetic Plan: MAC: Disposition: Standard PACU
--- NOTE | 2024-06-05 09:25 | HO.OPN-COLON ---
Colonoscopy Operative Note Operative Note Date of Service: 06/05/24 Narrative: Operative Information Procedure Description: EGD, Colonoscopy Indication: abn bowel habits Anesthesia: MAC FLEXIBLE TRANSORAL UPPER GASTROINTESTINAL ENDOSCOPY AND COLONOSCOPY PROCEDURE NOTE UPPER ENDOSCOPY Consent: Indications for the procedure and potential complications of bleeding, perforation, reaction to medications and missed diagnosis were discussed with the patient and informed consent was obtained. Instrument: Olympus GIF H 190 J mid size upper endoscope Monitoring: Vital signs and clinical assessment, continuous EKG monitoring, Pulse oximetry, Carbon Dioxide monitoring and blood pressure monitoring were done throughout the procedure. Procedure: The patient was placed in the left lateral decubitis position and pre-procedure medications were administered and a bite block was placed. The endoscope was inserted into the mouth and advanced under direct vision to the third part of duodenum. A careful inspection was made as the upper endoscope was withdrawn including a retroflexed examination of the proximal stomach; Findings and interventions are described below. Findings: Larynx:normal Esophagus: GE junction at 40 cm, diaphragm hiatus at 40 cm, bogginess at GEJ, bx taken as well as from distal esophagus Stomach: patchy antral erythema. Biopsies were obtained. Grade 2 flap valve on retroflexed examination of the cardia. Duodenum: mild bulbar duodenitis, bx taken Intervention: Biopsies as noted above, COLONOSCOPY Instrument: Olympus variable stiffness pediatric scope 190L Colonoscopy Monitoring: Vital signs and clinical assessment, continuous EKG monitoring, Pulse oximetry, Carbon Dioxide monitoring and blood pressure monitoring were done throughout the procedure. Colon withdrawal time was 32 minutes. Procedure: The patient was placed in the left lateral decubitis position and pre-procedure medications were administered. After a digital rectal examination of the ano-rectum, the video colonoscope was inserted into the rectum and advanced through the colon to the cecum/TI. The colonoscope was slowly withdrawn in a retrograde panoramic fashion and the colon mucosa was carefully examined including a retroflexed view of the rectum. Findings and interventions are described below. Procedure Difficulty:moderate Findings: Terminal Ileum-normal, bx taken Random colon bx taken, mild melanosis coli noted Cecum:normal Ascending Colon: 10 mm sessile polyp removed with cold snare, not retireved Transverse Colon -normal Descending Colon: 6-8 mm sessile polyp removed with cold snare Sigmoid Colon: at 32 cm from anal verge a rather flat panckae shaped polyp lesion noted, about 12-144 m in diameter, lifted with eleview and removed with hot snare with edges ablated using hot tip cautery, x 2 clips applied Rectum: Retroflexion with small internal hemorrhoids, grade I, x3 sessile polyps 4-7 mm removed with cold snare Anorectum - normal Colon preparation: [place] Bowel Preparation Scale Right colon; 3 Transverse colon: 3 Left colon; 3 (0 = Unprepared colon segment with mucosa not seen due to solid stool that cannot be cleared. 1 = Portion of mucosa of the colon segment seen, but other areas of the colon segment not well seen due to staining, residual stool and/or opaque liquid. 2 = Minor amount of residual staining, small fragments of stool and/or opaque liquid, but mucosa of colon segment seen well. 3 = Entire mucosa of colon segment seen well with no residual staining, small fragments of stool or opaque liquid) Impression and Post Procedure Diagnosis: Endoscopy Findings: gastritis esophagitis duodenitis Colonoscopy Findings: colon polyps internal hemorrhoids melansosi coli Plan: Await Pathology results Repeat Colonoscopy in 6-12 months due to polyp volume and large polyp removed today or earlier if clinically indicated High fiber diet leaflet avoid straining at stool, epsom salts and sitz bath, anusol supps or cream Above findings were reviewed with the patient and relevant handouts were provided if indicated.
[2024-06-05 10:17] VITALS: BP 97/48; PULSE 59; RESP 13; TEMP 36.1; O2SAT 98
[2024-06-05 10:32] VITALS: BP 118/58; PULSE 58; RESP 16; O2SAT 98
[2024-06-05 10:47] VITALS: BP 120/56; PULSE 59; RESP 16; TEMP 36.2; O2SAT 97
== END 2024-06-05 12:32 | disposition home or self-care (01) ==
PROVIDERS: PCP Internal Medicine; Visit Provider Internal Medicine Gastroenterology
PROC: (CPT 45385; principal; 2024-06-05 09:10)
DX: R19.4 Change in bowel habit (principal); D12.5 Benign neoplasm of sigmoid colon; D12.8 Benign neoplasm of rectum; K63.5 Polyp of colon; K63.89 Other specified diseases of intestine; K64.0 First degree hemorrhoids; K59.09 Other constipation; K83.8 Other specified diseases of biliary tract; K29.50 Unspecified chronic gastritis without bleeding; K29.80 Duodenitis without bleeding; K20.80 Other esophagitis without bleeding; K44.9 Diaphragmatic hernia without obstruction or gangrene; E78.00 Pure hypercholesterolemia, unspecified; R56.9 Unspecified convulsions; F51.01 Primary insomnia; Z87.442 Personal history of urinary calculi; Z88.0 Allergy status to penicillin; Z90.710 Acquired absence of both cervix and uterus; F11.20 Opioid dependence, uncomplicated; F17.210 Nicotine dependence, cigarettes, uncomplicated; Z98.890 Other specified postprocedural states
CPT/HCPCS: 45385; 45380; 45381; 43239; 88305; 88313; 88342; J2003; J2250; J2704

== ENCOUNTER → 2024-06-05 07:44 | Outpatient (BNV) | payer BC, SELFPAY | PROVIDERS: PCP Internal Medicine; Visit Provider Internal Medicine Gastroenterology | DX: R19.4 Change in bowel habit (principal); K63.5 Polyp of colon; D12.8 Benign neoplasm of rectum; K63.89 Other specified diseases of intestine; K64.0 First degree hemorrhoids; K29.70 Gastritis, unspecified, without bleeding; K20.90 Esophagitis, unspecified without bleeding; K29.80 Duodenitis without bleeding | CPT/HCPCS: 43239; 45380; 45381; 45385 ==

== ENCOUNTER 2024-06-14 11:19 | Outpatient (REF) | payer BC, SELFPAY ==
--- NOTE | ~2024-06-14 | MM_ITS ---
EXAMINATION: MM DIAGNOSTIC DIGITAL BREAST TOMOSYNTHESIS, RIGHT Limited right breast ultrasound. CLINICAL INFORMATION: Right breast palpable lump COMPARISON: Mammography: Comparison is made with available prior examinations. TECHNIQUE: Digital breast tomosynthesis is performed in both the craniocaudal and mediolateral oblique views along with computer-aided detection (CAD). Synthesized 2D images are generated from the tomosynthesis. FINDINGS: There are scattered areas of fibroglandular density (ACR BI-RADS breast composition Category b). BB marker in the upper outer breast far posterior depth with an underlying normal-appearing intramammary lymph node unchanged from multiple priors. No suspicious masses calcifications or other abnormal findings. Targeted color Doppler ultrasound scanning in the area the patient's palpable lump at 10:00 9 cm from nipple demonstrates a normal-appearing intramammary lymph node. MM/MM tomosynthesis diagnostic RT IMPRESSION: Normal intramammary lymph node at this site of the patient's palpable lump. Benign. ASSESSMENT: BI-RADS BI-RADS 2 - Benign Findings RECOMMENDATION: 1 year F/U Results were provided to the patient at time of visit by the technologist. This patient's information was entered into a reminder system with a target due date for their next mammogram. Electronically signed by: Marianne Whitley DO 06/14/2024 12:07 PM ANGEL[facility] FLORES
--- OUTSIDE RECORDS SUMMARY | 2024-06-14 13:27 | XMS_ITS | Clinical Summary ---
Author Organization [facility] Address [address] [place] [address] Care Team Providers Care Machine Crater Name Role Phone Beto Condon BROOKS Primary Care Provider [phone] Source Comments PLEASE NOTE, if this patient [...] Overview (05/14/2013): Lumbar Done by Neurosurgery at [facility] Family History Medical History Relation [...] drink a few months ago, vodca, at [email or web address] now Social Connections Answer Date Recorded Social [...] Not on file Insurance [employer] Care Teams Machine Crater Relationship Specialty Start Date End Date Beto Condon FNP [address] [place] [address] PCP - General Family Medicine, GLOBAL PROGRAM MANAGER 11/19/14
== END 2024-06-14 11:20 | disposition home or self-care (01) ==
LOC: HO.MAMMO 11:19
PROVIDERS: PCP Internal Medicine; Visit Provider Internal Medicine
DX: N63.11 Unspecified lump in the right breast, upper outer quadrant (principal)
CPT/HCPCS: 76642; 77061; 77065

== ENCOUNTER → 2024-06-14 11:30 | Outpatient (BNV) | payer BC, SELFPAY | PROVIDERS: PCP Internal Medicine; Visit Provider Internal Medicine | DX: N63.10 Unspecified lump in the right breast, unspecified quadrant (principal) | CPT/HCPCS: 76642; 77061; 77065 ==

== ENCOUNTER 2024-07-02 10:10 | Outpatient (REF) | payer BC, SELFPAY ==
--- NOTE | ~2024-07-02 | XR_ITS ---
EXAMINATION: XR SCREENING FILM FOR MR HISTORY: PRE MRI KUB TO R/O COLONOSCOPY CLIP COMPARISON: There are no prior studies for comparison. FINDINGS: Two supine views of the abdomen are submitted. The bowel gas pattern is unremarkable, without evidence of mechanical obstruction. There is a 1.7 cm calcification in the left upper quadrant, previously shown to be related to the left kidney. There is no metallic clip or foreign body. No abnormal soft tissue masses are identified. There is degenerative disc disease of the lumbar spine at the L4-5 level. XR/XR pre mri screening IMPRESSION: 1.7 cm left upper quadrant calcification, previously shown to be related to the left kidney. No metallic clip or foreign body is seen. Electronically signed by: Jared Foy MD 07/02/2024 11:28 AM EDT
== END 2024-07-02 10:11 | disposition home or self-care (01) ==
LOC: HO.MRI 10:10
PROVIDERS: PCP Internal Medicine; Visit Provider Internal Medicine Gastroenterology
DX: Z13.89 Encounter for screening for other disorder (principal)

== ENCOUNTER → 2024-07-10 13:34 | Outpatient (BNV) | payer BC, SELFPAY | PROVIDERS: PCP Internal Medicine; Visit Provider Radiology Diagnostic Radiology | DX: K83.8 Other specified diseases of biliary tract (principal) | CPT/HCPCS: 74183 ==

== ENCOUNTER 2024-07-10 13:38 | Outpatient (REF) | payer BC, SELFPAY ==
--- NOTE | ~2024-07-10 | MR_ITS ---
EXAMINATION: MRI Abdomen without and with contrast HISTORY: K83.8 - Other specified diseases of biliary tract COMPARISON: Comparison is made with the prior examination dated 02/27/2024. TECHNIQUE: Axial in and out of phase T1-weighted gradient echo, axial diffusion weighted, and axial and coronal HASTE T2 with fat saturation images were obtained through the abdomen. Subsequently, fat suppressed axial and coronal T1-weighted images were obtained after the intravenous administration of 5.5 mL Gadavist. FINDINGS: There is no significant signal loss within the liver on opposed phase imaging to suggest ptosis. There is no enhancing liver mass. There is no significant intrahepatic biliary ductal dilatation. The hepatic and portal veins are patent. Again seen is mild prominence of the common bile duct measuring approximately 8mm in diameter. There is layering fluid in the gallbladder. There is no evidence of cholelithiasis or choledocholithiasis. The pancreatic duct is at the upper limits of normal in caliber. No pancreatic mass or inflammatory changes are identified. The spleen, adrenals, and kidneys are unremarkable. No retroperitoneal lymphadenopathy or ascites is identified in the upper abdomen. There is degenerative disc disease of the spine. MR/MR abdomen wo/w con IMPRESSION: Stable mild prominence of the common bile duct without evidence of cholelithiasis or choledocholithiasis. Electronically signed by: Jared Foy MD 07/11/2024 08:28 AM EDT
[2024-07-10] MEDS: gadobutroL 7.5 ML VIAL IVPUSH (14:36)
--- OUTSIDE RECORDS SUMMARY | 2024-07-10 16:18 | XMS_ITS | Clinical Summary ---
Author Organization [facility] Address [address] [place] [address] Care Team Providers Care Loan Servicing Representative Name Role Phone Beto Condon BROOKS Primary Care Provider [phone] Source Comments PLEASE NOTE, if this patient [...] Overview (05/14/2013): Lumbar Done by Neurosurgery at [facility] Family History Medical History Relation Name Comments [...] drink a few months ago, vodca, at [employer] now Social Connections Answer Date Recorded Social [...] Not on file Insurance [employer] Care Teams Loan Servicing Representative Relationship Specialty Start Date End Date Beto Condon FNP [address] [place] [address] PCP - General Family Medicine, BISQUE CLEANER 11/19/14
== END 2024-07-10 13:39 | disposition home or self-care (01) ==
LOC: HO.MRI 13:38
PROVIDERS: PCP Internal Medicine; Visit Provider Internal Medicine Gastroenterology
DX: K83.8 Other specified diseases of biliary tract (principal)
CPT/HCPCS: 74183; A9585

== ENCOUNTER 2024-07-17 15:08 | Outpatient (AMB) | payer BC, SELFPAY ==
--- NOTE | 2024-07-17 13:35 | MHC.OFFVIS ---
Intake Visit Reasons: ESWL- follow up/KUB Intake Note: Pt presents to the office today for a follow up/KUB. Allergies Penicillins [PENICILLINS] Adverse Reaction (Intermediate, Verified 07/17/24 15:43) vomiting/diarrhea/diaphoresis HPI Comments Details: 07/17/24-- s/p Left ESWL 05/28/24--had Orbit Xray --- 7 mm calcification noted renal fossae. 49-year-old female presenting with nephrolithiasis. She has a history of kidney stones potentially composed of calcium oxalate. She previously performed a 24-hour urine collection for associated osteoporosis management. There is mention of a dilated bile duct and recent colonoscopy necessitating surgical clips. Recent diagnostic imaging included MRI and X-ray, with pre-existing confusion over imaging results relating to kidney stone detection. Plans for ultrasound follow-up were discussed to better assess kidney status and evaluate any residual stones. Results - Tests and Diagnostics: - MRI of the abdomen: No stones visualized, kidneys unremarkable. - Prior X-ray: 7 cm left upper quadrant calcification associated with left kidney. Discussion Notes During the consultation, we discussed the likely presence of calcium oxalate stones and the importance of conducting a comprehensive urine evaluation to understand the etiology better. I explained the general dietary recommendations to reduce stone formation risk, emphasizing adequate fluid intake to minimize urine concentration. We considered the diagnostic utility of prior imaging, acknowledging that MRI may not always detect stones, unlike more targeted ultrasound assessment plans. Discussion included forwarding any retrieved stone fragments for composition analysis, confirming the need for precise diagnosis before targeted management strategies. Consent was implied through the patient's understanding and agreement to subsequent steps in her care, including urine testing and potential imaging. 03/29/24-Korin is a 48-year-old female who is for evaluation due to left kidney stone 2.4 cm. The patient complains of abdominal pain and is being followed by GI. Korin is on Suboxone history of opioid and alcohol disorder. Comorbidity nicotine use. Pt complains of Discussed ESWL. 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 [facility] Medical History Hx of nephrolithotomy with removal of calculi Seizure Smoker Primary insomnia History of opioid abuse Pure hypercholesterolemia Surgical History Hx of lithotripsy H/O adenoidectomy History of cardiac catheterization History of shoulder surgery History of removal of cyst History of microdiscectomy S/P YU-BSO (total abdominal hysterectomy and bilateral salpingo-oophorectomy) (~2002) Family History Father Vascular disease Myocardial infarction Mother COPD (chronic obstructive pulmonary disease) Lung cancer Brother Myocardial infarction Sister Stroke Paternal Grandmother Stroke Other Substance abuse Social History Housing: Apartment Alcohol intake: former Patient Tobacco Use Status: Current everyday Tobacco user Tobacco use type: Cigarette Cigarette Packs Per Day: 0.5 Cigarettes Per Day: 10.0 e-Cigarette/Vaping Use: Never Used Second Hand Smoke Exposure: Yes service: No Current occupational status: employed Cognitive needs: No Hearing needs: Yes (Left ear hearing loss per pt) Vision needs: Yes Results AMB Urinalysis, Automated UA Leukoctes 125 Nela/uL Last Edit by Nora Raphael CMA on 07/17/24 15:48 UA Nitrite Negative Last Edit by Nora Raphael CMA on 07/17/24 15:48 UA Urobilinogen 0.2 mg/dL Last Edit by Nora Raphael CMA on 07/17/24 15:48 UA Protein 30 mg/dL Last Edit by Nora Raphael CMA on 07/17/24 15:48 UA pH 6.0 Last Edit by Nora Raphael CMA on 07/17/24 15:48 UA Blood 25 Maxi/uL Last Edit by oNra Raphael CMA on 07/17/24 15:48 UA Specific [place] 1.020 Last Edit by Nora Raphael CMA on 07/17/24 15:48 UA Ketone Positive Last Edit by Nora Raphael CMA on 07/17/24 15:48 UA Bilirubin 0 mg/dL Last Edit by Nora Raphael CMA on 07/17/24 15:48 UA Glucose 0 mg/dL Last Edit by Nora Raphael CMA on 07/17/24 15:48 Results Reviewed Results Reviewed: Laboratory Last Values Urine pH (Auto) 6.0 07/17/24 15:44 Specific [place] (Auto) 1.020 07/17/24 15:44 Urine Protein (Auto) 30 mg/dL 07/17/24 15:44 Glucose (UA)(Auto) 0 mg/dL 07/17/24 15:44 Urine Ketones (Auto) Positive 07/17/24 15:44 Urine Blood (Auto) 25 Maxi/uL 07/17/24 15:44 Urine Nitrite (Auto) Negative 07/17/24 15:44 Urine Bilirubin (Auto) 0 mg/dL 07/17/24 15:44 Urine Urobilinogen (Auto) 0.2 mg/dL 07/17/24 15:44 Leukocyte Esterase (Auto) 125 Nela/uL 07/17/24 15:44 Date of Service: 01/02/24 CT ABDOMEN AND PELVIS WITH CONTRAST CLINICAL INFORMATION: Upper abdominal pain, question pancreatitis COMPARISON: 10/22/2015 CT TECHNIQUE: Multidetector volumetric images were obtained from the superior aspect of the liver through the pubic symphysis following administration 85 mL of Omnipaque 350 intravenous contrast. Sagittal and coronal reformatted images were obtained on the technologist's workstation. Oral contrast: No This CT examination was performed using dose optimization techniques as appropriate, variously including the following: *Automated exposure control *Adjustment of mA and/or kV according to patient size (this includes techniques or standardized protocols for targeted exams where dose is matched to indication/reason for exam; i.e. extremities or head) *Use of iterative reconstruction technique DLP: 338 mGy-cm FINDINGS: HEDIS REVIEW NURSE: Left upper quadrant calcification LUNG BASES: Atelectasis.- LIVER, GALLBLADDER, AND BILIARY TREE: The liver is normal in size, shape, and attenuation. No focal hepatic lesion. Mild intrahepatic biliary ductal dilatation. Prominent common bile duct to 7 mm in the noncholecystectomy state. Associated pancreatic ductal dilatation. Findings appear more prominent than on 2016 nonenhanced study. PANCREAS: Pancreatic ductal dilatation to the tail, measuring 4 mm in the head. SPLEEN: Unremarkable. ADRENAL GLANDS: Unremarkable. KIDNEYS AND URETERS: The kidneys are normal in size, shape, and attenuation. No hydronephrosis or hydroureter. No perinephric stranding. 2.4 cm nonobstructing left upper pole staghorn calculus. Tiny nonobstructing right upper and left lower pole renal calculi. BLADDER: Decompressed bladder. GASTROINTESTINAL TRACT: Decompressed stomach, wall thickening not excluded. Evaluation of the bowel limited without all oral contrast. Unremarkable appendix. It is difficult to trace the lower GI tract without IV contrast but there is moderate fecal retention of the descending colon and a segment of dilated air-filled sigmoid colon measuring 5 cm. Concern for region of rectosigmoid narrowing and hyperattenuation in the left hemipelvis, coronal 5:53. ABDOMINAL WALL: No significant hernia is appreciated. LYMPH NODES: Normal. VASCULAR: Atherosclerotic calcifications of the aneurysmal aorta. Normal caliber inferior vena cava. Patent portal system. PELVIC VISCERA: Small amount of free pelvic fluid. OSSEOUS STRUCTURES: Minimal retrolisthesis L4 on L5. Degenerative changes, L4-5 and L5-S1 disc space narrowings. Redemonstration L5-S1 calcified disc bulge resulting in compression of the anterior left sided thecal sac and bilateral neuroforaminal encroachment. IMPRESSION: 1. Intrahepatic and extrahepatic biliary ductal dilatation and pancreatic ductal dilatation. Consider MRCP. 2. Bilateral nonobstructing renal calculi, largest 2.4 cm left upper pole staghorn calculus. 3. Question rectosigmoid narrowing and hyperattenuation. Consider colonoscopy. 4. Small amount of free pelvic fluid. Assessment & Plan Assessment & Plan (1) Kidney stone: Code(s): N20.0 - Calculus of kidney Category: Medical Plan Plan The treatment will focus on confirming the suspected calcium oxalate composition via retrieved stone fragments. A 24-hour urine collection is planned to evaluate any metabolic factors contributing to stone formation. Given previous imaging discrepancies, an ultrasound will be scheduled to assess stone presence. Hydration will be emphasized as a preventive measure. The patient, already active in osteoporosis management, agreed to this plan, which considers her recent colonoscopy with surgical clips. We discussed the risks and benefits of diagnostic procedures and lifestyle modifications, and the patient consented to the comprehensive plan in pursuit of reducing stone risk. Patient Instructions - Ensure adequate fluid intake to help prevent stone formation. - Expect a 24-hour urine collection kit to arrive via [employer] for completion. - Follow all instructions provided with the urine collection kit. - Plan for follow-up ultrasound imaging as directed. - Maintain current dietary recommendations as previously discussed. - Seek immediate care for severe pain, blood in urine, or significant changes in urinary habits. Orders: Orders Surgical Today N20.0 - Calculus of kidney AMB Urinalysis Automated Today Z13.9 - Encounter for screening, unspecified US renal BI Today N20.0 - Calculus of kidney Patient Instructions: The patient had an opportunity to ask questions regarding treatment plan. The patient expressed understanding and agreement with the above treatment plan. The patient is aware they should contact our office by phone for worsening of their current condition or the appearance of new symptoms. Compliance is encouraged with any medications and followup testing that is ordered. It is a privilege to be allowed the opportunity to participate in the urologic care of your patient. If you have any questions or concerns regarding treatment for the above conditions please do not hesitate to contact me. The office telephone contact is [phone]. This note is constructed in part using voice recognition software. While every effort has been made to ensure accuracy director of assisted living errors may have been included. Yours sincerely, Maile Cr MD Scribe Plan - Not visible on output: Patient was informed and verbally consented to the use of an ambient scribe for clinic note documentation during this visit. Coding Diagnoses Kidney stone N20.0
--- OUTSIDE RECORDS SUMMARY | 2024-07-17 17:35 | XMS_ITS | Clinical Summary ---
Author Organization [facility] Address [address] [place] [address] Care Team Providers Care Lead Network Engineer Name Role Phone Beto Condon BROOKS Primary Care Provider [phone] Source Comments PLEASE NOTE, if this patient [...] Overview (05/14/2013): Lumbar Done by Neurosurgery at [facility] Family History Medical History Relation Name Comments [...] drink a few months ago, vodca, at [employer] now Social Connections Answer Date Recorded Social [...] Not on file Insurance [employer] Care Teams Lead Network Engineer Relationship Specialty Start Date End Date Beto Condon FNP [address] [place] [address] PCP - General Family Medicine, HEAT PUMP INSTALLER 11/19/14
== END 2024-07-17 16:20 | disposition home or self-care (01) ==
LOC: HO.HUSH 15:09
PROVIDERS: PCP Internal Medicine; Visit Provider Urology
DX: Z13.9 Encounter for screening, unspecified (principal)

== ENCOUNTER 2024-07-17 15:08 | Outpatient (REF) | payer BC, SELFPAY ==
[2024-07-27 01:10] LABS: Stone Source BILAT. KIDNEYS
== END 2024-07-17 15:09 | disposition home or self-care (01) ==
LOC: HO.LNP 15:08
PROVIDERS: PCP Internal Medicine; Visit Provider Urology
DX: N20.0 Calculus of kidney (principal)
CPT/HCPCS: 81003; 82365; 88300

== ENCOUNTER 2024-08-26 07:19 | Outpatient (REF) | payer BC, SELFPAY ==
--- OUTSIDE RECORDS SUMMARY | 2024-08-26 07:22 | XMS_ITS | Clinical Summary ---
Author Organization [facility] Address [address] [place] [address] Care Team Providers Care Brake Repairer Railroad Name Role Phone Beto Condon BROOKS Primary Care Provider [phone] Source Comments PLEASE NOTE, if this patient [...] Overview (05/14/2013): Lumbar Done by Neurosurgery at [facility] Family History Medical History Relation Name Comments [...] drink a few months ago, vodca, at [employer] now Social Connections Answer Date Recorded Social [...] Not on file Insurance [employer] Care Teams Brake Repairer Railroad Relationship Specialty Start Date End Date Beto Condon FNP [address] [place] [address] PCP - General Family Medicine, LADLER 11/19/14
[2024-08-26 08:10] LABS: Alanine Aminotransferase 25 U/L (0-31); Albumin Level 4.5 g/dL (3.5-5.0); Alkaline Phosphatase 72 U/L (39-117); Anion Gap 12 (12-20); Aspartate Amino Transferase 29 U/L (5-31); Bilirubin Total 0.3 mg/dL (0.0-1.0); Blood Urea Nitrogen 15 mg/dL (9-16); Calcium 9.9 mg/dL (8.4-10.2); Carbon Dioxide 29 mmol/L (22-29); Chloride 104 mmol/L (96-108); Cholesterol 176 mg/dL (<200); Estimated Glomerular Filt Rate > 60; Glucose Fasting 94 mg/dL (60-99); HDL Cholesterol 63 mg/dL (>40); LDL Cholesterol Calculated 96 mg/dL (<100); Potassium 4.2 mmol/L (3.3-5.1); Sodium 141 mmol/L (135-145); Total Protein 7.4 g/dL (6.5-8.0); Triglycerides 88 mg/dL (<150)
== END 2024-08-26 07:20 | disposition home or self-care (01) ==
LOC: HO.LAB 07:19
PROVIDERS: PCP Internal Medicine; Visit Provider Internal Medicine
DX: E78.00 Pure hypercholesterolemia, unspecified (principal)
CPT/HCPCS: 36415; 80053; 80061

== ENCOUNTER 2024-08-27 13:09 | Outpatient (AMB) | payer BC, SELFPAY ==
[2024-08-27 13:11] VITALS: BP 110/68; PULSE 78; O2SAT 98; BMI 18.9
--- NOTE | 2024-08-27 13:11 | A.OFFPC_ITS ---
Vital Signs 08/27/24 13:11 Height 5 ft 6 in Weight 117 lb BMI 18.9 BP 110/68 Blood Pressure Location Lt brachial Position Sitting Pulse 78 Pulse Source Pulse Oximeter Pulse Oximetry (%) 98 Oxygen Delivery Method Room Air Intake Visit Reasons: hyperlipidemia, osteoporosis Bundle Packer Required: No Accompanied by: Self / Same As Patient Allergies Penicillins [PENICILLINS] Adverse Reaction (Intermediate, Verified 08/27/24 13:39) vomiting/diarrhea/diaphoresis Medication List - Last Reconciled 08/27/24 by David Frost MD atorvastatin 80 mg PO BEDTIME 90 days buprenorphine-naloxone 8-2 mg 8 mg sublingual DAILY calcium carbonate-vitamin D3 600 mg-5 mcg (200 unit) 2 tabs PO DAILY hyoscyamine sulfate 0.125 mg PO QID linaclotide (Linzess) 145 mcg PO DAILY multivit with min-folic acid 120 mcg (Adult Multivitamin Gummies) 1 tab PO DAILY plecanatide (Trulance) 3 mg PO DAILY varenicline tartrate 0.5 mg PO BID 3 days varenicline tartrate 1 mg PO BID 28 days varenicline tartrate 0.5 mg PO DAILY 3 days Tobacco use date assessed: 08/27/24 Dental Screening Dental Screen Date: 08/27/24 Did you have a dental visit in the last 12 months?: Yes Did you have a dental problem in the last 6 months where you did not have access to dental care?: No Was dental information given to patient?: Patient has dentist HPI hyperlipidemia, osteoporosis HPI Details Patient comes in today for her follow up visit States that she still has on and off epigastric pain, which she states has been going on for a while now Abdominal MRI done a couple of months ago revealed (+) stable mild prominence of the common bile duct without evidence of cholelithiasis or choledocholithiasis She is scheduled to see GI (Dr. Cuevas) next week for further management / follow up of her abdominal pain and dilated CBD Patient is also following up with urology regularly for her kidney stones She had lithotripsy (ESWL) done back in May 2024 and states that she's had no kidney pain since Relates (+) nausea at times that are related to her recurrent RUQ pain but she denies any vomiting and has had no change in bowel habits lately She denies any fever, headaches or dizziness Denies any chest pains, no increased SOB Needs her Atorvastatin Rx refilled She had her follow up labs done yesterday - to discuss her results [facility] Medical History Hx of nephrolithotomy with removal of calculi Seizure Smoker Primary insomnia History of opioid abuse Pure hypercholesterolemia Surgical History Hx of lithotripsy H/O adenoidectomy History of cardiac catheterization History of shoulder surgery History of removal of cyst History of microdiscectomy S/P YU-BSO (total abdominal hysterectomy and bilateral salpingo-oophorectomy) (~2002) Family History Father Vascular disease Myocardial infarction Mother COPD (chronic obstructive pulmonary disease) Lung cancer Brother Myocardial infarction Sister Stroke Paternal Grandmother Stroke Other Substance abuse Social History Housing: Apartment Alcohol intake: former Patient Tobacco Use Status: Current everyday Tobacco user Tobacco use type: Cigarette Cigarette Packs Per Day: 0.5 Cigarettes Per Day: 10.0 e-Cigarette/Vaping Use: Never Used Second Hand Smoke Exposure: Yes service: No Current occupational status: employed Cognitive needs: No Hearing needs: Yes (Left ear hearing loss per pt) Vision needs: Yes Questionnaire PHQ-9 Over the last 2 weeks, how often have you been bothered by any of the following problems? 1. Little interest or pleasure in doing things: not at all 2. Feeling down, depressed, or hopeless: not at all 3. Trouble falling or staying asleep, or sleeping too much: not at all 4. Feeling tired or having little energy: not at all 5. Poor appetite or overeating: not at all 6. Feeling bad about yourself - or that you are a failure or have let yourself or your family down: not at all 7. Trouble concentrating on things, such as reading the newspaper or watching television: not at all 8. Moving or speaking so slowly that other people could have noticed. Or the opposite - being so fidgety or restless that you have been moving around a lot more than usual: not at all 9. Thoughts that you would be better off or of hurting yourself in some way: not at all Total score: 0 Depression Screening Interpretation: Negative Depression Screening Done: Yes 26343 - PHQ-9 Billing: Yes Source: Developed by Drs. Jared Lyn, Darby Echeverria, Adam Casiano and colleagues, with an educational tania from [employer]. Thrive Questionnaire Date Thrive assessed: 08/27/24 I am a: Patient What is your living situation today?: I have a steady place to live Within the past 12 months, did the food you bought not last and you didn't have the money to get more?: I choose not to answer this question Within the past 12 months, did you worry whether your food would run out before you got money to buy more?: I choose not to answer this question Do you have trouble paying for medicines?: Yes Do you have trouble getting transportation to medical appointments?: No Do you have trouble paying your heating and electricity bill?: No Do you have trouble taking care of your child, family member or friend?: No Do you have trouble with day-to-day activities such as bathing, preparing meals, shopping, managing finances, etc.?: No Are you currently unemployed and looking for a job?: No Are you interested in more education?: No Please select the resources that you would like help with: None Currently or been in a relationship where the following occur: I choose not to a nswer THRIVE Score: 0 AUDIT C Alcohol Use Questionnaire (AUDIT-C) 1. How often do you have a drink containing alcohol?: Never 3. How often do you have six or more drinks on one occasion?: Never Total Score: 0 Score Reviewed/Action Taken: Yes ALEN-7 AMB Questionnaire ALEN-7 Date ALEN - 7 assessed: 08/27/24 Feeling nervous, anxious, or on edge: 0 = Not at all Not being able to stop or control worryin = Not at all Worrying too much about different things: 0 = Not at all Trouble relaxin = Not at all Being so restless that it is hard to sit still: 1 = Several days Becoming easily annoyed or irritable: 0 = Not at all Feeling afraid as if something awful might happen: 0 = Not at all Total ALEN-7 score (0-4 normal; 5-9 mild; 10-14 moderate; 15-21 severe): 1 Source: Developed by Drs. Jared Lyn, Darby Echeverria, Adam Casiano and colleagues, with an educational tania from [employer]. Review of Systems Const Denies chills, Denies fatigue, Denies fever(s) and Denies headache(s) ENT Denies dysphagia, Denies dizziness, Denies otalgia, Denies headache(s), Denies neck pain, Denies odynophagia and Denies sore throat Card Denies chest pain, Denies irregular heart rhythm, Denies palpitations and Denies dyspnea Resp Denies chest congestion, Denies cough and Denies dyspnea GI Reports abdominal pain (recurrent, over the RUQ), Denies constipation, Denies dysphagia, Denies heartburn, Denies diarrhea, Reports nausea (at times), Denies odynophagia and Denies vomiting Denies hematuria, Denies urinary frequency, Denies dysuria and Denies urinary urgency Musc Denies back pain, Denies arthralgias and Denies neck pain Skin/Breast Denies rash Neuro Denies dizziness, Denies headache(s) and Denies paresthesias Psych Denies anxiety and Denies depression Endo Denies fatigue and Denies palpitations Joseluis/Lymph Denies easy bruising Physical exam (Primary Care) Vital Signs: Last Vital Signs Pulse 78 08/27/24 13:11 BP 110/68 08/27/24 13:11 Pulse Ox 98 08/27/24 13:11 Oxygen Delivery Method Room Air 08/27/24 13:11 BMI result Body Mass Index 18.9 Tobacco/Smoking Status: Tobacco use Status Tobacco use date assessed 08/27/24 08/27/24 13:18 Patient Tobacco Use Status Current everyday Tobacco 08/27/24 13:18 Tobacco use type Cigarette 08/27/24 13:18 e-Cigarette/Vaping Use Never Used 08/27/24 13:18 PHQ-9: PHQ-9 Score PHQ-9: Total score 0 08/27/24 13:47 Depression Screening Interpretation: Negative Thrive Assessment: Date of Thrive Assessment Date Thrive assessed 08/27/24 08/27/24 13:18 Currently or been in a relationship where the following occur: I choose not to answer Const General: no acute distress and alert HENMT Ears: TM's normal bilaterally and EAC's normal Throat: Yes posterior oropharynx normal and Yes tonsils normal (no TP congestion) Neck Neck: Yes supple and No lymphadenopathy Thyroid: Thyroid normal Resp Auscultation: clear to auscultation bilaterally, no rales and no wheezes Cardio Rate: regular rate Rhythm: regular rhythm Heart sounds: no murmurs GI Palpation (GI): Soft to palpation, Tenderness to palpation present (GI) (mild) in the RUQ, no guarding and No Rebound tenderness present Auscultation: normal bowel sounds General: Yes no CVA tenderness Back/Spine/Pelvis Back: no CVA tenderness Thoracic/Lumbar Spine: No lumbar spinal tenderness Skin Rashes: no rashes Extrem General: Yes no clubbing, cyanosis or edema Results Reviewed Results Reviewed: Laboratory Tests 08/26/24 07:25 Sodium 141 Potassium 4.2 Creatinine 0.71 Estimated GFR > 60 Fasting Glucose 94 Calcium 9.9 AST 29 ALT 25 Triglycerides 88 Cholesterol 176 LDL Cholesterol, Calc 96 HDL Cholesterol 63 Coding Level of Care Code Est Pt Level 4 (52851) Complex EM visit Add On G2211 Diagnoses Pure hypercholesterolemia E78.00 Common bile duct dilation K83.8 Staghorn calculus N20.0 Osteoporosis without current pathological fracture, unspecified osteoporosis type M81.0 Osteoporosis type: unspecified Presence of current pathological fracture: without current pathological fracture History of opioid abuse F11.11 Drug-induced constipation K59.03 Constipation type: drug induced constipation Primary insomnia F51.01 Smoker F17.200 Additional Codes PHQ-9 - 49101 - PHQ-9 Billing: Yes ([id number]) Assessment & Plan Assessment & Plan (1) Pure hypercholesterolemia: Code(s): E78.00 - Pure hypercholesterolemia, unspecified Category: Medical Plan: Results of her labs done yesterday reviewed and discussed with patient Reinforced low cholesterol diet Continue Atorvastatin 80 mg QD Will recheck her labs and fasting lipids in 4 months for follow up (2) Common bile duct dilation: Code(s): K83.8 - Other specified diseases of biliary tract Category: Medical Plan: Abdominal and pelvic CT done at the ER last year revealed (+) intrahepatic and extrahepatic biliary ductal dilatation and pancreatic ductal dilatation She underwent an abdominal MRI in February 2024, which revealed diffuse abnormal dilatation of the common bile duct measuring up to 8.0 mm in diameter without filling defects and mild dilatation of the pancreatic duct. These findings could be due to duodenal papillary stenosis or sphincter of Oddi dyskinesia. Exam also noted (+) mild hepatomegaly and marked diffuse fecal distention of the ascending and transverse colon Patient underwent EGD and colonoscopy in May [address] Cuevas and EGD revealed (+) gastritis, esophagitis and duodenitis - biopsies taken all came back normal Colonoscopy findings included colonic polyps, with the rectal polyp coming back as tubular adenoma on pathology; (+) internal hemorrhoids and melanosis coli Patient was advised to undergo repeat colonoscopy in 6 to 12 months due to the number and size of her polyps Follow up with GI (Dr. Cuevas) as scheduled (3) Staghorn calculus: Code(s): N20.0 - Calculus of kidney Category: Medical Plan: She also had bilateral nonobstructing renal calculi, the largest at 2.4 cm at the left upper pole - staghorn calculus S/P ESWL back in May 2024 with no recurrence of kidney stones passage or pain since Follow up with urology as scheduled (4) Osteoporosis: Code(s): M81.0 - Age-related osteoporosis without current pathological fracture Category: Medical Qualifiers: Osteoporosis type: unspecified Presence of current pathological fracture: without current pathological fracture Qualified Code(s): M81.0 - Age- related osteoporosis without current pathological fracture Plan: Her most recent BMD done back on 12/29/2023 revealed (+) osteoporosis based on the lowest T-score value of -2.7 in the lumbar spine - this represents about an 8% decline in her BMD from 2021, when her T-score was -2.1 Patient relates that she had a complete hysterectomy done years ago when she was young and this may be the main reason for her advanced osteoporosis Her urine NTx came back normal She was referred to and seen by endocrinology back in February 2024 - was advised to speak to and see her controls design engineer to discuss option of transdermal estrogen She was sent for additional workups by Endocrinology and recommendation is to consider starting her on an anti-resorptive Tx like transdermal estrogen or Evista. Would avoid the use of bisphosphonate in this patient at age 48. Follow up with endocrinology as scheduled (5) History of opioid abuse: Comment: taking suboxone Code(s): F11.11 - Opioid abuse, in remission Category: Medical Plan: Continue Suboxone 8-2 mg 10 mg?sublingually once a day Follow-up with the Suboxone clinic as scheduled (6) Constipation: Code(s): K59.00 - Constipation, unspecified Category: Medical Qualifiers: Constipation type: drug induced constipation Qualified Code(s): K59.03 - Drug induced constipation Plan: This is most likely related to her Suboxone Tx She is again encouraged to increase her oral fluids and dietary fiber Continue OTC Senna PRN and Miralax 17 gm QD (7) Primary insomnia: Code(s): F51.01 - Primary insomnia Category: Medical Plan: Sleep hygiene reinforced (8) Smoker: Code(s): F17.200 - Nicotine dependence, unspecified, uncomplicated Category: Social Hx Plan: Patient is counseled again on complete smoking cessation Per request, she was started again on Varenicline at her last visit to help her quit smoking Plan Follow up in 4 months Orders: Orders Complete Blood Count Auto Diff 4 Months D64.9 - Anemia, unspecified TSH reflex Free T4 4 Months E78.00 - Pure hypercholesterolemia, unspecified Lipid Panel 4 Months E78.00 - Pure hypercholesterolemia, unspecified Comprehensive [place]. Panel Fast 4 Months E78.00 - Pure hypercholesterolemia, unspecified UA CC w/rflx Micro + Cult 4 Months R30.0 - Dysuria Medications: Refilled atorvastatin 80 mg PO BEDTIME 90 days 90 tabs 1RF
--- OUTSIDE RECORDS SUMMARY | 2024-08-27 14:12 | XMS_ITS | Clinical Summary ---
Author Organization [facility] Address [address] [place] [address] Care Team Providers Care Radio Sales Account Executive Name Role Phone Beto Condon BROOKS Primary Care Provider [phone] Source Comments PLEASE NOTE, if this patient [...] Overview (05/14/2013): Lumbar Done by Neurosurgery at [facility] Family History Medical History Relation Name [...] drink a few months ago, vodca, at [employer] now Social Connections Answer Date Recorded Social [...] Not on file Insurance [employer] Care Teams Radio Sales Account Executive Relationship Specialty Start Date End Date Beto Condon FNP [address] [place] [address] PCP - General Family Medicine, DIRECTOR OF FIELD SERVICE 11/19/14
== END 2024-08-27 13:50 | disposition home or self-care (01) ==
LOC: HO.HMCH 13:10
PROVIDERS: PCP Internal Medicine; Visit Provider Internal Medicine
DX: E78.00 Pure hypercholesterolemia, unspecified (principal); F11.11 Opioid abuse, in remission; K83.8 Other specified diseases of biliary tract; N20.0 Calculus of kidney; M81.0 Age-related osteoporosis without current pathological fracture; K59.03 Drug induced constipation; F51.01 Primary insomnia; F17.200 Nicotine dependence, unspecified, uncomplicated

== ENCOUNTER → 2024-08-27 13:09 | Outpatient (BNVA) | payer BC, SELFPAY | PROVIDERS: PCP Internal Medicine; Visit Provider Internal Medicine | DX: E78.00 Pure hypercholesterolemia, unspecified (principal); K83.8 Other specified diseases of biliary tract; N20.0 Calculus of kidney; M81.0 Age-related osteoporosis without current pathological fracture; F11.20 Opioid dependence, uncomplicated; K59.03 Drug induced constipation; F51.01 Primary insomnia; F17.200 Nicotine dependence, unspecified, uncomplicated; Z79.899 Other long term (current) drug therapy | CPT/HCPCS: 96127 ==

== ENCOUNTER → 2024-09-02 14:09 | Outpatient (AMB) | payer BC, SELFPAY ==
[2024-09-02 14:16] VITALS: BP 120/57; PULSE 70; BMI 18.3
--- NOTE | 2024-09-02 14:16 | A.OFFVIS_ITS ---
Vital Signs 09/02/24 14:16 Height 5 ft 7 in Weight 116 lb 13.52 oz BMI 18.3 BP 120/57 L Blood Pressure Location Lt brachial Position Sitting Pulse 70 Intake Visit Reasons: f/u dilated bile duct Intake Note: Korin presents in the office as a follow up for dilated bile duct. CC: She states that insurance was not covering trulance and wants to know if there is something else that she can take she she does not seem to feel a difference while taking this. She states she was okay with the Senna. She states that she usually has constipation but once in a while she will have loose stools. Duck Bill Operator Required: No Allergies Penicillins [PENICILLINS] Adverse Reaction (Intermediate, Verified 09/02/24 14:17) vomiting/diarrhea/diaphoresis HPI HPI f/u dilated bile duct: Details: 49 yr old f here for f/u for dilated CBD thought due to suboxone and colon polyps MRI 07/09- stable CBD no masses, or strictures EGD/[place]: Endoscopy Findings: gastritis esophagitis duodenitis Colonoscopy Findings: colon polyps internal hemorrhoids melansosi coli PATH SSA and TA removed erosive esophagitis INTERIM: Occ RUq pain no nausea or vomiting having issues with constipation, feels linaclotide 145 mcg not effective at all levisn works well if she has the episodic RUq pain she is also seeing urology for her left sided stghorn calculus EXAM: EXAM: GENERAL: The patient is thin VITAL SIGNS:see workflow HEENT: Nonicteric sclerae, PERRLA, EOMI. Oropharynx clear. Moist mucous membranes. Conjunctivae appear well perfused. No thyroid mass. CHEST: Chest wall is nontender. HEART: Regular rate and rhythm without murmurs. LUNGS: Clear to auscultation bilaterally. ABDOMEN: Soft, positive bowel sounds, nontender, no organomegaly.no flank tenderness SKIN: No rash, no excessive bruising, petechiae, or purpura. NEUROLOGIC: Cranial nerves II-XII intact without motor/sensory deficit. Psych: normal affect A/P: 1/ colonic polyps 2/ dilated CBD, no features as yet to prove SOD type I, or II PLAN: /1 - repeat colo 3-6 months 2/- monitor LFT, and symptoms, if worsen then ERCP 3/ cont with levsin for the moment 4/ try higher dose of linaclotide and see if better, maybe motegrity if no better and if covered PFSH Medical History Hx of nephrolithotomy with removal of calculi Seizure Smoker Primary insomnia History of opioid abuse Pure hypercholesterolemia Surgical History Hx of lithotripsy H/O adenoidectomy History of cardiac catheterization History of shoulder surgery History of removal of cyst History of microdiscectomy S/P YU-BSO (total abdominal hysterectomy and bilateral salpingo-oophorectomy) (~2002) Family History Father Vascular disease Myocardial infarction Mother COPD (chronic obstructive pulmonary disease) Lung cancer Brother Myocardial infarction Sister Stroke Paternal Grandmother Stroke Other Substance abuse Social History Housing: Apartment Alcohol intake: former Patient Tobacco Use Status: Current everyday Tobacco user Tobacco use type: Cigarette Cigarette Packs Per Day: 0.5 Cigarettes Per Day: 10.0 e-Cigarette/Vaping Use: Never Used Second Hand Smoke Exposure: Yes service: No Current occupational status: employed Cognitive needs: No Hearing needs: Yes (Left ear hearing loss per pt) Vision needs: Yes Physical Exam Vital Signs: Last Vital Signs Pulse 70 09/02/24 14:16 BP 120/57 L 09/02/24 14:16 BMI result Body Mass Index 18.3 Assessment & Plan Assessment & Plan (1) Common bile duct dilation: Code(s): K83.8 - Other specified diseases of biliary tract Category: Medical Plan: as above Medications: New linaclotide 290 mcg PO DAILY 30 caps 1RF sodium,potassium,mag sulfates 17.5-3.13-1.6 gram (Suprep Bowel Prep Kit) DILUTE; drink 1/2 at 6-8 pm and half at 11 PM- 1AM 354 mL 0RF Discontinued plecanatide (Trulance) Discontinued Reason: Doctor's Order 3 mg PO DAILY 30 tabs 3RF Coding Level of Care Code Est Pt Level 3 (94233) Diagnoses Common bile duct dilation K83.8
--- OUTSIDE RECORDS SUMMARY | 2024-09-02 14:19 | XMS_ITS | Clinical Summary ---
Author Organization [facility] Address [address] [place] [address] Care Team Providers Care Drying Machine Receiver Name Role Phone Beto Condon BROOKS Primary Care Provider [phone] Source Comments PLEASE NOTE, if this patient [...] Overview (05/14/2013): Lumbar Done by Neurosurgery at [facility] Family History Medical History Relation Name [...] drink a few months ago, vodca, at [facility] now Social Connections Answer Date Recorded Social [...] Not on file Insurance [employer] Care Teams Drying Machine Receiver Relationship Specialty Start Date End Date Beto Condon FNP [address] [place] [address] PCP - General Family Medicine, DELIVERY ROOM CLERK 11/19/14
== END ==
LOC: HO.HGI 14:10
PROVIDERS: PCP Internal Medicine; Visit Provider Internal Medicine Gastroenterology
DX: K83.8 Other specified diseases of biliary tract (principal)
CPT/HCPCS: 99213

== ENCOUNTER → 2024-09-02 14:09 | Outpatient (BNVA) | payer BC, SELFPAY | PROVIDERS: PCP Internal Medicine; Visit Provider Internal Medicine Gastroenterology ==

== ENCOUNTER 2024-10-10 14:15 | Outpatient (REF) | payer BC, SELFPAY ==
--- NOTE | ~2024-10-10 | US_ITS ---
EXAMINATION: US KIDNEY BILATERAL HISTORY: N20.0 - Calculus of kidney TECHNIQUE: Real-time grayscale ultrasound imaging of the kidneys was performed and images were reviewed. COMPARISON: Correlation is made with an MRI of the abdomen dated 07/10/[address] of the abdomen with contrast dated 01/02/2024. FINDINGS: Right kidney: The right kidney measures 10.9 x 4.7 x 5.5 cm. Renal parenchymal echotexture and thickness are normal. There are no masses. There are nonobstructing calculi at the upper pole measuring 3 x 3 x 3 mm and at the lower pole measuring 3 x 2 x 2 mm. There is no hydronephrosis. Left Kidney: The left kidney measures 10.0 x 5.3 x 5.4 cm. Renal parenchymal echotexture and thickness are normal. There are no masses. There are multiple nonobstructing calculi at the upper pole measuring 4 x 3 x 3 mm, 4 x 3 x 6 mm, and 3 x 2 x 3 mm. There are additional nonobstructing calculi in the interpolar region measuring 3 x 3 x 2 mm at the lower pole measuring 4 x 3 x 4 mm. There is no hydronephrosis. US/US renal BI IMPRESSION: Bilateral nephrolithiasis as described. No hydronephrosis. Electronically signed by: Jared Foy MD 10/10/2024 03:02 PM EDT
--- OUTSIDE RECORDS SUMMARY | 2024-10-10 17:26 | XMS_ITS | Clinical Summary ---
Author Organization [facility] Address [address] [place] [address] Care Team Providers Care Radiator Mechanic Name Role Phone Beto Condon BROOKS Primary Care Provider [phone] Source Comments PLEASE NOTE, if this patient [...] Overview (05/14/2013): Lumbar Done by Neurosurgery at [facility] Family History Medical History Relation Name [...] drink a few months ago, vodca, at [employer] now Social Connections Answer Date Recorded Social [...] 105 08/12/2013 11:15 AM EDT Temperature 36.7 C (98.1 F) 08/12/2013 11:15 AM EDT Respiratory Rate 14 08/12/2013 11:15 AM EDT Oxygen Saturation - - Inhaled Oxygen Concentration - - Weight 70.3 kg (155 lb) 08/12/2013 11:15 AM EDT Height 170.2 cm (5' 7 ) 06/10/2013 1:14 PM EST Body Mass Index 24.28 06/10/2013 1:14 PM EST Plan of Treatment Not on file Insurance [employer] Care Teams Radiator Mechanic Relationship Specialty Start Date End Date Beto Condon FNP [address] [place] [address] PCP - General Family Medicine, POLICE INVESTIGATOR 11/19/14
== END 2024-10-10 14:16 | disposition home or self-care (01) ==
LOC: HO.HMGCX 14:15
PROVIDERS: PCP Internal Medicine; Visit Provider Urology
DX: N20.0 Calculus of kidney (principal)
CPT/HCPCS: 76775

== ENCOUNTER → 2024-10-10 14:24 | Outpatient (BNV) | payer BC, SELFPAY | PROVIDERS: PCP Internal Medicine; Visit Provider Radiology Diagnostic Radiology | DX: N20.0 Calculus of kidney (principal) | CPT/HCPCS: 76775 ==

== ENCOUNTER 2024-10-25 09:09 | Outpatient (AMB) | payer BC, SELFPAY ==
--- NOTE | 2024-10-24 19:52 | MHC.OFFVIS ---
Intake Visit Reasons: US/litholink follow up Intake Note: Patient presents to office today for a follow up/US/[facility] Renal US 10/10 [facility] 09/10 Urology Medications: None Antibiotic Allergy: None Blood Thinner: None Retail Wireless Sales Representative Required: No Accompanied by: Self / Same As Patient Allergies Penicillins (PENICILLINS) Adverse Reaction (Intermediate, Verified 10/25/24 09:28) vomiting/diarrhea/diaphoresis HPI Comments Details: 10/25/24--followed for nephrolithiasis--follow-up renal ultrasound in 24 hour urine. had left ESWL 05/28/2024, monitor versus treatment with repeat as well or ureteroscopy Ultrasound renal-10/10/2024---nonobstructing calculi at the upper pole RK-- 3 x 3 x 3mm and lower pole measuring 3 x 2 x 2 mm. There is no hydronephrosis. Left Kidney: upper pole 4 x 3 x 3 mm, 4 x 3 x 6 mm, and 3 x 2 x 3 mm. Discussed 24 hour urine results collected:09/10/24 Total volume 1.93 L, Calcium 92 mg; Oxalate 22 mg, Citrate 434 mg, Sodium 51. Instructed on importance of fluid intake. 07/17/24-- s/p Left ESWL 05/28/24--had Orbit Xray --- 7 mm calcification noted renal fossae. 49-year-old female presenting with nephrolithiasis. She has a history of kidney stones potentially composed of calcium oxalate. She previously performed a 24-hour urine collection for associated osteoporosis management. In review of her chart there is mention of a dilated bile duct and recent colonoscopy necessitating surgical clips. Recent diagnostic imaging included MRI and X-ray. Plans for ultrasound follow-up were discussed to better assess kidney status and evaluate any residual stones. Results - Tests and Diagnostics: - MRI of the abdomen: No stones visualized, kidneys unremarkable. - Prior Orbit X-ray: 7 cm left upper quadrant calcification associated with left kidney. 03/29/24-Korin is a 48-year-old female who is for evaluation due to left kidney stone 2.4 cm. The patient complains of abdominal pain and is being followed by GI. Korin is on Suboxone history of opioid and alcohol disorder. Comorbidity nicotine use. Pt complains of Discussed ESWL. 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 [facility] Medical History Hx of nephrolithotomy with removal of calculi Seizure Smoker Primary insomnia History of opioid abuse Pure hypercholesterolemia Surgical History Hx of lithotripsy H/O adenoidectomy History of cardiac catheterization History of shoulder surgery History of removal of cyst History of microdiscectomy S/P YU-BSO (total abdominal hysterectomy and bilateral salpingo-oophorectomy) (~2002) Family History Father Vascular disease Myocardial infarction Mother COPD (chronic obstructive pulmonary disease) Lung cancer Brother Myocardial infarction Sister Stroke Paternal Grandmother Stroke Other Substance abuse Social History Housing: Apartment Alcohol intake: former Patient Tobacco Use Status: Current everyday Tobacco user Tobacco use type: Cigarette Cigarette Packs Per Day: 0.5 Cigarettes Per Day: 10.0 e-Cigarette/Vaping Use: Never Used Second Hand Smoke Exposure: Yes service: No Current occupational status: employed Cognitive needs: No Hearing needs: Yes (Left ear hearing loss per pt) Vision needs: Yes Results AMB Urinalysis, Automated UA Leukoctes 0 Nela/uL Last Edit by Swetha Molina on 10/25/24 15:17 UA Nitrite Negative Last Edit by Swetha Molina on 10/25/24 15:17 UA Urobilinogen 3.5 mg/dL Last Edit by Swetha Molina on 10/25/24 15:17 UA Protein 0 mg/dL Last Edit by Swetha Molina on 10/25/24 15:17 UA pH 6.0 Last Edit by Swetha Molina on 10/25/24 15:17 UA Blood 0 Maxi/uL Last Edit by Swetha Molina on 10/25/24 15:17 UA Specific Mosby 1.015 Last Edit by Swetha Molina on 10/25/24 15:17 UA Ketone Negative Last Edit by Swetha Molina on 10/25/24 15:17 UA Bilirubin 0 mg/dL Last Edit by Swetha Molina on 10/25/24 15:17 UA Glucose 0 mg/dL Last Edit by Swetha Molina on 10/25/24 15:17 Results Reviewed Results Reviewed: Date of Service: 01/02/24 CT ABDOMEN AND PELVIS WITH CONTRAST CLINICAL INFORMATION: Upper abdominal pain, question pancreatitis COMPARISON: 10/22/2015 CT TECHNIQUE: Multidetector volumetric images were obtained from the superior aspect of the liver through the pubic symphysis following administration 85 mL of Omnipaque 350 intravenous contrast. Sagittal and coronal reformatted images were obtained on the technologist's workstation. Oral contrast: No This CT examination was performed using dose optimization techniques as appropriate, variously including the following: *Automated exposure control *Adjustment of mA and/or kV according to patient size (this includes techniques or standardized protocols for targeted exams where dose is matched to indication/reason for exam; i.e. extremities or head) *Use of iterative reconstruction technique DLP: 338 mGy-cm FINDINGS: TECHNOLOGY CONSULTANT: Left upper quadrant calcification LUNG BASES: Atelectasis.- LIVER, GALLBLADDER, AND BILIARY TREE: The liver is normal in size, shape, and attenuation. No focal hepatic lesion. Mild intrahepatic biliary ductal dilatation. Prominent common bile duct to 7 mm in the noncholecystectomy state. Associated pancreatic ductal dilatation. Findings appear more prominent than on 2016 nonenhanced study. PANCREAS: Pancreatic ductal dilatation to the tail, measuring 4 mm in the head. SPLEEN: Unremarkable. ADRENAL GLANDS: Unremarkable. KIDNEYS AND URETERS: The kidneys are normal in size, shape, and attenuation. No hydronephrosis or hydroureter. No perinephric stranding. 2.4 cm nonobstructing left upper pole staghorn calculus. Tiny nonobstructing right upper and left lower pole renal calculi. BLADDER: Decompressed bladder. GASTROINTESTINAL TRACT: Decompressed stomach, wall thickening not excluded. Evaluation of the bowel limited without all oral contrast. Unremarkable appendix. It is difficult to trace the lower GI tract without IV contrast but there is moderate fecal retention of the descending colon and a segment of dilated air-filled sigmoid colon measuring 5 cm. Concern for region of rectosigmoid narrowing and hyperattenuation in the left hemipelvis, coronal 5:53. ABDOMINAL WALL: No significant hernia is appreciated. LYMPH NODES: Normal. VASCULAR: Atherosclerotic calcifications of the aneurysmal aorta. Normal caliber inferior vena cava. Patent portal system. PELVIC VISCERA: Small amount of free pelvic fluid. OSSEOUS STRUCTURES: Minimal retrolisthesis L4 on L5. Degenerative changes, L4-5 and L5-S1 disc space narrowings. Redemonstration L5-S1 calcified disc bulge resulting in compression of the anterior left sided thecal sac and bilateral neuroforaminal encroachment. IMPRESSION: 1. Intrahepatic and extrahepatic biliary ductal dilatation and pancreatic ductal dilatation. Consider MRCP. 2. Bilateral nonobstructing renal calculi, largest 2.4 cm left upper pole staghorn calculus. 3. Question rectosigmoid narrowing and hyperattenuation. Consider colonoscopy. 4. Small amount of free pelvic fluid. Assessment & Plan Assessment & Plan Orders: Orders AMB Urinalysis Automated Today Z13.9 - Encounter for screening, unspecified Coding
--- OUTSIDE RECORDS SUMMARY | 2024-10-25 09:25 | XMS_ITS | Clinical Summary ---
Author Organization [facility] Address [address] [place] [address] Care Team Providers Care Bath Steward Name Role Phone Beto Condon BROOKS Primary Care Provider [phone] Source Comments PLEASE NOTE, if this patient [...] Overview (05/14/2013): Lumbar Done by Neurosurgery at [facility] Family History Medical History Relation Name [...] drink a few months ago, vodca, at [employer] now Social Connections Answer Date Recorded Social [...] Not on file Insurance [employer] Care Teams Bath Steward Relationship Specialty Start Date End Date Beto Condon FNP [address] [place] [address] PCP - General Family Medicine, PREPARING BOX TENDER 11/19/14
== END 2024-10-25 10:03 | disposition home or self-care (01) ==
LOC: HO.HUSH 09:10
PROVIDERS: PCP Internal Medicine; Visit Provider Urology
DX: Z13.9 Encounter for screening, unspecified (principal)

== ENCOUNTER → 2024-10-25 09:09 | Outpatient (BNVA) | payer BC, SELFPAY | PROVIDERS: PCP Internal Medicine; Visit Provider Urology | DX: R10.10 Upper abdominal pain, unspecified (principal) | CPT/HCPCS: 81003 ==

== ENCOUNTER 2024-11-13 16:33 | Outpatient (REF) | payer BC, SELFPAY ==
[2024-11-13 17:24] LABS: Alanine Aminotransferase 29 U/L (0-31); Albumin Level 4.6 g/dL (3.5-5.0); Alkaline Phosphatase 61 U/L (39-117); Anion Gap 13 (12-20); Aspartate Amino Transferase 33 U/L (5-31); Blood Urea Nitrogen 8 mg/dL (9-16); Calcium 9.5 mg/dL (8.4-10.2); Carbon Dioxide 25 mmol/L (22-29); Chloride 107 mmol/L (96-108); Estimated Glomerular Filt Rate > 60; Potassium 3.9 mmol/L (3.3-5.1); Sodium 141 mmol/L (135-145); Total Protein 7.0 g/dL (6.5-8.0)
== END 2024-11-13 16:34 | disposition home or self-care (01) ==
LOC: HO.LAB 16:33
PROVIDERS: PCP Internal Medicine; Visit Provider Internal Medicine Gastroenterology
DX: K75.81 Nonalcoholic steatohepatitis (NASH) (principal)
CPT/HCPCS: 36415; 80053

== ENCOUNTER 2025-01-01 06:02 | Outpatient (REF) | payer BC, SELFPAY ==
[2025-01-01 06:15] LABS: MANUAL DIFF FLAG NO
[2025-01-01 07:38] LABS: Hematocrit 35.0 % (37.0-47.0); Hemoglobin 11.8 g/dl (12.0-16.0); Imm Gran Abs Auto 0.02 X10*3/uL (0.00-0.03); Imm Gran Pct Auto 0.3 % (0.0-0.4); Lymphocytes Absolute Auto 3.1 X10*3/uL (1.2-4.9); Mean Corpuscular HGB Conc 33.7 g/dl (31.0-35.0); Mean Corpuscular Hemoglobin 30.0 pg (27.0-33.0); Mean Corpuscular Volume 89.1 fL (80.0-98.0); NRBC Abs Auto 0.000 X10*3/uL (0.0-0.012); NRBC Pct Auto 0.0 /100WBC (0.0-0.2); Platelet Count 231 X10*3/uL (160-400); Red Blood Count 3.93 X10*6/uL (4.20-5.50); White Blood Count 7.8 X10*3/uL (4.8-10.8)
[2025-01-01 08:01] LABS: Appearance Urine Cloudy; Glucose Urine UA Negative (Negative); PH 5.5 (5.0-9.0); Specific Gravity - Urine 1.020 (1.005-1.025); UMIC TRIGGER UACC YES
[2025-01-01 08:11] LABS: Alanine Aminotransferase 19 U/L (0-31); Albumin Level 4.2 g/dL (3.5-5.0); Alkaline Phosphatase 71 U/L (39-117); Anion Gap 9 (12-20); Aspartate Amino Transferase 32 U/L (5-31); Blood Urea Nitrogen 10 mg/dL (9-16); Calcium 9.8 mg/dL (8.4-10.2); Carbon Dioxide 28 mmol/L (22-29); Chloride 107 mmol/L (96-108); Cholesterol 153 mg/dL (<200); Estimated Glomerular Filt Rate > 60; HDL Cholesterol 53 mg/dL (>40); Potassium 4.2 mmol/L (3.3-5.1); Sodium 140 mmol/L (135-145); Total Protein 6.9 g/dL (6.5-8.0); Triglycerides 78 mg/dL (<150)
[2025-01-01 08:20] LABS: UACC Culture Trigger YES
[2025-01-01 09:45] LABS: Free T4 (Free Thyroxine) 1.06 ng/dL (0.71-1.85)
== END 2025-01-01 06:03 | disposition home or self-care (01) ==
LOC: HO.LAB 06:02
PROVIDERS: PCP Internal Medicine; Visit Provider Internal Medicine
DX: E78.00 Pure hypercholesterolemia, unspecified (principal); K83.8 Other specified diseases of biliary tract; N20.0 Calculus of kidney; M81.0 Age-related osteoporosis without current pathological fracture; R10.2 Pelvic and perineal pain; F11.11 Opioid abuse, in remission; K59.03 Drug induced constipation; F51.01 Primary insomnia; F17.210 Nicotine dependence, cigarettes, uncomplicated
CPT/HCPCS: 36415; 80053; 80061; 81001; 81003; 84439; 84443; 85025; 87086

== ENCOUNTER 2025-01-01 11:06 | Outpatient (AMB) | payer BC, SELFPAY ==
[2025-01-01 11:16] VITALS: BP 110/68; PULSE 72; O2SAT 97; BMI 17.4
--- NOTE | 2025-01-01 11:16 | A.OFFPC_ITS ---
Vital Signs 01/01/25 11:16 Height 5 ft 7 in Weight 111 lb 6 oz BMI 17.4 BP 110/68 Blood Pressure Location Lt brachial Position Sitting Pulse 72 Pulse Source Pulse Oximeter Pulse Oximetry (%) 97 Oxygen Delivery Method Room Air Intake Visit Reasons: 4 month Emergency Communications Dispatcher Required: No Accompanied by: Self / Same As Patient Allergies Penicillins (PENICILLINS) Adverse Reaction (Intermediate, Verified 01/01/25 11:34) vomiting/diarrhea/diaphoresis Medication List - Last Reconciled 01/01/25 by David Frost MD atorvastatin 80 mg PO BEDTIME 90 days buprenorphine-naloxone 8-2 mg 8 mg sublingual DAILY linaclotide 290 mcg PO DAILY 90 days multivit with min-folic acid 120 mcg (Adult Multivitamin Gummies) 1 tab PO DAILY sodium,potassium,mag sulfates 17.5-3.13-1.6 gram (Suprep Bowel Prep Kit) DILUTE; drink 1/2 at 6-8 pm and half at 11 PM- 1AM Tobacco use date assessed: 01/01/25 Dental Screening Dental Screen Date: 01/01/25 Did you have a dental visit in the last 12 months?: Yes Did you have a dental problem in the last 6 months where you did not have access to dental care?: No Was dental information given to patient?: Patient has dentist HPI 4 month HPI Details Patient comes in today for her follow up visit Relates (+) sudden onset of increased pain in her groin and pubic area a month ago - she initially though that she pulled a muscle then and just took some time off from work and started taking some OTC Ibuprofen as needed for symptomatic relief States that the pain resolved after a couple of days but recurred spontaneously about 1.5 to 2 weeks later and has persisted since She has noticed that walking and getting up from a sitting position seem to trigger the pain She does not recall any recent injury or trauma to her pelvic area States that she still has on and off epigastric pain, which have been going on for a while now Abdominal MRI done a few months ago revealed (+) stable mild prominence of the common bile duct without evidence of cholelithiasis or choledocholithiasis She was seen by GI a few months ago and is scheduled for repeat US next month, after which she will be seeing Dr. Cuevas in early February 2025 for GI follow up Patient is also still following up with urology regularly for her kidney stones She had lithotripsy (ESWL) done back in May 2024 and states that she's had no kidney pain since Relates (+) nausea at times that are related to her recurrent RUQ pain but she denies any vomiting and has had no changes in bowel habits lately She denies any fever, headaches or dizziness Denies any chest pains, no increased SOB Needs her Atorvastatin Rx refilled She had her follow up labs done earlier this morning - to discuss her results [facility] Medical History Hx of nephrolithotomy with removal of calculi Seizure Smoker Primary insomnia History of opioid abuse Pure hypercholesterolemia Surgical History Hx of lithotripsy H/O adenoidectomy History of cardiac catheterization History of shoulder surgery History of removal of cyst History of microdiscectomy S/P YU-BSO (total abdominal hysterectomy and bilateral salpingo-oophorectomy) (~2002) Family History Father Vascular disease Myocardial infarction Mother COPD (chronic obstructive pulmonary disease) Lung cancer Brother Myocardial infarction Sister Stroke Paternal Grandmother Stroke Other Substance abuse Social History Housing: Apartment Alcohol intake: former Patient Tobacco Use Status: Current everyday Tobacco user Tobacco use type: Cigarette Cigarette Packs Per Day: 0.5 Cigarettes Per Day: 10.0 e-Cigarette/Vaping Use: Never Used Second Hand Smoke Exposure: Yes service: No Current occupational status: employed Cognitive needs: No Hearing needs: Yes (Left ear hearing loss per pt) Vision needs: Yes Questionnaire PHQ-9 Over the last 2 weeks, how often have you been bothered by any of the following problems? Depression Screening Interpretation: Negative Depression Screening Done: Yes Source: Developed by Drs. Jared Lyn, Darby Echeverria, Adam Casiano and colleagues, with an educational tania from [employer]. Thrive Questionnaire Date Thrive assessed: 05/07/24 I am a: Patient What is your living situation today?: I have a steady place to live Within the past 12 months, did the food you bought not last and you didn't have the money to get more?: I choose not to answer this question Within the past 12 months, did you worry whether your food would run out before you got money to buy more?: I choose not to answer this question Do you have trouble paying for medicines?: Yes Do you have trouble getting transportation to medical appointments?: No Do you have trouble paying your heating and electricity bill?: No Do you have trouble taking care of your child, family member or friend?: No Do you have trouble with day-to-day activities such as bathing, preparing meals, shopping, managing finances, etc.?: No Are you currently unemployed and looking for a job?: No Are you interested in more education?: No Please select the resources that you would like help with: None Currently or been in a relationship where the following occur: I choose not to answer THRIVE Score: 0 AUDIT C Alcohol Use Questionnaire (AUDIT-C) 1. How often do you have a drink containing alcohol?: Never 3. How often do you have six or more drinks on one occasion?: Never Total Score: 0 Score Reviewed/Action Taken: Yes ALEN-7 AMB Questionnaire ALEN-7 Date ALEN - 7 assessed: 08/27/24 Source: Developed by Drs. Jared Lyn, Darby Echeverria, Adam Casiano and colleagues, with an educational tania from [employer]. Review of Systems Const Denies chills, Denies fatigue, Denies fever(s) and Denies headache(s) ENT Denies dysphagia, Denies dizziness, Denies otalgia, Denies headache(s), Denies neck pain, Denies odynophagia and Denies sore throat Card Denies chest pain, Denies irregular heart rhythm, Denies palpitations and Denies dyspnea Resp Denies chest congestion, Denies cough and Denies dyspnea GI Reports abdominal pain (recurrent, over the RUQ), Denies constipation, Denies dysphagia, Denies heartburn, Denies diarrhea, Reports nausea (at times), Denies odynophagia and Denies vomiting Details: (+) recurrent increased sharp pains in her groin and pubic area - see HPI Denies hematuria, Denies urinary frequency, Denies dysuria and Denies urinary urgency Musc Denies back pain, Denies arthralgias and Denies neck pain Skin/Breast Denies rash Neuro Denies dizziness, Denies headache(s) and Denies paresthesias Psych Denies anxiety and Denies depression Endo Denies fatigue and Denies palpitations Joseluis/Lymph Denies easy bruising Physical exam (Primary Care) Vital Signs: Last Vital Signs Pulse 72 01/01/25 11:16 BP 110/68 01/01/25 11:16 Pulse Ox 97 01/01/25 11:16 Oxygen Delivery Method Room Air 01/01/25 11:16 BMI result Body Mass Index 17.4 Tobacco/Smoking Status: Tobacco use Status Tobacco use date assessed 01/01/25 01/01/25 11:17 Patient Tobacco Use Status Current everyday Tobacco 01/01/25 11:17 Tobacco use type Cigarette 01/01/25 11:17 e-Cigarette/Vaping Use Never Used 01/01/25 11:17 Depression Screening Interpretation: Negative Thrive Assessment: Date of Thrive Assessment Date Thrive assessed 05/07/24 01/01/25 11:17 Currently or been in a relationship where the following occur: I choose not to answer Const General: no acute distress and alert HENMT Ears: TM's normal bilaterally and EAC's normal Throat: Yes posterior oropharynx normal and Yes tonsils normal (no TP congestion) Neck Neck: Yes supple and No lymphadenopathy Thyroid: Thyroid normal Resp Auscultation: clear to auscultation bilaterally, no rales and no wheezes Cardio Rate: regular rate Rhythm: regular rhythm Heart sounds: no murmurs GI Palpation (GI): Soft to palpation, Tenderness to palpation present (GI) (mild) in the RUQ, no guarding and No Rebound tenderness present Auscultation: normal bowel sounds General: Yes no CVA tenderness Back/Spine/Pelvis Back: no CVA tenderness Thoracic/Lumbar Spine: No lumbar spinal tenderness Skin Rashes: no rashes Extrem General: Yes no clubbing, cyanosis or edema Results Reviewed Results Reviewed: Laboratory Tests 01/01/25 01/01/25 06:10 06:13 WBC 7.8 Hgb 11.8 L Hct 35.0 L Plt Count 231 D Sodium 140 Potassium 4.2 Creatinine 0.66 Estimated GFR > 60 Fasting Glucose 91 Calcium 9.8 AST 32 H ALT 19 Triglycerides 78 Cholesterol 153 LDL Cholesterol, Calc 85 HDL Cholesterol 53 TSH 4.85 H Free T4 1.06 Ur Specific Twain 1.020 Urine Protein Negative Urine Glucose (UA) Negative Urine Blood Moderate (2+) H Urine Nitrite Negative Ur Leukocyte Esterase Small (1+) H Coding Level of Care Code Est Pt Level 4 (34609) Diagnoses Pure hypercholesterolemia E78.00 Common bile duct dilation K83.8 Staghorn calculus N20.0 Osteoporosis without current pathological fracture, unspecified osteoporosis type M81.0 Osteoporosis type: unspecified Presence of current pathological fracture: without current pathological fracture Pelvic pain R10.2 History of opioid abuse F11.11 Drug-induced constipation K59.03 Constipation type: drug induced constipation Primary insomnia F51.01 Smoker F17.200 Assessment & Plan Assessment & Plan (1) Pure hypercholesterolemia: Code(s): E78.00 - Pure hypercholesterolemia, unspecified Category: Medical Plan: Results of her labs done earlier this morning reviewed and discussed with patient Reinforced low cholesterol diet Continue Atorvastatin 80 mg QD Will recheck her labs and fasting lipids in 4 months for follow up (2) Common bile duct dilation: Code(s): K83.8 - Other specified diseases of biliary tract Category: Medical Plan: Abdominal and pelvic CT done at the ER last year revealed (+) intrahepatic and extrahepatic biliary ductal dilatation and pancreatic ductal dilatation She underwent an abdominal MRI in February 2024, which revealed diffuse abnormal dilatation of the common bile duct measuring up to 8.0 mm in diameter without filling defects and mild dilatation of the pancreatic duct. These findings could be due to duodenal papillary stenosis or sphincter of Oddi dyskinesia. Exam also noted (+) mild hepatomegaly and marked diffuse fecal distention of the ascending and transverse colon Patient underwent EGD and colonoscopy in May [address] Cuevas and EGD revealed (+) gastritis, esophagitis and duodenitis - biopsies taken all came back normal Colonoscopy findings included colonic polyps, with the rectal polyp coming back as tubular adenoma on pathology; (+) internal hemorrhoids and melanosis coli Patient was advised to undergo repeat colonoscopy in 6 to 12 months due to the n umber and size of her polyps She is currently scheduled for repeat sonogram next month and will be seeing Dr. Cuevas for GI follow up in early February 2025 (3) Staghorn calculus: Code(s): N20.0 - Calculus of kidney Category: Medical Plan: She also had bilateral nonobstructing renal calculi, the largest at 2.4 cm at the left upper pole - staghorn calculus S/P ESWL back in May 2024 with no recurrence of kidney stones passage or pain since Follow up with urology as scheduled (4) Osteoporosis: Code(s): M81.0 - Age-related osteoporosis without current pathological fracture Category: Medical Qualifiers: Osteoporosis type: unspecified Presence of current pathological fracture: without current pathological fracture Qualified Code(s): M81.0 - Age- related osteoporosis without current pathological fracture Plan: Her most recent BMD done back on 12/29/2023 revealed (+) osteoporosis based on the lowest T-score value of -2.7 in the lumbar spine - this represents about an 8% decline in her BMD from 2021, when her T-score was -2.1 Patient relates that she had a complete hysterectomy done years ago when she was young and this may be the main reason for her advanced osteoporosis Her urine NTx came back normal She was referred to and seen by endocrinology back in February 2024 - was advised to speak to and see her railroad dispatcher to discuss option of transdermal estrogen She was sent for additional workups by Endocrinology and recommendation is to consider starting her on an anti-resorptive Tx like transdermal estrogen or Evista. Would avoid the use of bisphosphonate in this patient at age 48. Follow up with endocrinology as scheduled (5) Pelvic pain: Code(s): R10.2 - Pelvic and perineal pain Category: Medical Plan: It is unclear at this time what is the etiology or source of her recent r ecurrent sharp pains in her groin and pubic area Will send her for pelvic x-rays, bilateral hip x-rays and lumbar spine x-rays RADHA for further evaluation (6) History of opioid abuse: Comment: taking suboxone Code(s): F11.11 - Opioid abuse, in remission Category: Medical Plan: Continue Suboxone 8-2 mg 10 mg?sublingually once a day Follow-up with the Suboxone clinic as scheduled (7) Constipation: Code(s): K59.00 - Constipation, unspecified Category: Medical Qualifiers: Constipation type: drug induced constipation Qualified Code(s): K59.03 - Drug induced constipation Plan: This is most likely related to her Suboxone Tx She is again encouraged to increase her oral fluids and dietary fiber intake Continue OTC Senna PRN and Miralax 17 gm QD (8) Primary insomnia: Code(s): F51.01 - Primary insomnia Category: Medical Plan: Sleep hygiene reinforced (9) Smoker: Code(s): F17.200 - Nicotine dependence, unspecified, uncomplicated Category: Social Hx Plan: Patient is counseled again on complete smoking cessation Per request, she was started again on Varenicline at her last visit to help her quit smoking Plan Follow up in 4 months Orders: Orders XR lumbar spine 2-3V 01/01/25 M54.50 - Low back pain, unspecified Comprehensive [place]. Panel Fast 4 Months E78.00 - Pure hypercholesterolemia, unspecified Lipid Panel 4 Months E78.00 - Pure hypercholesterolemia, unspecified XR hip BI w PEL1V 01/01/25 M25.551 - Pain in right hip, M25.552 - Pain in left hip, R10.2 - Pelvic and perineal pain Complete Blood Count Auto Diff 4 Months D64.9 - Anemia, unspecified Medications: Refilled atorvastatin 80 mg PO BEDTIME 90 tabs 1RF 90 days
--- OUTSIDE RECORDS SUMMARY | 2025-01-01 14:21 | XMS_ITS | Clinical Summary ---
Author Organization [facility] Address [address] [place] [address] Care Team Providers Care Geophysical Operator Name Role Phone Beto Condon BROOKS Primary Care Provider [phone] Source Comments PLEASE NOTE, if this patient [...] Overview (05/14/2013): Lumbar Done by Neurosurgery at [facility] Family History Medical History Relation Name [...] drink a few months ago, vodca, at [employer] now Social Connections Answer Date Recorded Social [...] Not on file Insurance [employer] Care Teams Geophysical Operator Relationship Specialty Start Date End Date Beto Condon FNP [address] [place] [address] PCP - General Family Medicine, EARTH OBSERVATIONS CHIEF SCIENTIST 11/19/14
== END 2025-01-01 11:46 | disposition home or self-care (01) ==
LOC: HO.HMCH 11:07
PROVIDERS: PCP Internal Medicine; Visit Provider Internal Medicine
DX: E78.00 Pure hypercholesterolemia, unspecified (principal); F11.11 Opioid abuse, in remission; K83.8 Other specified diseases of biliary tract; N20.0 Calculus of kidney; M81.0 Age-related osteoporosis without current pathological fracture; R10.2 Pelvic and perineal pain; K59.03 Drug induced constipation; F51.01 Primary insomnia; F17.200 Nicotine dependence, unspecified, uncomplicated

== ENCOUNTER 2025-01-29 08:46 | Outpatient (REF) | payer BC, SELFPAY ==
--- NOTE | ~2025-01-29 | US_ITS ---
CLINICAL HISTORY: R10.11 - Right upper quadrant pain --- Additional Notes or Special Instructions: ruq pain pls assess biliary path Limited abdominal ultrasound Comparison: MR/SR - MR ABDOMEN WITHOUT THEN WITH IV CONTRAST - 07/10/24 14:00 EDT MR/LA/SR - MR ABDOMEN WITHOUT THEN WITH IV CONTRAST - 02/27/24 09:[address]/SR - CT ABDOMEN PELVIS WITH IV CONTRAST - 01/02/24 08:09 EDT Findings: The liver is upper limit of normal size, measuring 17.5 cm in length. Normal echogenicity without focal lesions. Normal hepatopetal flow is seen within the portal vein. The common bile duct is dilated, measuring 0.7 cm. There is also intrahepatic biliary ductal dilatation. Ductal dilatation was also present on the prior studies. Ductal dilatation is similar to the prior studies. No cholelithiasis. No wall thickening or pericholecystic fluid. Negative sonographic Dewey sign. The right kidney is normal in echogenicity and size, measuring 10.8 cm in length. No hydronephrosis. Nephrolithiasis measures up to 3 mm. The main pancreatic duct is dilated, measuring up to 0.5 cm. Dilation is similar to the prior studies. Impression: Negative for acute cholecystitis. Persistent intrahepatic and extrahepatic biliary ductal dilatation and dilation of the main pancreatic duct. This document has been electronically signed by: Vy Willis MD on 01/30/2025 14:13:15
--- OUTSIDE RECORDS SUMMARY | 2025-01-29 09:20 | XMS_ITS | Clinical Summary ---
Author Organization [facility] Address [address] [place] [address] Care Team Providers Care Under Sheriff Name Role Phone Beto Condon BROOKS Primary Care Provider [phone] Source Comments PLEASE NOTE, if this patient [...] Overview (05/14/2013): Lumbar Done by Neurosurgery at [facility] Family History Medical History Relation Name [...] drink a few months ago, vodca, at [email or web address] now Social Connections Answer Date Recorded Social [...] Not on file Insurance [employer] Care Teams Under Sheriff Relationship Specialty Start Date End Date Beto Condon FNP [address] [place] [address] PCP - General Family Medicine, [facility] STITCHER 11/19/14
== END 2025-01-29 08:47 | disposition home or self-care (01) ==
LOC: HO.US 08:46
PROVIDERS: PCP Internal Medicine; Visit Provider Internal Medicine Gastroenterology
DX: R10.11 Right upper quadrant pain (principal)
CPT/HCPCS: 76705

== ENCOUNTER → 2025-01-29 08:49 | Outpatient (BNV) | payer BC, SELFPAY | PROVIDERS: PCP Internal Medicine; Visit Provider Radiology Diagnostic Radiology | DX: K83.8 Other specified diseases of biliary tract (principal); K86.89 Other specified diseases of pancreas | CPT/HCPCS: 76705 ==

== ENCOUNTER 2025-02-17 10:04 | Outpatient (AMB) | payer BC, SELFPAY ==
--- NOTE | 2025-02-17 10:28 | A.OFFVIS_ITS ---
Vital Signs 02/17/25 10:32 Height 5 ft 7 in Weight 112 lb 6.972 oz BMI 17.6 BP 104/48 L Blood Pressure Location Lt brachial Position Sitting Pulse 63 Intake Visit Reasons: f/u l/s 09/03 Intake Note: Korin presents in the office as a follow up. CC: She wants to discuss switching prep to the pill form - she feels like the suprep effected her from her last colonoscopy. [employer] Required: No Allergies Penicillins (PENICILLINS) Adverse Reaction (Intermediate, Verified 01/01/25 11:34) vomiting/diarrhea/diaphoresis HPI HPI f/u l/s 09/03: Details: 49 yr old f here for f/u for dilated CBD thought due to suboxone and colon polyps MRI 07/09- stable CBD no masses, or strictures EGD/Blue: Endoscopy Findings: gastritis esophagitis duodenitis Colonoscopy Findings: colon polyps internal hemorrhoids melansosi coli PATH SSA and TA removed erosive esophagitis INTERIM: she had RUQ pain attack Nov --called 911 but was ablew to avert going to ED --took levsin and it helped recent US with dilated CBD and PD, no stones weight is stable Occ RUq pain no nausea or vomiting having issues with constipation, feels linaclotide 145 mcg not effective at all levisn works well if she has the episodic RUq pain she is also seeing urology for her left sided stghorn calculus EXAM: EXAM: GENERAL: The patient is thin VITAL SIGNS:see workflow HEENT: Nonicteric sclerae, PERRLA, EOMI. Oropharynx clear. Moist mucous membranes. Conjunctivae appear well perfused. No thyroid mass. CHEST: Chest wall is nontender. HEART: Regular rate and rhythm without murmurs. LUNGS: Clear to auscultation bilaterally. ABDOMEN: Soft, positive bowel sounds, nontender, no organomegaly.no flank tenderness SKIN: No rash, no excessive bruising, petechiae, or purpura. NEUROLOGIC: Cranial nerves II-XII intact without motor/sensory deficit. Psych: normal affect A/P: 1/ colonic polyps 2/ dilated CBD, seems like SOD type 2--LFT nml--likelt from Suboxone PLAN: /1 - repeat colo with sutab 2/- cont with levsin 3/ if sx worsen then can do ERCP PFSH Medical History Hx of nephrolithotomy with removal of calculi Seizure Smoker Primary insomnia History of opioid abuse Pure hypercholesterolemia Surgical History Hx of lithotripsy H/O adenoidectomy History of cardiac catheterization History of shoulder surgery History of removal of cyst History of microdiscectomy S/P YU-BSO (total abdominal hysterectomy and bilateral salpingo-oophorectomy) (~2002) Family History Father Vascular disease Myocardial infarction Mother COPD (chronic obstructive pulmonary disease) Lung cancer Brother Myocardial infarction Sister Stroke Paternal Grandmother Stroke Other Substance abuse Social History Housing: Apartment Alcohol intake: former Patient Tobacco Use Status: Current everyday Tobacco user Tobacco use type: Cigarette Cigarette Packs Per Day: 0.5 Cigarettes Per Day: 10.0 e-Cigarette/Vaping Use: Never Used Second Hand Smoke Exposure: Yes service: No Current occupational status: employed Cognitive needs: No Hearing needs: Yes (Left ear hearing loss per pt) Vision needs: Yes Physical Exam Vital Signs: Last Vital Signs Pulse 63 02/17/25 10:32 BP 104/48 L 02/17/25 10:32 BMI result Body Mass Index 17.6 Assessment & Plan Assessment & Plan (1) Common bile duct dilation: Code(s): K83.8 - Other specified diseases of biliary tract Category: Medical Plan: as above Medications: New hyoscyamine sulfate 0.25 mg (2 x 0.125 mg) PO BID-TID 60 tabs 1RF sod sulf-pot chloride-mag sulf 1.479-0.188- 0.225 gram (Sutab) PO PER PKG DIR 24 tabs 0RF Discontinued sodium,potassium,mag sulfates 17.5-3.13-1.6 gram (Suprep Bowel Prep Kit) Discontinued Reason: Doctor's Order DILUTE; drink 1/2 at 6-8 pm and half at 11 PM- 1AM 354 mL 0RF Coding Level of Care Code Est Pt Level 3 (55656) Diagnoses Common bile duct dilation K83.8
[2025-02-17 10:32] VITALS: BP 104/48; PULSE 63; BMI 17.6
== END 2025-02-17 11:10 | disposition home or self-care (01) ==
LOC: HO.HGI 10:05
PROVIDERS: PCP Internal Medicine; Visit Provider Internal Medicine Gastroenterology
DX: K83.8 Other specified diseases of biliary tract (principal)
CPT/HCPCS: 99213